=== PATIENT | male | born 1930 | race Caucasian/White ===

== ENCOUNTER 2018-08-05 17:00 | Inpatient (IN) ==
[2018-08-05] MEDS ORDERED: Isovue-370 500 ML INFUS..BTL IV ONE (17:28)
[2018-08-05] MEDS ORDERED: 0.9 % Sodium Chloride 500 ML IVC ONE (17:29)
[2018-08-05 17:44] LABS: Basophils # 0.1 K/mcL (0.0-0.2); Basophils % 0.4 %; Eosinophils % 0.1 %; Hematocrit 41.7 % (37.5-50.1); Hemoglobin 13.8 g/dL (12.9-16.9); Immature Granulocytes % 0.6 % (0-4); Lymphocytes % 12.3 %; Mean Corpuscular HGB Conc 33.1 g/dL (31.6-35.5); Mean Corpuscular Hemoglobin 30.9 pg (28.0-33.3); Mean Corpuscular Volume 93.5 fL (83.0-100.0); Mean Platelet Volume 9.8 fL (9.4-12.4); Monocytes # 1.8 K/mcL (0.0-1.3); Monocytes % 11.2 %; Platelet Count 226 K/mcL (140-400); Red Blood Count 4.46 M/mcL (4.19-5.50); Red Cell Distribution Width 13.2 % (11.5-14.5); Segmented Neutrophils % 75.4 %
[2018-08-05] MEDS: 0.9 % Sodium Chloride 1,000 ML IVC SCH (18:01)
[2018-08-05 18:04] LABS: Albumin/Globulin Ratio 0.6 (1.1-2.2); Bilirubin,Direct 0.3 mg/dL (0.0-0.2); Bilirubin,Indirect 0.3 mg/dL (0.0-1.2); Bilirubin,Total 0.6 mg/dL (0.3-1.0); Calcium 9.4 mg/dL (8.6-10.3); Globulin 5.2 g/dL (2.4-3.5); Magnesium 1.8 mg/dL (1.6-2.6); Phosphorous 1.5 mg/dL (2.7-4.5); Potassium 4.1 mEq/L (3.5-5.1); Total Protein 8.2 g/dL (6.4-8.9)
[2018-08-05 18:07] LABS: Troponin I 0.04 ng/mL (< 0.04)
[2018-08-05 18:32] LABS: Bilirubin,Urine Negative (Negative); Blood,Urine Large (Negative); Clarity,Urine Turbid (Clear); Color,Urine Yellow (Yellow); Glucose,Urine (UA) Normal (Normal); Ketones,Urine Negative (Negative); Leukocyte Esterase,Urine Large (Negative); Nitrite,Urine Negative (Negative); Protein,Urine >=300 mg/dL (Neg-Trace); Specific Gravity,Urine 1.009 (1.010-1.025); Urobilinogen,Urine Normal (Normal)
--- NOTE | 2018-08-05 18:32 | Emergency Department Note ---
Disposition Clinical Impression: Sepsis Qualifiers: Sepsis type: sepsis due to unspecified organism Qualified Code(s): A41.9 - Sepsis, unspecified organism UTI (urinary tract infection) Qualifiers: Urinary tract infection type: acute cystitis Hematuria presence: with hematuria Qualified Code(s): N30.01 - Acute cystitis with hematuria Ureteral obstruction Qualifiers: Laterality: unspecified laterality Qualified Code(s): N13.5 - Crossing vessel and stricture of ureter without hydronephrosis Disposition: Admitted As Inpatient Condition: Good Referrals: Kiran Jacobo MD [Primary Care Provider] - Forms: ED Satisfaction Letter General Adult HPI - General Chief complaint: ED Weakness Stated complaint: Weakness/dizzy/AMS Time Seen by Provider: 08/05/18 17:18 Source: patient Limitations: no limitations Nursing Notes Reviewed: Yes Vital Signs Reviewed: Yes - History of Present Illness HPI Narrative: Patient presenting to the emergency department with complaints of weakness and dizziness since this morning. Patient had 2 falls today and has not been acting himself. Patient does take Plavix area is unsure whether he hit his head. The patient has been recently treated for UTIs. Seen in urgent care as well as had a [facility] emergency department. Ellison was placed this time the patient pulled up with urology on Wednesday. The symptoms had been significant improving but given his history of what they described as purulent discharge from the initial Ellison patient likely has a UTI. Patient does have a temperature as well as tachycardia. Sepsis order set has been ordered. Imaging of his head for trauma, chest x-ray, abdomen and pelvis for further evaluation of possible infectious source given some abdominal tenderness to the suprapubic as well as l eft-sided abdomen. Pain Scale: 6 - Related Data Home Medications Medication Instructions Recorded Confirmed Tiotropium [Spiriva] 1 puff PO DAILY 05/02/15 07/25/18 Cartia Xt 120 mg PO QAM 07/03/18 07/25/18 Clopidogrel [Plavix] 75 mg PO DAILY 07/03/18 07/25/18 Ipratropium [Atrovent Inhaler] 2 puff IH Q6H 07/03/18 07/25/18 Losartan [Cozaar] 25 mg PO DAILY 07/03/18 07/25/18 Memantine [Namenda] 10 mg PO BID 07/03/18 07/25/18 Metoprolol [Lopressor] 25 mg PO QAM 07/03/18 07/25/18 Quetiapine Fumarate [Seroquel] 50 mg PO HS 07/03/18 07/25/18 Tamsulosin [Flomax] 0.4 mg PO DAILY 07/03/18 07/25/18 clonazePAM [Clonazepam] 0.5 mg PO PRN PRN 07/03/18 07/25/18 Previous Rx's Medication Instructions Recorded Phenazopyridine HCl [Pyridium] 200 mg PO TIDAC #9 tab 07/03/18 cephALEXin [Keflex] 500 mg PO QID #40 capsule 07/03/18 Cephalexin [Keflex] 500 mg PO TID #21 capsule 07/25/18 Phenazopyridine HCl [Pyridium] 200 mg PO TID #6 tab 07/25/18 Allergies Allergy/AdvReac Type Severity Reaction Status Date / Time azithromycin [From Zithromax] Allergy Mild Hives Verified 07/25/18 09:23 Review of Systems: CONSTITUTIONAL: Weakness fatigue and fever HEENT: Eyes: No visual changes. Ears, Nose, Throat: No hearing loss, difficulty talking or unable to swallow. SKIN: No rash or itching. CARDIOVASCULAR: No chest pain, chest pressure or chest discomfort. No palpitations or edema. RESPIRATORY: No shortness of breath, cough or sputum. GASTROINTESTINAL: No anorexia, nausea, vomiting or diarrhea. No abdominal pain or blood. GENITOURINARY: No burning on urination or hematuria. NEUROLOGICAL: Dizziness and near syncope No headache, paralysis, ataxia, numbness or tingling in the extremities. No change in bowel or bladder control. MUSCULOSKELETAL: No muscle pain, back pain, joint pain or stiffness. Past Medical History - Past Medical History Medical history: Reports: non-contributory, COPD, coronary artery disease, hypertension, other Surgical history: Reports: no surgical history, cholecystectomy Psychiatric history: Reports: no psych history - Social History Smoking Status: Former smoker Smokeless Tobacco Status: No Alcohol use: Reports: none Drug use: Reports: none Physical Exam General: Fatigue with generalized decrease in strength Head: Normocephalic Atraumatic Eyes: PERRL, EOMI ENT: Airway patent, no stridor Neck: supple Chest: Lungs clear to auscultation bilateral Cardiac: Regular rhythm Abdomen: soft, mild tenderness to the suprapubic and left lower quadrant nondistended; no guarding, rebound, or tenderness to percussion Musculoskeletal: Calves symmetric, nontender Skin: No rash, normal skin tone Neuro: Alert and Oriented to person, place, and time; No focal deficit, - General Limitations: no limitations General appearance: alert, in no apparent distress Course - Reevaluation(s) Reevaluation #1: Kidney function and troponin mildly elevated. GEORGINA with troponin of 0.04. Patient has elevated troponins in the past. Aspirin will be given after negative head CT. Leukocytosis with left shift. Source pending. Reevaluation #2: Blood cultures obtained. Patient with initial 500 mL bolus as well as 125 per hour given cardiac history. Antibiotics given, empiric, broad-spectrum. CT with bladder wall thickening as well as possible UPJ obstruction that will need further urology evaluation. Hospitalist accepts for admission. Vital Signs Temperature 101.7 F H 08/05/18 17:17 Pulse Rate 112 08/05/18 17:17 Respiratory Rate 28 08/05/18 17:17 Blood Pressure 147/65 08/05/18 17:17 O2 Sat by Pulse Oximetry 93 08/05/18 17:17 Temperature 100.6 F H 08/05/18 18:47 Pulse Rate 87 08/05/18 18:47 Respiratory Rate 28 08/05/18 18:47 Blood Pressure 131/65 08/05/18 18:47 O2 Sat by Pulse Oximetry 99 08/05/18 18:47 Oxygen Delivery Oxygen Delivery Nasal Cannula Medical Decision Making - Medical Records Medical records reviewed: Yes I reviewed the patient's medical records. - Lab Data Lab results reviewed: Yes I reviewed the patient's lab results. Result diagrams: 08/05/18 17:25 08/05/18 17:25 Lab Results 08/05/18 08/05/18 08/05/18 Range/Units 13:20 17:25 17:25 WBC 15.9 H (4.3-11.1) K/mcL RBC 4.46 (4.19-5.50) M/mcL Hgb 13.8 (12.9-16.9) g/dL Hct 41.7 (37.5-50.1) % MCV 93.5 (83.0-100.0) fL MCH 30.9 (28.0-33.3) pg MCHC 33.1 (31.6-35.5) g/dL RDW 13.2 (11.5-14.5) % Plt Count 226 (140-400) K/mcL MPV 9.8 (9.4-12.4) fL Immature Gran % 0.6 (0-4) % Seg Neutrophils % 75.4 % Lymphocytes % 12.3 % Monocytes % 11.2 % Eosinophils % 0.1 % Basophils % 0.4 % Neutrophils # 12.0 H (1.6-8.9) K/mcL Lymphocytes # 2.0 (0.6-4.6) K/mcL Monocytes # 1.8 H (0.0-1.3) K/mcL Eosinophils # 0.0 (0.0-0.6) K/mcL Basophils # 0.1 (0.0-0.2) K/mcL Sodium 133 L (136-145) mEq/L Potassium 4.1 (3.5-5.1) mEq/L Chloride 101 (98-107) mEq/L Carbon Dioxide 25 (23-29) mEq/L BUN 22 (8-23) mg/dL Creatinine 1.50 H (0.70-1.30) mg/dL Est GFR ( Amer) 53 L (> 60) Est GFR (Non-Af Amer) 44 L (> 60) BUN/Creatinine Ratio 15 (6-26) Glucose 165 H (70-105) mg/dL Calculated Osmolality 283 (280-300) Lactic Acid (0.5-2.2) mmol/L Calcium 9.4 (8.6-10.3) mg/dL Phosphorus 1.5 L (2.7-4.5) mg/dL Magnesium 1.8 (1.6-2.6) mg/dL Total Bilirubin 0.6 (0.3-1.0) mg/dL Direct Bilirubin 0.3 H (0.0-0.2) mg/dL Indirect Bilirubin 0.3 (0.0-1.2) mg/dL AST 20 (13-39) Units/L ALT 18 (7-52) Units/L Alkaline Phosphatase 83 (34-104) Units/L Troponin I 0.04 H* (< 0.04) ng/mL Serum Total Protein 8.2 (6.4-8.9) g/dL Albumin 3.0 L (3.5-5.7) g/dL Globulin 5.2 H (2.4-3.5) g/dL Albumin/Globulin Ratio 0.6 L (1.1-2.2) Urine Color Yellow (Yellow) Urine Clarity Turbid A (Clear) Urine pH 6.0 (5.0-8.0) pH Units Ur Specific [place] 1.009 L (1.010-1.025) Urine Protein >=300 H (Neg-Trace) mg/dL Urine Glucose (UA) Normal (Normal) mg/dL Urine Ketones Negative (Negative) mg/dL Urine Blood Large H (Negative) Urine Nitrite Negative (Negative) Urine Bilirubin Negative (Negative) Urine Urobilinogen Normal (Normal) mg/dL Ur Leukocyte Esterase Large H (Negative) Urine Microscopic RBC 50-100 H (0-3) per hpf Urine Microscopic WBC TNTC H (0-3) per hpf Ur Squamous Epith Cells Many H (None-Few) per lpf Urine Bacteria Many H (None-Few) per hpf Hyaline Casts None Seen (None-Few) per lpf Ur Culture Indicated? NO. A (NO) 08/05/18 Range/Units 17:25 WBC (4.3-11.1) K/mcL RBC (4.19-5.50) M/mcL Hgb (12.9-16.9) g/dL Hct (37.5-50.1) % MCV (83.0-100.0) fL MCH (28.0-33.3) pg MCHC (31.6-35.5) g/dL RDW (11.5-14.5) % Plt Count (140-400) K/mcL MPV (9.4-12.4) fL Immature Gran % (0-4) % Seg Neutrophils % % Lymphocytes % % Monocytes % % Eosinophils % % Basophils % % Neutrophils # (1.6-8.9) K/mcL Lymphocytes # (0.6-4.6) K/mcL Monocytes # (0.0-1.3) K/mcL Eosinophils # (0.0-0.6) K/mcL Basophils # (0.0-0.2) K/mcL Sodium (136-145) mEq/L Potassium (3.5-5.1) mEq/L Chloride (98-107) mEq/L Carbon Dioxide (23-29) mEq/L BUN (8-23) mg/dL Creatinine (0.70-1.30) mg/dL Est GFR ( Amer) (> 60) Est GFR (Non-Af Amer) (> 60) BUN/Creatinine Ratio (6-26) Glucose (70-105) mg/dL Calculated Osmolality (280-300) Lactic Acid 2.7 H (0.5-2.2) mmol/L Calcium (8.6-10.3) mg/dL Phosphorus (2.7-4.5) mg/dL Magnesium (1.6-2.6) mg/dL Total Bilirubin (0.3-1.0) mg/dL Direct Bilirubin (0.0-0.2) mg/dL Indirect Bilirubin (0.0-1.2) mg/dL AST (13-39) Units/L ALT (7-52) Units/L Alkaline Phosphatase (34-104) Units/L Troponin I (< 0.04) ng/mL Serum Total Protein (6.4-8.9) g/dL Albumin (3.5-5.7) g/dL Globulin (2.4-3.5) g/dL Albumin/Globulin Ratio (1.1-2.2) Urine Color (Yellow) Urine Clarity (Clear) Urine pH (5.0-8.0) pH Units Ur Specific [place] (1.010-1.025) Urine Protein (Neg-Trace) mg/dL Urine Glucose (UA) (Normal) mg/dL Urine Ketones (Negative) mg/dL Urine Blood (Negative) Urine Nitrite (Negative) Urine Bilirubin (Negative) Urine Urobilinogen (Normal) mg/dL Ur Leukocyte Esterase (Negative) Urine Microscopic RBC (0-3) per hpf Urine Microscopic WBC (0-3) per hpf Ur Squamous Epith Cells (None-Few) per lpf Urine Bacteria (None-Few) per hpf Hyaline Casts (None-Few) per lpf Ur Culture Indicated? (NO) - Radiology Data Radiology results reviewed: Yes I reviewed the patient's radiology results. - EKG Data EKG #1 EKG attestation: Yes I reviewed and interpreted this EKG. EKG results narrative: EKG shows sinus tachycardia with a heart rate of 100. MT interval 164 every RS 79 QTC [address] elevations or depressions. No significant change other than tachycardia from EKG of 05/02/15.
[2018-08-05] MEDS ORDERED: Piperacillin/Tazobactam 3.375 GM in 0.9 % Sodium Chloride Mini Bag 100 ML IVPB ONE (18:34)
[2018-08-05 18:35] LABS: Bacteria,Urine Many per hpf (None-Few); RBC,Urine 50-100 per hpf (0-3); Squamous Epithelial Cell,Urine Many per lpf (None-Few); WBC,Urine TNTC per hpf (0-3)
[2018-08-05 18:53] LABS: Hyaline Casts,Urine None Seen per lpf (None-Few)
[2018-08-05] MEDS ORDERED: Acetaminophen 325 MG TABLET PO STA (19:26)
[2018-08-06] MEDS: Aspirin Enteric Coated 81 MG Tablet PO SCH ×2 (00:07→20:44)
[2018-08-06] MEDS: clonazePAM 0.5 MG TABLET PO PRN (00:53)
[2018-08-06] MEDS ORDERED: Naloxone 0.4 MG/ML INJ IVP PRN (01:42)
[2018-08-06] MEDS: 0.9 % Sodium Chloride 1,000 ML IVC SCH ×4 (02:20→20:42)
--- NOTE | 2018-08-06 03:52 | Internal Med History&Physical ---
Date of Encounter: 08/06/18 Time of Encounter: 00:30 Internal Medicine - H&P: HPI Chief complaint: Urinary tract infection Admitted From: Emergency Dept Plans for Post Hospital Care: Home History of present illness: Mr. Fatima is a 88 year old male Patient presented to the emergency room because he felt weak and has not been able to walk very well for a couple days. He states also that he has fallen twice in the last 24 hours but denies hitting his head he denies cough, chest pain, diarrhea, shortness of breath but does have oxygen at night at 2 L nasal cannula due to history of silicosis. He states he has some abdominal pain in the lower part of his abdomen and was treated 2 weeks ago for urinary tract inf ection. He denies hematuria and dysuria. In the emergency room patient's CBC was within normal limits, BMP showed elevated creatinine of 1.50 and a glucose of 165. Patient's initial lactic acid was 2.7, troponin was 0.04 the patient has a history of elevated troponins. EKG showed sinus tachycardia with a rate of 100 a QTC of [address] changes. Urinalysis showed large blood, large leukocyte esterase but negative nitrites. An abdomen/pelvis CT was also performed with results as below: The wall of the urinary bladder is irregularly thickened and there is mild perivesical fat stranding. While the bladder wall thickening may represent hypertrophy from outlet obstruction in this patient with prostatomegaly, cystitis and tumor are not excluded. Correlation with cystoscopy recommended. There is new right hydronephrosis and hydroureter extending to the urinary bladder with no evidence of structure in calculus. Obstructing stricture or mass at the UVJ must be considered and follow-up cystoscopy with retrograde study may be helpful. Stable findings at the lung bases as above in this patient with history of silicosis and progressive massive fibrosis. Patient's head CT showed no acute intracranial abnormalities and chest x-ray demonstrated chronic parenchymal disease most compatible with silicosis with progressive massive fibrosis in the upper lobes no acute process noted. Blood cultures and urine cultures were obtained, patient was started on Zosyn and admitted to the hospital for further management. upon my assessment she states that he feels anxious. He also is shivering and is requesting blankets. While I was examining the patient patient's heart rate increased to the 170s/180s. Patient stated that he has a history of a fast heart rate, and review of his history shows atrial fibrillation with RVR. Stat echocardiogram was obtained which showed atrial fibrillation. I gave the patient 15 mg of Cardizem which improved his heart rate to the 130s to 140s. Patient's blood pressures were stable during this time and it Cardizem drip was started. Patient denied chest pain during this time and had no other complaints besides shivering. Patient's heart rate eventually became regular and is shivering stopped. Patient's nighttime medications were also given, including his dose of when necessary clonazepam which he does regularly take for anxiety. I discussed with the patient his CODE STATUS and he stated that he would not want to be resuscitated, declined chest compressions if required and also did not want to be intubated. 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 TURP - Social History Smoking Status: Former smoker Smokeless Tobacco Status: No Alcohol use: none Drug use: none - Family History Father Hx Family Cancer: Yes Internal Medicine - H&P: Meds Clopidogrel [Plavix] 75 mg PO DAILY 07/03/18 [History] Ipratropium [Atrovent Inhaler] 2 puff IH Q4H PRN 07/03/18 [History] Losartan [Cozaar] 25 mg PO DAILY 07/03/18 [History] Memantine [Namenda] 10 mg PO BID 07/03/18 [History] Metoprolol [Lopressor] 25 mg PO QAM PRN MDD 2 TABS PER 24H 07/03/18 [History] Quetiapine Fumarate [Seroquel] 50 mg PO HS 07/03/18 [History] Tamsulosin [Flomax] 0.4 mg PO DAILY 07/03/18 [History] clonazePAM [Clonazepam] 0.5 mg PO DAILY PRN 07/03/18 [History] Aspirin [Lo-Dose Aspirin EC] 81 mg PO HS 08/05/18 [History] Loratadine [Allergy Relief] 10 mg PO DAILY PRN 08/05/18 [History] Tiotropium [Spiriva] 1 puff IH DAILY 08/05/18 [History] dilTIAZem HCl [Diltiazem 24Hr ER] 120 mg PO DAILY 08/05/18 [History] Allergy/AdvReac Type Severity Reaction Status Date / Time azithromycin [From Zithromax] Allergy Mild Hives Verified 07/25/18 09:23 fluticasone [From Flonase] AdvReac See Verified 08/05/18 22:59 Comments gabapentin AdvReac Headache Verified 08/05/18 22:59 All Systems PM: A 10-system review of systems was performed and is negative for pertinent findings except as documented above in the HPI. - Constitutional Vitals: Temp Pulse Resp BP Pulse Ox 98.1 F 134 18 100/42 97 08/06/18 00:25 08/06/18 01:16 08/06/18 01:16 08/06/18 03:19 08/06/18 01:16 General appearance: Present: cooperative, A&O X 3, pleasant, no acute distress, answers questions appropriately Exam: As above - Head Head exam: Present: normal inspection - Eye Eye exam: Present: EOMI, normal appearance - Neck Neck exam general surgery: Absent: tenderness - Respiratory Respiratory exam: Present: respiratory distress, wheezes. Absent: chest wall tenderness, decreased breath sounds, CTAB - Cardiovascular Cardiovascular exam: Present: irregular rhythm. Absent: diastolic murmur, s ystolic murmur Additional comments: Patient's heart rate initially on exam was tachycardic and irregular, converting to atrial fibrillation with RVR then normalizing to regular rate after treatment - GI/Abdominal GI/Abdominal exam: Present: normal bowel sounds, soft, tenderness Additional comments: Suprapubic tenderness with palpation - Extremities Exam Extremities exam: Present: warm, radial pulses palpable and symmetrical. Absent: calf tenderness, pedal edema, tenderness - Neurological Exam Neurological exam: Present: no focal deficits, strengths equal and symetr throughout. Absent: motor sensory deficit, facial droop, speech deficit - Skin Skin exam: Present: dry, normal color, warm. Absent: rash Internal Med - H&P Results - Labs CBC & Chem 7: 08/05/18 17:25 08/05/18 17:25 Labs: Short CBC 08/05/18 Range/Units 17:25 WBC 15.9 H (4.3-11.1) K/mcL Hgb 13.8 (12.9-16.9) g/dL Hct 41.7 (37.5-50.1) % Plt Count 226 (140-400) K/mcL Neutrophils # 12.0 H (1.6-8.9) K/mcL BMP 08/05/18 17:25 Sodium 133 L Potassium 4.1 Chloride 101 Carbon Dioxide 25 BUN 22 Creatinine 1.50 H Glucose 165 H Calcium 9.4 Cardiac Enzymes 08/05/18 08/06/18 Range/Units 17:25 01:26 Troponin I 0.04 H* 0.04 H* (< 0.04) ng/mL Liver Function 08/05/18 Range/Units 17:25 Total Bilirubin 0.6 (0.3-1.0) mg/dL Direct Bilirubin 0.3 H (0.0-0.2) mg/dL AST 20 (13-39) Units/L ALT 18 (7-52) Units/L Alkaline Phosphatase 83 (34-104) Units/L Albumin 3.0 L (3.5-5.7) g/dL Urine 08/05/18 Range/Units 13:20 Urine Color Yellow (Yellow) Urine Clarity Turbid A (Clear) Urine pH 6.0 (5.0-8.0) pH Units Ur Specific [place] 1.009 L (1.010-1.025) Urine Protein >=300 H (Neg-Trace) mg/dL Urine Glucose (UA) Normal (Normal) mg/dL - Impressions ITS Impressions Chest X-Ray 08/05/18 17:21 IMPRESSION: Chronic parenchymal lung disease. 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 No definite acute process is demonstrated D/ / Yazan Walsh MD / Yazan Walsh MD Interpreting Provider: Yazan Walsh MD Abdomen/Pelvis CT 08/05/18 17:28 IMPRESSION: The wall of the urinary bladder is irregularly thickened and there is mild perivesical fat stranding. While the bladder wall thickening may represent hypertrophy from outlet obstruction in this patient with prostatomegaly, cystitis and tumor are not excluded. Correlation with cystoscopy recommended. There is new right hydronephrosis and hydroureter extending to the urinary bladder with no evidence of structure in calculus. Obstructing stricture or mass at the UVJ must be considered and follow-up cystoscopy with retrograde study may be helpful. Stable findings at the lung bases as above in this patient with history of silicosis and progressive massive fibrosis. D/ / Abdoulaye Billy MD / Abdoulaye Billy MD Interpreting Provider: Abdoulaye Billy MD Head CT 08/05/18 17:28 IMPRESSION: No acute intracranial abnormality. D/ / Abdoulaye Billy MD / Abdoulaye Billy MD Interpreting Provider: Abdoulaye Billy MD - Assessment and plan (1) UTI (urinary tract infection) Current Visit: Yes Status: Acute Assessment and plan: Patient's urinalysis was positive for leukocyte esterase, large blood and negative for nitrites. He had previously been treated 2 weeks ago for urinary tract infection as well. Blood and urine cultures drawn, patient started on Zosyn. Patient's CT scan also demonstrated new hydronephrosis and hydroureter extending to the urinary bladder without evidence of calculus. Obstructing stricture or mass at the UVJ should be considered, and radiology recommended cystoscopy with retrograde study. Continue IV antibiotics Follow-up cultures when available Continue to monitor urine output Urology consult Qualifiers: Urinary tract infection type: acute cystitis Hematuria presence: with hematuria Qualified Code(s): N30.01 - Acute cystitis with hematuria (2) Atrial fibrillation with RVR Current Visit: No Status: Acute Assessment and plan: Patient has history of atrial fibrillation with RVR, with episode of A. fib with RVR during my examination and through the night. Patient responded well to IV bolus of diltiazem 15 mg, and rate seem to be controlled with IV fluid boluses. Patient continued to be monitored closely, denied chest pain throughout the night. Patient also denies shortness of breath but does have elevated respiratory rate. Unclear what patient's baseline respiratory rate is consi dering his history of silicosis. Continue to monitor In your IV fluid boluses, and consider restarting diltiazem drip as long as blood pressures allow Restart home meds when controlled in the morning (3) Acute respiratory failure with hypoxia Current Visit: No Status: Acute Assessment and plan: Patient is on 2 L of oxygen which he states he uses mostly at night. He was hypoxic into the 80s on room air during my evaluation. Patient was placed on oxygen mask at 5 L and his oxygenation improved. Currently he is maintaining saturations greater than 96% on 3 L nasal cannula. Lung sounds remain at p atient's baseline, which are mildly coarse. Patient also has slight wheezing as well. Breathing treatment with ipratropium Continue oxygenation to maintain sats greater than 90% Monitor respiratory rate Continuous pulse ox bedside (4) Elevated troponin Current Visit: No Status: Acute Assessment and plan: Patient had elevated troponin of 0.04, and on repeat continued to be elevated at 0.04. EKG demonstrated atrial fibrillation with RVR but no ST changes noted. Patient also denies chest pain. He has a history of elevated troponin in this range in the past as well. Elevation likely secondary to demand ischemia due to A. fib as well as hypoxia. Continue to monitor Continue to trend troponins (5) Elevated lactic acid level Current Visit: Yes Status: Acute Assessment and plan: Agents lactic acid in the emergency room was 2.7, increasing to 3.6 on recheck. Patient being treated for urinary tract infection, patient's temperature has remained within normal limits. He has elevated heart rate due to atrial fibrillation and respiratory rate also increased which is elevated at baseline due to his lung pathology. Continue IV fluid hydration Treating urinary tract infection as above Continue to monitor lactic acid Monitor vitals for worsening signs of infection (6) Hyponatremia Current Visit: No Status: Acute Assessment and plan: Slightly low sodium of 133. Patient is receiving IV fluids. Recheck labs in the morning (7) Silicosis Current Visit: Yes Status: Acute Assessment and plan: History of silicosis, patient is a former [employer]. Continue oxygen supplementation as required Breathing Treatments (8) DVT prophylaxis Current Visit: Yes Status: Acute Assessment and plan: Subcutaneous Heparin - Time Spent With Patient Total time spent is greater than 50% in coordination of care (as documented) at patient's floor/unit and/or counseling patient: Greater than 35 minutes
[2018-08-06] MEDS: Ipratropium Neb 0.5 MG NEBULIZER IH SCH ×5 (05:59→20:52)
[2018-08-06] MEDS ORDERED: *HR* Heparin 5,000 UNIT/ML VIAL SQ SCH (06:00)
[2018-08-06 06:17] LABS: Hematocrit 33.3 % (37.5-50.1); Mean Corpuscular HGB Conc 32.4 g/dL (31.6-35.5); Mean Corpuscular Hemoglobin 30.4 pg (28.0-33.3); Mean Corpuscular Volume 93.8 fL (83.0-100.0); Platelet Count 189 K/mcL (140-400); Red Blood Count 3.55 M/mcL (4.19-5.50); Red Cell Distribution Width 13.3 % (11.5-14.5)
[2018-08-06 06:21] LABS: Hemoglobin 10.8 g/dL (12.9-16.9)
[2018-08-06 07:05] LABS: Calcium 7.6 mg/dL (8.6-10.3); Potassium 3.7 mEq/L (3.5-5.1)
[2018-08-06] MEDS: Piperacillin/Tazobactam 3.375 GM in 0.9 % Sodium Chloride Mini Bag 100 ML IVPB SCH ×2 (08:27→16:20)
[2018-08-06] MEDS ORDERED: Diltiazem CD (24hr) 120 MG CAPSULE PO SCH (09:00)
--- NOTE | 2018-08-06 09:36 | Urology - Consult Note ---
Date of Encounter: 08/06/18 Time of Encounter: 09:33 - Assessment and Plan (1) Acute renal insufficiency Current Visit: Yes Status: Acute Assessment and plan: Patient serum creatinine has slightly worsened from yesterday to today. We will need to continue with hydration and we will follow this closely. (2) Hydronephrosis, right Current Visit: Yes Status: Acute Assessment and plan: This is likely secondary to chronic urinary retention and reflux from the urinary retention. We will need to keep catheter in place at this time. No urgent need for cystoscopy and right ureteral stent placement (3) Urinary retention Current Visit: Yes Status: Acute Assessment and plan: Catheter will need to remain in place. We will attempt to obtain outside urology records once patient more lucid (4) Sepsis Current Visit: Yes Status: Acute Assessment and plan: Continue with broad-spectrum antibiotics until cultures return. Qualifiers: Sepsis type: sepsis due to unspecified organism Qualified Code(s): A41.9 - Sepsis, unspecified organism (5) UTI (urinary tract infection) Current Visit: Yes Status: Acute Assessment and plan: Continue with broad-spectrum antibiotics until cultures return Qualifiers: Urinary tract infection type: acute cystitis Hematuria presence: with hematuria Qualified Code(s): N30.01 - Acute cystitis with hematuria Urology CN:HPI Consult date: 08/06/18 Reason for consult Urology: Hydronephrosis Requesting physician: Az Cheung History of present illness: Aleksandr is a 88-year-old male with a history of off-and-on catheterization per the patient. Patient was at [facility] last week where a catheter was placed. Approximately 600 mL's of urine was returned. According to the notes from that visit the patient has a urologist and the urologist had remove the catheter prior to that visit. I do not have any documentation and the patient does not follow with our group. Patient is now admitted secondary to acute UTI with fever. Patient also with leukocytosis and elevated serum creatinine. 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 TURP - Social History Smoking Status: Former smoker Smokeless Tobacco Status: No Alcohol use: none Drug use: none - Family History Father Hx Family Cancer: Yes Medications and Allergies Clopidogrel [Plavix] 75 mg PO DAILY 07/03/18 [History] Ipratropium [Atrovent Inhaler] 2 puff IH Q4H PRN 07/03/18 [History] Losartan [Cozaar] 25 mg PO DAILY 07/03/18 [History] Memantine [Namenda] 10 mg PO BID 07/03/18 [History] Metoprolol [Lopressor] 25 mg PO QAM PRN MDD 2 TABS PER 24H 07/03/18 [History] Quetiapine Fumarate [Seroquel] 50 mg PO HS 07/03/18 [History] Tamsulosin [Flomax] 0.4 mg PO DAILY 07/03/18 [History] clonazePAM [Clonazepam] 0.5 mg PO DAILY PRN 07/03/18 [History] Aspirin [Lo-Dose Aspirin EC] 81 mg PO HS 08/05/18 [History] Loratadine [Allergy Relief] 10 mg PO DAILY PRN 08/05/18 [History] Tiotropium [Spiriva] 1 puff IH DAILY 08/05/18 [History] dilTIAZem HCl [Diltiazem 24Hr ER] 120 mg PO DAILY 08/05/18 [History] 3 Allergy/AdvReac Type Severity Reaction Status Date / Time azithromycin [From Zithromax] Allergy Mild Hives Verified 07/25/18 09:23 fluticasone [From Flonase] AdvReac See Verified 08/05/18 22:59 Comments gabapentin AdvReac Headache Verified 08/05/18 22:59 Review of Systems - Constitutional fever(s), weakness, no chills - EENT Nose, mouth and throat: no dizziness, no sore throat - Cardiovascular no chest pain, no diaphoresis - Respiratory no cough, no dyspnea - Gastrointestinal no nausea, no vomiting - Genitourinary as per HPI - Musculoskeletal muscle weakness, no back pain - Integumentary no erythema, no swelling - Neurological confusion, no sensory deficit, no syncope - Psychiatric confusion, no depression - Hematologic/Lymphatic no easy bleeding - Allergic/Immunologic no throat swelling, no wheezing Exam Initial Vital Signs Temp Pulse Resp BP Pulse Ox 101.7 F H 112 28 147/65 93 08/05/18 17:17 08/05/18 17:17 08/05/18 17:17 08/05/18 17:17 08/05/18 17:17 General/Neuological: alert and oriented x 3 Eyes: normal pupils, non-icteric Neck: no lymphadenopathy noted, supple to touch Cardiovascular: RRR, no murmurs Respiratory: normal respiratory effort, clear bilaterally ABD: soft, nontender, no masses palpated, good bowel sounds Back: no pain on percussion bilaterally : normal phallus, normal scrotum, testicles and epididymides normal, urethral meatus normal with catheter draining slightly cloudy urine Skin: no rashes noted Musculoskeletal: normal gait, FROMx4 Urology Results - Labs 08/06/18 05:45 08/06/18 05:45 Abnormal lab results WBC 19.5 K/mcL (4.3-11.1) H 08/06/18 05:45 RBC 3.55 M/mcL (4.19-5.50) L 08/06/18 05:45 Hgb 10.8 g/dL (12.9-16.9) L D 08/06/18 05:45 Hct 33.3 % (37.5-50.1) L 08/06/18 05:45 Neutrophils # 12.0 K/mcL (1.6-8.9) H 08/05/18 17:25 Monocytes # 1.8 K/mcL (0.0-1.3) H 08/05/18 17:25 Chloride 110 mEq/L (98-107) H 08/06/18 05:45 Carbon Dioxide 22 mEq/L (23-29) L 08/06/18 05:45 BUN 24 mg/dL (8-23) H 08/06/18 05:45 Creatinine 1.61 mg/dL (0.70-1.30) H 08/06/18 05:45 Est GFR ( Amer) 49 (> 60) L 08/06/18 05:45 Est GFR (Non-Af Amer) 41 (> 60) L 08/06/18 05:45 Glucose 129 mg/dL (70-105) H 08/06/18 05:45 Calcium 7.6 mg/dL (8.6-10.3) L 08/06/18 05:45 Phosphorus 1.5 mg/dL (2.7-4.5) L 08/05/18 17:25 Direct Bilirubin 0.3 mg/dL (0.0-0.2) H 08/05/18 17:25 Troponin I 0.07 ng/mL (< 0.04) H* 08/06/18 05:45 Albumin 3.0 g/dL (3.5-5.7) L 08/05/18 17:25 Globulin 5.2 g/dL (2.4-3.5) H 08/05/18 17:25 Albumin/Globulin Ratio 0.6 (1.1-2.2) L 08/05/18 17:25 Urine Clarity Turbid (Clear) A 08/05/18 13:20 Ur Specific [place] 1.009 (1.010-1.025) L 08/05/18 13:20 Urine Protein >=300 mg/dL (Neg-Trace) H 08/05/18 13:20 Urine Blood Large (Negative) H 08/05/18 13:20 Ur Leukocyte Esterase Large (Negative) H 08/05/18 13:20 Urine Microscopic RBC 50-100 per hpf (0-3) H 08/05/18 13:20 Urine Microscopic WBC TNTC per hpf (0-3) H 08/05/18 13:20 Ur Squamous Epith Cells Many per lpf (None-Few) H 08/05/18 13:20 Urine Bacteria Many per hpf (None-Few) H 08/05/18 13:20 Ur Culture Indicated? NO. (NO) A 08/05/18 13:20 Diabetes panel 08/05/18 08/06/18 Range/Units 17:25 05:45 Sodium 133 L 137 (136-145) mEq/L Potassium 4.1 3.7 (3.5-5.1) mEq/L Chloride 101 110 H (98-107) mEq/L Carbon Dioxide 25 22 L (23-29) mEq/L BUN 22 24 H (8-23) mg/dL Creatinine 1.50 H 1.61 H (0.70-1.30) mg/dL Glucose 165 H 129 H (70-105) mg/dL Calcium 9.4 7.6 L (8.6-10.3) mg/dL AST 20 (13-39) Units/L ALT 18 (7-52) Units/L Alkaline Phosphatase 83 (34-104) Units/L Albumin 3.0 L (3.5-5.7) g/dL Calcium panel 08/05/18 08/06/18 Range/Units 17:25 05:45 Calcium 9.4 7.6 L (8.6-10.3) mg/dL Phosphorus 1.5 L (2.7-4.5) mg/dL Albumin 3.0 L (3.5-5.7) g/dL Pituitary panel 08/05/18 08/06/18 Range/Units 17:25 05:45 Sodium 133 L 137 (136-145) mEq/L Potassium 4.1 3.7 (3.5-5.1) mEq/L Chloride 101 110 H (98-107) mEq/L Carbon Dioxide 25 22 L (23-29) mEq/L BUN 22 24 H (8-23) mg/dL Creatinine 1.50 H 1.61 H (0.70-1.30) mg/dL Glucose 165 H 129 H (70-105) mg/dL Calcium 9.4 7.6 L (8.6-10.3) mg/dL Adrenal panel 08/05/18 08/06/18 Range/Units 17:25 05:45 Sodium 133 L 137 (136-145) mEq/L Potassium 4.1 3.7 (3.5-5.1) mEq/L Chloride 101 110 H (98-107) mEq/L Carbon Dioxide 25 22 L (23-29) mEq/L BUN 22 24 H (8-23) mg/dL Creatinine 1.50 H 1.61 H (0.70-1.30) mg/dL Glucose 165 H 129 H (70-105) mg/dL Calcium 9.4 7.6 L (8.6-10.3) mg/dL Total Bilirubin 0.6 (0.3-1.0) mg/dL AST 20 (13-39) Units/L ALT 18 (7-52) Units/L Alkaline Phosphatase 83 (34-104) Units/L Albumin 3.0 L (3.5-5.7) g/dL All other labs normal. - Imaging CT scan - abdomen: image reviewed CT scan - pelvis: image reviewed Consult Discharge Plan - Plan Referrals: Kiran Jacobo MD [Primary Care Provider] -
[2018-08-06] MEDS: *HR* Enoxaparin 80 MG/0.8 ML SYRINGE SQ SCH (18:15)
--- NOTE | 2018-08-06 23:57 | Internal Med Progress Note ---
Hospitalist Progress Note - Encounter Date of Encounter: 08/06/18 - Exam Vitals: Temp Pulse Resp BP Pulse Ox 98.8 F 88 16 117/67 92 08/06/18 21:34 08/06/18 21:34 08/06/18 21:34 08/06/18 21:34 08/06/18 21:34 - Time Spent with Patient Total time spent is greater than 50% in coordination of care (as documented) at patient's floor/unit and/or counseling patient: Internal Medicine: Result - Labs CBC & Chem 7: 08/06/18 05:45 08/06/18 05:45 Labs: Short CBC 08/06/18 Range/Units 05:45 WBC 19.5 H (4.3-11.1) K/mcL Hgb 10.8 L D (12.9-16.9) g/dL Hct 33.3 L (37.5-50.1) % Plt Count 189 (140-400) K/mcL BMP 08/06/18 05:45 Sodium 137 Potassium 3.7 Chloride 110 H Carbon Dioxide 22 L BUN 24 H Creatinine 1.61 H Glucose 129 H Calcium 7.6 L Cardiac Enzymes 08/06/18 08/06/18 Range/Units 01:26 05:45 Troponin I 0.04 H* 0.07 H* (< 0.04) ng/mL Consult Discharge Plan - Plan Referrals: Kiran Jacobo MD [Primary Care Provider] -
--- NOTE | 2018-08-06 23:57 | Event Note ---
Date of Encounter: 08/07/18 Time of Encounter: 11:45 Pt admitted earlier for urosepsis and had first known episode of RVR. Converted to sinus with diltiazem drip which was stopped due to hypotension. Pt has hx of SVT. Unclear if metoprolol was for this or HTN. No DM. No stroke or PA/PVD. [id number] score is 2 to 3. No hx of GIB. D/W pt and his family, agreeable to AC. Start with lovenox. If no bleeding issues may swith to Apixaban. Pt given metoprolol today. Later pt had another episode of RVR. Given diltiazem IVP 5 mg and rate c ntrolled. INstead of trying a higher dose of diltiazem CD 180mg/day than home dose of 120 mg/day, will split into 45 mg PO q 6H. If rate controlled and no hypotension then can consolidate into 45mg x 4 = 180 mg CD dose or if ended up on higher q 6H dose then consolidate accordingly. Q 6H dosing can save time with rapid titration of diltiazem dosing. D/W nurse this dosing rationale.
[2018-08-07] MEDS: Ipratropium Neb 0.5 MG NEBULIZER IH SCH ×7 (00:10→23:52)
[2018-08-07] MEDS: Piperacillin/Tazobactam 3.375 GM in 0.9 % Sodium Chloride Mini Bag 100 ML IVPB SCH ×3 (01:01→16:08)
[2018-08-07] MEDS ORDERED: *HR* Metoprolol 5 MG/5 ML VIAL IVP ONE (02:40)
[2018-08-07] MEDS: clonazePAM 0.5 MG TABLET PO PRN ×2 (02:52→21:39)
[2018-08-07] MEDS: 0.9 % Sodium Chloride 1,000 ML IVC SCH ×2 (05:06→11:50)
[2018-08-07] MEDS: *HR* Enoxaparin 80 MG/0.8 ML SYRINGE SQ SCH (05:07)
[2018-08-07 06:56] LABS: Basophils # 0.1 K/mcL (0.0-0.2); Basophils % 0.5 %; Eosinophils # 0.1 K/mcL (0.0-0.6); Eosinophils % 0.7 %; Hemoglobin 10.3 g/dL (12.9-16.9); Immature Granulocytes % 0.7 % (0-4); Lymphocytes # 2.3 K/mcL (0.6-4.6); Lymphocytes % 15.8 %; Mean Corpuscular HGB Conc 31.2 g/dL (31.6-35.5); Mean Corpuscular Volume 96.2 fL (83.0-100.0); Mean Platelet Volume 10.5 fL (9.4-12.4); Monocytes # 1.8 K/mcL (0.0-1.3); Monocytes % 12.4 %; Neutrophils # 10.3 K/mcL (1.6-8.9); Platelet Count 189 K/mcL (140-400); Red Blood Count 3.43 M/mcL (4.19-5.50); Red Cell Distribution Width 13.7 % (11.5-14.5); Segmented Neutrophils % 69.9 %
[2018-08-07 07:13] LABS: Calcium 7.9 mg/dL (8.6-10.3); Potassium 3.9 mEq/L (3.5-5.1)
--- NOTE | 2018-08-07 08:45 | Urology Progress Note ---
Date of Encounter: 08/07/18 Time of Encounter: 08:44 - Assessment and Plan (1) Acute renal insufficiency Current Visit: Yes Status: Acute Assessment and plan: Improving overnight (2) Hydronephrosis, right Current Visit: Yes Status: Acute Assessment and plan: With serum creatinine improved no urgent need for treatment. Primary urologist can follow-up with this (3) Urinary retention Current Visit: Yes Status: Acute Assessment and plan: Patient will need to continue with catheterization at this time. I recommended for the patient to follow up with his urologist upon discharge. (4) Sepsis Current Visit: Yes Status: Acute Assessment and plan: Recommend to continue broad-spectrum antibiotics until cultures return. Recommend 10 days of antibiotics at that time. Urology will sign off please call with any questions. Qualifiers: Sepsis type: sepsis due to unspecified organism Qualified Code(s): A41.9 - Sepsis, unspecified organism (5) UTI (urinary tract infection) Current Visit: Yes Status: Acute Qualifiers: Urinary tract infection type: acute cystitis Hematuria presence: with hematuria Qualified Code(s): N30.01 - Acute cystitis with hematuria Progress Note Narrative: Patient seen this morning. Patient more lucid this morning. Patient states that he follows with Dr. Durant in [place]. Objective Initial Vital Signs Temp Pulse Resp BP Pulse Ox 101.7 F H 112 28 147/65 93 08/05/18 17:17 08/05/18 17:17 08/05/18 17:17 08/05/18 17:17 08/05/18 17:17 - General physical appearance Present: well developed, well nourished - Respiratory Present: normal expansion, normal respiratory effort - Abdomen Present: soft. Absent: tender - Genitourinary Present: other (Clear urine in catheter tubing with some debris) - Labs 08/07/18 06:15 08/07/18 06:15 Diabetes panel 08/07/18 Range/Units 06:15 Sodium 137 (136-145) mEq/L Potassium 3.9 (3.5-5.1) mEq/L Chloride 109 H (98-107) mEq/L Carbon Dioxide 23 (23-29) mEq/L BUN 22 (8-23) mg/dL Creatinine 1.54 H (0.70-1.30) mg/dL Glucose 108 H (70-105) mg/dL Calcium 7.9 L (8.6-10.3) mg/dL Calcium panel 08/07/18 Range/Units 06:15 Calcium 7.9 L (8.6-10.3) mg/dL Pituitary panel 08/07/18 Range/Units 06:15 Sodium 137 (136-145) mEq/L Potassium 3.9 (3.5-5.1) mEq/L Chloride 109 H (98-107) mEq/L Carbon Dioxide 23 (23-29) mEq/L BUN 22 (8-23) mg/dL Creatinine 1.54 H (0.70-1.30) mg/dL Glucose 108 H (70-105) mg/dL Calcium 7.9 L (8.6-10.3) mg/dL Adrenal panel 08/07/18 Range/Units 06:15 Sodium 137 (136-145) mEq/L Potassium 3.9 (3.5-5.1) mEq/L Chloride 109 H (98-107) mEq/L Carbon Dioxide 23 (23-29) mEq/L BUN 22 (8-23) mg/dL Creatinine 1.54 H (0.70-1.30) mg/dL Glucose 108 H (70-105) mg/dL Calcium 7.9 L (8.6-10.3) mg/dL Consult Discharge Plan - Plan Referrals: Kiran Jacobo MD [Primary Care Provider] -
[2018-08-07] MEDS ORDERED: Diltiazem CD (24hr) 180 MG CAPSULE PO SCH (09:00)
--- NOTE | 2018-08-07 09:05 | Cardiology Consult Note ---
<Carlos Rodriguez - Last Filed: 08/07/18 10:30> Date of Encounter: 08/07/18 Time of Encounter: 09:10 Assessment and Plan (1) Silicosis Current Visit: Yes Status: Acute Per Cardiology: Management per primary service. Suspect contributing factor to A. fib with RVR. (2) Sepsis Current Visit: Yes Status: Acute Per Cardiology: Management per primary service and urology, currently on antibiotics. Qualifiers: Sepsis type: sepsis due to unspecified organism Qualified Code(s): A41.9 - Sepsis, unspecified organism (3) Acute renal insufficiency Current Visit: Yes Status: Acute Per Cardiology: Currently with apparent GEORGINA on CK D stage IIIa. (4) Atrial fibrillation with RVR Current Visit: No Status: Acute Per Cardiology: Apparent new onset A. fib with RVR in setting of urosepsis and chronic lung disease. Currently sinus rhythm the 80s; systolic blood pressure stable in the 130s. We will convert to Cardizem CD 120 mg by mouth daily. We will discontinue when necessary beta sheron. We will discontinue ARB for now. Titrate CCB PRN. Echo pending. Reviewed and discussed with Dr. Storey, assuming no significant findings on echo, cardiology will sign off. Reconsult as needed, follow-up arranged. Regarding long-term anticoagulation, patient taking aspirin and Plavix as outpatient. [id number] = 3. Currently on Lovenox. Hemoglobin has dropped from 13.8-10.3. Denies any active bleeding or blood loss. Patient reports a fall 3- 4 days ago-- due to weakness, mechanical in nature. Reports a fall about one month ago. Reports at least 4 falls in the past one year. Unfortunately, do not recommend Coumadin or DOACs. Recommend resuming Plavix and aspirin for long-term anticoagulation. Patient aware of increased stroke risk. (5) Elevated troponin Current Visit: No Status: Acute Per Cardiology: Chest pain free-- reported mild chest discomfort with A. fib with RVR. Troponins flat and adynamic of 0.042 and then 0.07 in setting of urosepsis and chronic pulmonary disease. Echo pending-- will await results. Suspect type II demand ischemia, no cardiac rehabilitation consult warranted at this time. Discussion w patient/family: The assessment and plan as outlined above was discussed with the patient who expressed understanding and agreement. All questions were answered. Thank you for involving us in the care of your patient. Please call with any questions. History of Present Illness Consult date: 08/07/18 Requesting physician: Ilir Frederick Consult reason: Afib Chief complaint: Nausea History of present illness: Previous medical records reviewed: "Pt admitted earlier for urosepsis and had first known episode of RVR. Converted to sinus with diltiazem drip which was stopped due to hypotension. Pt has hx of SVT. Unclear if metoprolol was for this or HTN. No DM. No stroke or IA/PVD. [id number] score is 2 to 3. No hx of GIB. D/W pt and his family, agreeable to AC. Start with lovenox. If no bleeding issues may swith to Apixaban". Cardiology consult for apparent new onset A. fib in setting of urosepsis. Of note, patient is DNR Comfort Care arrest, DNI. Patient seen with no family at bedside. He reports he lives at home with his . Prior to admission he denied any chest pain symptoms. He did report some chest tightness with rapid heart rate during hospital stay. Currently chest pain-free. Reports nausea this morning. Denies any vomiting or diarrhea. Denies any current fever or chills. Denies any pain or burning with urination. He does report fell a few days ago due to weakness. He does report a fall about one month ago. He does report he is fallen at least 4 times in the past one year. He denies any active bleeding or blood loss. Denies any past history of atrial fib ablation. Denies any past history of CAD. Reports taking aspirin and Plavix at home. Past Med Surg Social Fam HX - Past Medical History Attestation: Yes The following information was validated with the patient. 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 TURP - Social History Smoking Status: Former smoker Smokeless Tobacco Status: No Alcohol use: none Drug use: none - Family History Father Hx Family Cancer: Yes Medications and Allergies Clopidogrel [Plavix] 75 mg PO DAILY 07/03/18 [History] Ipratropium [Atrovent Inhaler] 2 puff IH Q4H PRN 07/03/18 [History] Losartan [Cozaar] 25 mg PO DAILY 07/03/18 [History] Memantine [Namenda] 10 mg PO BID 07/03/18 [History] Metoprolol [Lopressor] 25 mg PO QAM PRN MDD 2 TABS PER 24H 07/03/18 [History] Quetiapine Fumarate [Seroquel] 50 mg PO HS 07/03/18 [History] Tamsulosin [Flomax] 0.4 mg PO DAILY 07/03/18 [History] clonazePAM [Clonazepam] 0.5 mg PO DAILY PRN 07/03/18 [History] Aspirin [Lo-Dose Aspirin EC] 81 mg PO HS 08/05/18 [History] Loratadine [Allergy Relief] 10 mg PO DAILY PRN 08/05/18 [History] Tiotropium [Spiriva] 1 puff IH DAILY 08/05/18 [History] dilTIAZem HCl [Diltiazem 24Hr ER] 120 mg PO DAILY 08/05/18 [History] Allergy/AdvReac Type Severity Reaction Status Date / Time azithromycin [From Zithromax] Allergy Mild Hives Verified 07/25/18 09:23 fluticasone [From Flonase] AdvReac See Verified 08/05/18 22:59 Comments gabapentin AdvReac Headache Verified 08/05/18 22:59 All Systems Review: The remainder of the systems were reviewed and are negative - Cardiovascular Cardiovascular: as per HPI, chest pain at rest, rapid heart rate - Gastrointestinal Gastrointestinal: nausea Physical Examination Vital Signs, Last 4 Hours Temp Pulse Resp BP Pulse Ox 08/07/18 07:49 16 91 08/07/18 07:22 99.2 F 101 19 139/67 92 General: Conversant, No Apparent Distress HEENT: Atraumatic, Normocephaly, Mucus Membranes Moist Neck: No JVD, Normal carotid pulses Cardiac: Reg Rate and Rhythm, Normal S1 and S2, No Murmur Lungs: Other (Expiratory wheezes noted, diminished breath sounds throughout, on chronic home oxygen, chest expansion is bilateral symmetrical) Neuro: Alert and responsive, No focal deficits noted Abdomen: Soft, Non-Tender Skin: No rashes noted on visualized skin Musculoskeletal: No Chest Wall Tenderness Extremities: No Clubbing, No Cyanosis, No Edema, Normal Pulses Results 08/07/18 06:15 08/07/18 06:15 Lab Results Laboratory Tests 12/14/17 08/05/18 08/05/18 12:50 17:25 17:25 WBC 15.9 H Hgb 13.8 Hct 41.7 Plt Count Creatinine Est GFR (Non-Af Amer) Magnesium 1.8 AST 20 ALT 18 Troponin I 0.04 H* TSH 2.303 08/06/18 08/06/18 08/06/18 01:26 05:45 05:45 WBC 19.5 H Hgb Hct Plt Count Creatinine Est GFR (Non-Af Amer) Magnesium AST ALT Troponin I 0.04 H* 0.07 H* TSH 08/07/18 08/07/18 06:15 06:15 WBC 14.7 H Hgb 10.3 L Hct 33.0 L Plt Count 189 Creatinine 1.54 H Est GFR (Non-Af Amer) 43 L Magnesium AST ALT Troponin I TSH ITS Impressions Chest X-Ray 08/05/18 17:21 IMPRESSION: Chronic parenchymal lung disease. 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 No definite acute process is demonstrated D/ / Yazan Walsh MD / Yazan Walsh MD Interpreting Provider: Yazan Walsh MD Abdomen/Pelvis CT 08/05/18 17:28 IMPRESSION: The wall of the urinary bladder is irregularly thickened and there is mild perivesical fat stranding. While the bladder wall thickening may represent hypertrophy from outlet obstruction in this patient with prostatomegaly, cystitis and tumor are not excluded. Correlation with cystoscopy recommended. There is new right hydronephrosis and hydroureter extending to the urinary bladder with no evidence of structure in calculus. Obstructing stricture or mass at the UVJ must be considered and follow-up cystoscopy with retrograde study may be helpful. Stable findings at the lung bases as above in this patient with history of silicosis and progressive massive fibrosis. D/ / Abdoulaye Billy MD / Abdoulaye Billy MD Interpreting Provider: Abdoulaye Billy MD Head CT 08/05/18 17:28 IMPRESSION: No acute intracranial abnormality. D/ / Abdoulaye Billy MD / Abdoulaye Billy MD Interpreting Provider: Abdoulaye Billy MD Intake & Output 08/04/18 08/05/18 08/06/18 08/07/18 23:59 23:59 23:59 23:59 Intake Total 600 / 600 4805 / 4805 1100 / 1100 Output Total 100 / 100 2400 / 2400 2450 / 2450 Balance 500 / 500 2405 / 2405 -1350 / -1350 Weight 68.2 kg 67.9 kg 68.3 kg Active Medications Aspirin (Aspirin Ec) 81 mg PO HS MICHAEL Stop: 02/04/19 23:46 Last Admin: 08/06/18 20:44 Dose: 81 mg Clonazepam (Klonopin) 0.5 mg PO DAILY PRN PRN Reason: Anxiety Stop: 02/04/19 23:53 Last Admin: 08/07/18 02:52 Dose: 0.5 mg Diltiazem HCl (Cardizem) 45 mg PO Q6HR MICHAEL Stop: 02/05/19 18:01 Last Admin: 08/07/18 05:07 Dose: 45 mg Enoxaparin Sodium (Lovenox) 70 mg 1 mg/kg (70 mg) SQ Q12HR MICHAEL; Protocol Stop: 02/05/19 18:01 Last Admin: 08/07/18 05:07 Dose: 70 mg Sodium Chloride (0.9 % Sodium Chloride) 1,000 mls @ 125 mls/hr IVC .Q8H MICHAEL Stop: 02/04/19 17:31 Last Admin: 08/07/18 05:06 Dose: 125 mls/hr Piperacillin Sod/Tazobactam (Sod 3.375 gm/ Sodium Chloride) 100 mls @ 25 mls/hr IVPB Q8HR MICHAEL Stop: 02/05/19 08:01 Last Admin: 08/07/18 08:57 Dose: 25 mls/hr Ipratropium [place] (Atrovent Neb) 0.5 mg IH [id number] [facility] Stop: 02/05/19 04:46 Last Admin: 08/07/18 07:44 Dose: 0.5 mg Losartan Potassium (Cozaar) 25 mg PO DAILY [facility]; Protocol Stop: 02/05/19 09:01 Last Admin: 08/06/18 08:28 Dose: Not Given Memantine (Namenda) 10 mg PO BID [facility] Stop: 02/04/19 23:46 Last Admin: 08/07/18 08:56 Dose: 10 mg Metoprolol Tartrate (Lopressor) 25 mg PO QAM PRN PRN Reason: SEE NOTE Stop: 02/04/19 23:53 Last Admin: 08/06/18 12:59 Dose: 25 mg Naloxone HCl (Narcan) 0.4 mg IVP Q2MIN PRN PRN Reason: SEE COMMENTS Stop: 02/05/19 01:43 Quetiapine Fumarate (Seroquel) 50 mg PO HS [facility] Stop: 02/04/19 23:46 Last Admin: 08/06/18 20:43 Dose: 50 mg Tamsulosin HCl (Flomax) 0.4 mg PO HS [facility]; Protocol Stop: 02/05/19 21:01 Last Admin: 08/06/18 20:43 Dose: Not Given - Imaging and Cardiology Echo: pending - EKG Interpretation EKG results cardiology: personally reviewed (A. fib with RVR in the 140s), other (Currently sinus rhythm in the 80s on telemetry) Consult Discharge Plan - Plan Referrals: Kiran Jacobo MD [Primary Care Provider] - <Becky Storey - Last Filed: 08/07/18 11:16> Date of Encounter: 08/07/18 - Attending Attestation I examined this patient and my medical decision-making was reviewed with the PLASTICS PRODUCTION MACHINE OPERATOR. I agree with the documented findings, disposition and treatment plan as described. Mr. Fatima presents with urosepsis complicated by AFIB RVR now converted to normal sinus rhythm. Dysrhythmia appears new precipitated by acute infectiious process. Agree with calcium channel sheron. In regards to anticoagulation, presently he is not a good candidate due to frequent falls. Additionally, Hgb notably has decreased - will defer to primary team for management. He is on asa/plavix as outpatient for unclear reasons. Recommend continuing this combination. Troponins flat and adynamic not representing ACS. Preliminarily LVEF appears normal. If Echo returns ok, will plan on signing off. Please call with questions. Assessment and Plan Discussion w patient/family: The assessment and plan as outlined above was discussed with the patient and/or family members who expressed understanding and agreement. All questions were answered. Thank you for involving us in the care of your patient. Please call with any questions. History of Present Illness History of present illness: Mr. Fatima is a 88 year old male All Systems Review: The remainder of the systems were reviewed and are negative Physical Examination Vital Signs, Last 4 Hours Temp Pulse Resp BP Pulse Ox 08/07/18 07:49 16 91 08/07/18 07:22 99.2 F 101 19 139/67 92 Results 08/07/18 06:15 08/07/18 06:15 Lab Results 08/07/18 08/07/18 06:15 06:15 WBC 14.7 H Hgb 10.3 L Hct 33.0 L Plt Count 189 Sodium 137 Potassium 3.9 Chloride 109 H Carbon Dioxide 23 BUN 22 Creatinine 1.54 H Glucose 108 H Calcium 7.9 L
--- NOTE | 2018-08-07 09:46 | Internal Med Progress Note ---
<Samina Medina - Last Filed: 08/07/18 13:27> Hospitalist Progress Note - Encounter Date of Encounter: 08/07/18 - Exam Vitals: Temp Pulse Resp BP Pulse Ox 99.2 F 65 16 106/58 97 08/07/18 07:22 08/07/18 11:17 08/07/18 11:29 08/07/18 11:17 08/07/18 11:29 - Time Spent with Patient Total time spent is greater than 50% in coordination of care (as documented) at patient's floor/unit and/or counseling patient: Internal Medicine: Result - Labs CBC & Chem 7: 08/07/18 06:15 08/07/18 06:15 Labs: Short CBC 08/07/18 Range/Units 06:15 WBC 14.7 H (4.3-11.1) K/mcL Hgb 10.3 L (12.9-16.9) g/dL Hct 33.0 L (37.5-50.1) % Plt Count 189 (140-400) K/mcL Neutrophils # 10.3 H (1.6-8.9) K/mcL BMP 08/07/18 06:15 Sodium 137 Potassium 3.9 Chloride 109 H Carbon Dioxide 23 BUN 22 Creatinine 1.54 H Glucose 108 H Calcium 7.9 L Cardiac Enzymes 08/07/18 Range/Units 12:13 Troponin I 0.06 H* (< 0.04) ng/mL - Impressions Impressions Echocardiogram 08/07/18 09:00 Impressions: LVEF 60-65%. Mild left ventricular diastolic dysfunction. Normal right ventricular structure and function. Mild-moderate aortic regurgitation. Mild-moderately thickened/calcified mitral leaflets, rheumatic in appearance. Bordeline evidence for mitral stenosis. MG 3 mmHg at 94 bpm Mild tricuspid regurgitation. Mild pulmonary hypertension by TR gradient. Left Ventricular Wall Motion: Rest Echo Findings All wall segments showed normal motion. Findings: Study Quality * Technically adequate exam. ECG Findings * Sinus rhythm with PACs. Left Ventricle * LVEF 60-65%. * Normal LV chamber size. * LV wall thickness measurements could not be well obtained. * Mild left ventricular diastolic dysfunction. Right Ventricle * Normal right ventricular structure and function. Left Atrium * Moderately dilated left atrium. Right Atrium * Normal right atrial size. Aortic Valve * Trileaflet aortic valve. * No aortic stenosis. * Mild-moderate aortic regurgitation. Mitral Valve * No mitral regurgitation. * Mild-moderately thickened/calcified mitral leaflets, rheumatic in appearance. * Bordeline evidence for mitral stenosis. MG 3 mmHg at 94 bpm Tricuspid Valve * Not well visualized. * Mild tricuspid regurgitation. Pulmonic Valve * Pulmonic valve is not well visualized. * No pulmonic stenosis. * No pulmonic regurgitation. Pulmonary Artery * Pulmonary artery not well visualized. Aorta * Normally sized aortic root. * Proximal ascending thoracic aorta not well visualized. Pericardium * There is no pericardial effusion present. Interatrial Septum * Interatrial septum not well evaluated. IVC * The IVC is not well evaluated. Consult Discharge Plan - Plan Referrals: Kiran Jacobo MD [Primary Care Provider] - - Attending Attestation I examined this patient and my medical decision-making was reviewed with the Resident Physician Dr Whitten. I agree with the documented findings, disposition and treatment plan as described except to the extent set forth below. 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 He is admitted with sepsis 2/2 UTI, afib rvr, acute hypoxic resp failure awake in bed, no family present. He denies any fevers, chills, n/v, suprapubic tenderness or cva back pain. He only complains of heart racing at times. no associated cp, pressure or dizziness. He denies feeling sob gen- alert, awake,appears stated age eyes- pupils equal round, no conjunctival pallor cv- reg rate and irreg/irregrhythm, normal s1,s2, no murmurs appreciated, no le edema, no jvd lungs- normal resp effor ton o2 nc, no rhonci or wheezing, faint crackles, wet cough abd- soft, non tender, non distended, + bs neuro- AAOxperson, place UTI Suspected Bladder outlet obstruction Right hydronephrosis and hydroureter GEORGINA with bl creat about 1.2 -urology following, Iv zosyn awaiting cx results, no urgent intervention by uro required, cont flomax, will need to dc ivf to 75/hr as he has diastolic CHF and beginning to have crackles afib rvr, resolved- now rate controlled, cont cardizem, cards following, given hx of falls, hgb drop this admit agree with cards to stop aC previously started and cont with asa, plavix given risk vs benefit, echo reviewed, normal ef mild diastolic, persistent valvular disease, pulm htn Acute Hypoxic resp failure with increased o2 requirement from baseline copd hx Silicosis hx -nebs, inital CXR neg, will monitor for further changes, monitor for fluid overload as was on high rate fluids Anemia, hgb drop from 13.8 to 10.3 since admit--in last 24 hrs 10.8 to 10.3, had large blood on admitting UA, stop lovenox, cont to monitor, decrease IVF rate further diagnoses and treatment as documented by resident <Xuan Whitten - Last Filed: 08/07/18 18:22> Hospitalist Progress Note - Encounter Date of Encounter: 08/07/18 Time of Encounter: 09:46 - Subjective Interval History: Patient seen examined at bedside. He is alert and resting comfortably sitting on the side of bed. He denies any complaints at this time. He denies chest pain, shortness of breath, palpitations, abdominal pain, fever, chills, dysuria. - Exam Vitals: Temp Pulse Resp BP Pulse Ox 99.2 F 101 16 139/67 91 08/07/18 07:22 08/07/18 07:22 08/07/18 07:49 08/07/18 07:22 08/07/18 07:49 Exam: Gen.: Vitals noted. No acute distress. Alert HEENT: oropharynx clear, Normocephalic, atraumatic Neck: Supple. No adenopathy. Cardiac: irregular, no murmur, +S1/S2, no lower extremity edema Pulmonary: bilateral bases rales and rhonchi, equal chest expansion Abdomen: soft, nontender, Bowel sounds noted, no guarding Extremities: nontender calf, no cyanosis or clubbing Neuro: moves all extremities, no focal deficits Psych: Appropriate mood and behavior - Assessment and Plan (1) UTI (urinary tract infection) Current Visit: Yes Status: Acute Assessment and Plan: Urinalysis demonstrated urinary tract infection. Patient reported being treated 2 weeks ago for urinary tract infection. He follows with a urologist Dr. Fuentes in [place]. -urinalysis: > 300 protein, large blood, large leukocyte esterase, RBC 50-100, WBC TNTC -abdomen/pelvis CT demonstrating thickened urinary bladder wall with perivesical fat stranding, prostatomegaly. Correlation with cystoscopy recommended. New right hydronephrosis and hydroureter extending into urinary bladder. No calculus. -Urine culture growing GNR Plan: -continue Zosyn day 2 until urinary culture sensitivity results -urine culture sensitivity pending -continue Ellison catheter -urology was consulted and recommends continuing Ellison catheter at this time. No urgent need for cystoscopy or right ureteral stent placement. They recommend for the patient to follow up with his urologist upon discharge. (2) Atrial fibrillation with RVR Current Visit: No Status: Acute Assessment and Plan: Atrial fibrillation with RVR in setting of sepsis secondary to urinary tract infection and chronic lung disease of silicosis. Heart rate better controlled today patient denies chest pain [id number] = 3 TTE: LVEF 60-65%. Mild left ventricular diastolic dysfunction. Normal right ventricular structure and function. Mild-moderate aortic regurgitation. Mild-moderately thickened/calcified mitral leaflets, rheumatic in appearance. Bordeline evidence for mitral stenosis. MG 3 mmHg at 94 bpm Mild tricuspid regurgitation. Mild pulmonary hypertension by TR gradient. plan: -cardiology consulted and recommends that the patient the started on Cardizem CD 120mg daily. Cardiology recommends that he resumed his Plavix and aspirin for long-term anticoagulation instead of Lovenox or any other anticoagulant, despite the increased stroke risk since the patient has reported following a few days ago. He is a fall risk due to weakness and mechanical falls. This is been explained to the patient and he is agreeable. -Cardiology does not recommend any other cardiac testing at this time and will follow-up outpatient. -Continue Cardizem CD 120mg daily -Lovenox has been stopped -continue Plavix and aspirin (3) Acute respiratory failure with hypoxia Current Visit: No Status: Acute Assessment and Plan: Resolved. Patient initially presented with hypoxia with oxygen saturation in the 80s. Etiology is likely secondary to chronic lung disease of silicosis and atrial fibrillation. -chest x-ray demonstrating chronic parenchymal lung disease, likely silicosis with progressive massive fibrosis and upper lobes. Currently on 4 L oxygen at 92% Plan: -continue home inhalers and supplemental oxygen -no indication of fluid overload, will continue to monitor. (4) Sepsis Current Visit: Yes Status: Acute Assessment and Plan: Resolved. Sepsis secondary to urinary tract infection. On admission temperature 101.7, tachycardia 112, tachypnea 28, WBC 15.9, lactic acid 2.7. Normotensive. -WBC 14.7 (19.5), afebrile -lactic acid 2.7 > 3.6 > 1.1 -urinalysis: > 300 protein, large blood, large leukocyte esterase, RBC 50-100, WBC TNTC -chest x-ray demonstrating chronic parenchymal lung disease, likely silicosis with progressive massive fibrosis and upper lobes. -Head CT negative for acute intracranial abnormality -abdomen/pelvis CT demonstrating thickened urinary bladder wall with perivesical fat stranding, prostatomegaly. Correlation with cystoscopy recommended. New right hydronephrosis and hydroureter extending into urinary bladder. No calculus. -Urine culture growing GNR Plan: -patient is no longer meeting sepsis criteria other than elevated the WBC that is improving. -Continue IVF 75 -continue Zosyn day 2 -blood culture pending -urine culture sensitivity pending (5) Elevated troponin Current Visit: No Status: Acute Assessment and Plan: Elevated troponin most likely secondary to demand ischemia in setting of new atrial fibrillation. Troponin 0.06> 0.07 > 0.04 > 0.04 patient denies chest pain (6) Hyponatremia Current Visit: No Status: Acute Assessment and Plan: Resolved. 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 -Continue supplemental oxygen and duonebs (8) DVT prophylaxis Current Visit: Yes Status: Acute Assessment and Plan: Heparin sq - Time Spent with Patient Total time spent is greater than 50% in coordination of care (as documented) at patient's floor/unit and/or counseling patient: Internal Medicine: Result - Labs CBC & Chem 7: 08/07/18 06:15 08/07/18 06:15 Labs: Short CBC 08/07/18 Range/Units 06:15 WBC 14.7 H (4.3-11.1) K/mcL Hgb 10.3 L (12.9-16.9) g/dL Hct 33.0 L (37.5-50.1) % Plt Count 189 (140-400) K/mcL Neutrophils # 10.3 H (1.6-8.9) K/mcL BMP 08/07/18 06:15 Sodium 137 Potassium 3.9 Chloride 109 H Carbon Dioxide 23 BUN 22 Creatinine 1.54 H Glucose 108 H Calcium 7.9 L <Xuan Whitten - Last Filed: 08/07/18 18:22> (1) UTI (urinary tract infection) Qualifiers: Urinary tract infection type: acute cystitis Hematuria presence: with hematuria Qualified Code(s): N30.01 - Acute cystitis with hematuria (4) Sepsis Qualifiers: Sepsis type: sepsis due to unspecified organism Qualified Code(s): A41.9 - Sepsis, unspecified organism
[2018-08-07] MEDS: Diltiazem CD (24hr) 120 MG CAPSULE PO SCH (11:32)
--- NOTE | 2018-08-07 13:49 | Event Note ---
Date of Encounter: 08/07/18 Time of Encounter: 13:49 - Cardiology Event Note Echo images reviewed. No further cardiac testing warranted at this time. Recommend outpatient follow up. Will sign off. Please call with questions.
[2018-08-07] MEDS: Aspirin Enteric Coated 81 MG Tablet PO SCH (20:22)
[2018-08-07] MEDS ORDERED: *HR* Metoprolol 5 MG/5 ML VIAL IVP STA (23:55)
[2018-08-08] MEDS ORDERED: methylPREDNISolone 125 MG/2 ML VIAL IVP STA (00:16)
[2018-08-08] MEDS: Piperacillin/Tazobactam 3.375 GM in 0.9 % Sodium Chloride Mini Bag 100 ML IVPB SCH ×2 (00:19→08:42)
[2018-08-08] MEDS ORDERED: methylPREDNISolone 125 MG/2 ML VIAL ONE (00:22)
--- NOTE | 2018-08-08 00:28 | Event Note ---
Date of Encounter: 08/07/18 Time of Encounter: 23:31 Notified by nurse of patient complaining of chest tightness and increased shortness of breath. Assessed patient at bedside, states he had chest tightness with his shortness of breath he has been having while in the hospital but it seems to be getting worse. EKG shows atrial flutter. Discussed with Dr Carver at bedside. Breathing treatment administered, one dose Solumedrol and Lopressor ordered, as well as troponin.
[2018-08-08] MEDS ORDERED: Menthol 9.1 MG LOZENGE PO ONE (02:08)
[2018-08-08] MEDS: Ipratropium Neb 0.5 MG NEBULIZER IH SCH ×6 (04:05→23:13)
[2018-08-08] MEDS: 0.9 % Sodium Chloride 1,000 ML IVC SCH (04:35)
[2018-08-08] MEDS: *HR* Heparin 5,000 UNIT/ML VIAL SQ SCH ×2 (04:35→18:06)
[2018-08-08 06:01] LABS: Basophils % 0.2 %; Eosinophils % 0.1 %; Hematocrit 36.7 % (37.5-50.1); Hemoglobin 11.7 g/dL (12.9-16.9); Immature Granulocytes % 0.7 % (0-4); Lymphocytes # 0.9 K/mcL (0.6-4.6); Mean Corpuscular HGB Conc 31.9 g/dL (31.6-35.5); Mean Corpuscular Hemoglobin 30.4 pg (28.0-33.3); Mean Corpuscular Volume 95.3 fL (83.0-100.0); Mean Platelet Volume 10.5 fL (9.4-12.4); Monocytes # 0.2 K/mcL (0.0-1.3); Monocytes % 2.5 %; Neutrophils # 7.2 K/mcL (1.6-8.9); Platelet Count 190 K/mcL (140-400); Red Blood Count 3.85 M/mcL (4.19-5.50); Red Cell Distribution Width 13.8 % (11.5-14.5); Segmented Neutrophils % 85.5 %
[2018-08-08 06:22] LABS: BUN/Creatinine Ratio 20 (6-26); Blood Urea Nitrogen 25 mg/dL (8-23); Calcium 8.3 mg/dL (8.6-10.3); Carbon Dioxide 22 mEq/L (23-29); Chloride 109 mEq/L (98-107); Glucose 209 mg/dL (70-105); Osmolality,Calculated 297 (280-300); Potassium 4.1 mEq/L (3.5-5.1); Sodium 138 mEq/L (136-145); eGFR For Non-African Americans 55 (> 60)
[2018-08-08] MEDS: Diltiazem CD (24hr) 120 MG CAPSULE PO SCH (08:42)
[2018-08-08] MEDS ORDERED: *HR* Metoprolol 5 MG/5 ML VIAL IVP PRN (08:43)
[2018-08-08] MEDS: Diltiazem SR (12hr) 60 MG CAPSULE PO SCH ×2 (09:48→20:22)
--- NOTE | 2018-08-08 09:58 | Internal Med Progress Note ---
<Samina Medina - Last Filed: 08/08/18 13:23> Hospitalist Progress Note - Encounter Date of Encounter: 08/08/18 - Exam Vitals: Temp Pulse Resp BP Pulse Ox 97.1 F L 87 18 116/67 92 08/08/18 10:55 08/08/18 10:55 08/08/18 11:09 08/08/18 10:55 08/08/18 11:09 - Assessment and Plan (1) Atrial fibrillation with RVR Current Visit: No Status: Acute (2) Sepsis Current Visit: Yes Status: Acute (3) Acute respiratory failure with hypoxia Current Visit: No Status: Acute (4) Elevated troponin Current Visit: No Status: Acute (5) Hyponatremia Current Visit: No Status: Acute (6) UTI (urinary tract infection) Current Visit: Yes Status: Acute (7) DVT prophylaxis Current Visit: Yes Status: Acute (8) Silicosis Current Visit: Yes Status: Acute - Time Spent with Patient Total time spent is greater than 50% in coordination of care (as documented) at patient's floor/unit and/or counseling patient: Internal Medicine: Result - Labs CBC & Chem 7: 08/08/18 05:39 08/08/18 05:39 Labs: Short CBC 08/08/18 Range/Units 05:39 WBC 8.4 (4.3-11.1) K/mcL Hgb 11.7 L (12.9-16.9) g/dL Hct 36.7 L (37.5-50.1) % Plt Count 190 (140-400) K/mcL Neutrophils # 7.2 (1.6-8.9) K/mcL BMP 08/08/18 05:39 Sodium 138 Potassium 4.1 Chloride 109 H Carbon Dioxide 22 L BUN 25 H Creatinine 1.24 Glucose 209 H Calcium 8.3 L Cardiac Enzymes 08/08/18 08/08/18 08/08/18 Range/Units 00:16 05:39 11:57 Troponin I 0.04 H* 0.04 H* < 0.03 (< 0.04) ng/mL - Impressions Impressions Echocardiogram 08/07/18 09:00 Impressions: LVEF 60-65%. Mild left ventricular diastolic dysfunction. Normal right ventricular structure and function. Mild-moderate aortic regurgitation. Mild-moderately thickened/calcified mitral leaflets, rheumatic in appearance. Bordeline evidence for mitral stenosis. MG 3 mmHg at 94 bpm Mild tricuspid regurgitation. Mild pulmonary hypertension by TR gradient. Left Ventricular Wall Motion: Rest Echo Findings All wall segments showed normal motion. Findings: Study Quality * Technically adequate exam. ECG Findings * Sinus rhythm with PACs. Left Ventricle * LVEF 60-65%. * Normal LV chamber size. * LV wall thickness measurements could not be well obtained. * Mild left ventricular diastolic dysfunction. Right Ventricle * Normal right ventricular structure and function. Left Atrium * Moderately dilated left atrium. Right Atrium * Normal right atrial size. Aortic Valve * Trileaflet aortic valve. * No aortic stenosis. * Mild-moderate aortic regurgitation. Mitral Valve * No mitral regurgitation. * Mild-moderately thickened/calcified mitral leaflets, rheumatic in appearance. * Bordeline evidence for mitral stenosis. MG 3 mmHg at 94 bpm Tricuspid Valve * Not well visualized. * Mild tricuspid regurgitation. Pulmonic Valve * Pulmonic valve is not well visualized. * No pulmonic stenosis. * No pulmonic regurgitation. Pulmonary Artery * Pulmonary artery not well visualized. Aorta * Normally sized aortic root. * Proximal ascending thoracic aorta not well visualized. Pericardium * There is no pericardial effusion present. Interatrial Septum * Interatrial septum not well evaluated. IVC * The IVC is not well evaluated. Chest X-Ray 08/08/18 07:00 IMPRESSION: 1. Chronic coarsened appearance of interstitial lung markings bilaterally which appear similar compared to the previous examination and notable opacities at left lung base. Short-term follow-up could be helpful for further evaluation. 2. Left upper lobe nodule/mass as well as right upper lobe nodule/mass appear similar when correlated with prior CT from 05/02 2015 possibly representing silicosis and areas of fibrosis. D/ / Demarco Dobson / Demarco Dobson Interpreting Provider: Demarco Dobson Consult Discharge Plan - Plan Referrals: Kiran Jacobo MD [Primary Care Provider] - - Attending Attestation I examined this patient and my medical decision-making was reviewed with the Resident Physician Dr Cannon. I agree with the documented findings, disposition and treatment plan as described except to the extent set forth below. 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 He is admitted with sepsis 2/2 UTI, afib rvr, acute hypoxic resp failure awake in bed, tele showing hr 120s and he has + palpitations and sensation that he "can't catch my breath". No chest mosher. Similar episode last night. AM meds have been administered and addl cardizem dosing as well as breathing treatment about to be given. He is comofrtable appearing and has no resp distress. He denies bladder pain, pain elsewhere, fevers or chills. gen- alert, awake,appears stated age eyes- pupils equal round, no conjunctival pallor cv- tachy rate and irreg/irregrhythm, normal s1,s2, no murmurs appreciated, no le edema, no jvd lungs- normal resp effort on o2 nc, no accessory muscle use, no rhonci or wheezing, no crackles appreciated in bases abd- soft, non tender, non distended, + bs gu- ackerman cath with clear yellow urine neuro- AAOxperson, place, situation UTI Suspected Bladder outlet obstruction Right hydronephrosis and hydroureter GEORGINA with bl creat about 1.2, resolved -urology following, Iv zosyn, cx resulted and pansensitive, de escalte abx (avoid nephro toxic abcx), no urgent intervention by uro required, cont flomax, may dc ivfs afib rvr, with intermittent bursts-increase cardizem, cards signed off, given hx of falls, hgb drop this admit agree with cards to stop AC previously started and cont with asa, plavix given risk vs benefit Acute Hypoxic resp failure with increased o2 requirement from baseline copd hx Silicosis hx -nebs, inital CXR neg, will monitor for further changes, monitor for fluid overload as was on high rate fluids Anemia, hgb drop from 13.8 to 10.3 since admit--uptrended to 11s, had large blood on admitting UA, may add back pharm vte ppx and monitor further diagnoses and treatment as documented by resident pt/ot jerzy when hr better controlled <Yasmany Cannon - Last Filed: 08/08/18 16:17> Hospitalist Progress Note - Encounter Date of Encounter: 08/08/18 Time of Encounter: 09:56 - Subjective Interval History: Event note overnight indicates patient had worsening shortness of breath. EKG demonstrated Atrial Flutter and Troponin was 0.04 unchanged from previous. This morning rate is better controlled and the patient is still complaining of shortness of breath. Denies chest pain. 13:30 - shortness of breath baseline, heart in regular rate - Exam Vitals: Temp Pulse Resp BP Pulse Ox 98.3 F 115 18 121/69 94 08/08/18 06:34 08/08/18 06:34 08/08/18 07:26 08/08/18 06:34 08/08/18 07:26 Exam: Gen.: Vitals noted. No acute distress. Alert HEENT: oropharynx clear, Normocephalic, atraumatic Neck: Supple. No adenopathy. Cardiac: irregular rhythm, no murmur, regular rate, +S1/S2, no lower extremity edema Pulmonary: bilateral bases rales and rhonchi, equal chest expansion, no wheeze Abdomen: soft, nontender, Bowel sounds noted, no guarding Extremities: nontender calf, no cyanosis or clubbing Neuro: moves all extremities, no focal deficits Psych: Appropriate mood and behavior - Assessment and Plan (1) Atrial fibrillation with RVR Current Visit: No Status: Acute Assessment and Plan: Atrial fibrillation with RVR in setting of sepsis secondary to urinary tract infection and chronic lung disease of silicosis. [id number] = 3 TTE: LVEF 60-65%. Mild left ventricular diastolic dysfunction. Normal right ventricular structure and function. Mild-moderate aortic regurgitation. Mild-moderately thickened/calcified mitral leaflets, rheumatic in appearance. Bordeline evidence for mitral stenosis. MG 3 mmHg at 94 bpm Mild tricuspid regurgitation. Mild pulmonary hypertension by TR gradient. plan: -cardiology consulted and recommended that the patient the started on Cardizem CD 120mg daily. Cardiology recommendsed that he resumed his Plavix and aspirin for long-term anticoagulation instead of Lovenox or any other anticoagulant, despite the increased stroke risk since the patient has reported falling. He is a fall risk due to weakness and mechanical falls. This has been explained to the patient and he is agreeable. -Cardiology does not recommend any other cardiac testing at this time and will follow-up outpatient. -Cardizem 120 daily increased to 180 daily due to repeated episodes of tachycardia -Lovenox has been stopped -continue Plavix and aspirin (2) Sepsis Current Visit: Yes Status: Resolved Assessment and Plan: Resolved. Sepsis secondary to urinary tract infection. On admission temperature 101.7, tachycardia 112, tachypnea 28, WBC 15.9, lactic acid 2.7. 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 -Head CT negative for acute intracranial abnormality -abdomen/pelvis CT demonstrating thickened urinary bladder wall with perivesical fat stranding, prostatomegaly. Correlation with cystoscopy recommended. New right hydronephrosis and hydroureter extending into urinary bladder. No calculus. -Urine culture growing GNR, kuhn-sensitive Plan: -patient is no longer meeting sepsis criteria, labs and vitals stable -Discontinue Zosyn day 3, Start Ciprofloxacin PO 250 BID, (Nitrofurantoin/Trimethoprim-Sulfamethoxazole were not considered due to GEORGINA) -blood culture pending (3) Acute respiratory failure with hypoxia Current Visit: No Status: Resolved Assessment and Plan: Resolved. Patient initially presented with hypoxia with oxygen saturation in the 80s. Etiology is likely secondary to chronic lung disease of silicosis and atrial fibrillation. -chest x-ray demonstrating chronic parenchymal lung disease, likely silicosis with progressive massive fibrosis and upper lobes. Currently on 4 L oxygen at 92% Plan: -continue home inhalers and supplemental oxygen -Xopenex Q4H added due to episode of shortness of breath, resolved -no indication of fluid overload, will continue to monitor. (4) Elevated troponin Current Visit: No Status: Resolved Assessment and Plan: Elevated troponin most likely secondary to demand ischemia in setting of new atrial fibrillation. Troponin 0.06> 0.07 > 0.04 > 0.04 patient denies chest pain 0.04 appears to be baseline (5) Hyponatremia Current Visit: No Status: Resolved Assessment and Plan: Resolved. Sodium 133 at admission continue to monitor (6) UTI (urinary tract infection) Current Visit: Yes Status: Acute Assessment and Plan: Urinalysis demonstrated urinary tract infection. Patient reported being treated 2 weeks ago for urinary tract infection. He follows with a urologist Dr. Fuentes in [place]. -urinalysis: > 300 protein, large blood, large leukocyte esterase, RBC 50-100, WBC TNTC -abdomen/pelvis CT demonstrating thickened urinary bladder wall with perivesical fat stranding, prostatomegaly. Correlation with cystoscopy recommended. New right hydronephrosis and hydroureter extending into urinary bladder. No calculus. -Urine culture growing GNR, pansensitive Plan: -discontinue Zosyn day 3, start Ciprofloxacin day 1 -continue Ackerman catheter -urology was consulted and recommends continuing Ackerman catheter at this time. No urgent need for cystoscopy or right ureteral stent placement. They recommend for the patient to follow up with his urologist upon discharge. 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 -Continue supplemental oxygen and duonebs, Xopenex - Time Spent with Patient Total time spent is greater than 50% in coordination of care (as documented) at patient's floor/unit and/or counseling patient: Internal Medicine: Result - Labs CBC & Chem 7: 08/08/18 05:39 08/08/18 05:39 Labs: Short CBC 08/08/18 Range/Units 05:39 WBC 8.4 (4.3-11.1) K/mcL Hgb 11.7 L (12.9-16.9) g/dL Hct 36.7 L (37.5-50.1) % Plt Count 190 (140-400) K/mcL Neutrophils # 7.2 (1.6-8.9) K/mcL BMP 08/08/18 05:39 Sodium 138 Potassium 4.1 Chloride 109 H Carbon Dioxide 22 L BUN 25 H Creatinine 1.24 Glucose 209 H Calcium 8.3 L Cardiac Enzymes 08/07/18 08/08/18 08/08/18 Range/Units 12:13 00:16 05:39 Troponin I 0.06 H* 0.04 H* 0.04 H* (< 0.04) ng/mL - Impressions Impressions Echocardiogram 08/07/18 09:00 Impressions: LVEF 60-65%. Mild left ventricular diastolic dysfunction. Normal right ventricular structure and function. Mild-moderate aortic regurgitation. Mild-moderately thickened/calcified mitral leaflets, rheumatic in appearance. Bordeline evidence for mitral stenosis. MG 3 mmHg at 94 bpm Mild tricuspid regurgitation. Mild pulmonary hypertension by TR gradient. Left Ventricular Wall Motion: Rest Echo Findings All wall segments showed normal motion. Findings: Study Quality * Technically adequate exam. ECG Findings * Sinus rhythm with PACs. Left Ventricle * LVEF 60-65%. * Normal LV chamber size. * LV wall thickness measurements could not be well obtained. * Mild left ventricular diastolic dysfunction. Right Ventricle * Normal right ventricular structure and function. Left Atrium * Moderately dilated left atrium. Right Atrium * Normal right atrial size. Aortic Valve * Trileaflet aortic valve. * No aortic stenosis. * Mild-moderate aortic regurgitation. Mitral Valve * No mitral regurgitation. * Mild-moderately thickened/calcified mitral leaflets, rheumatic in appearance. * Bordeline evidence for mitral stenosis. MG 3 mmHg at 94 bpm Tricuspid Valve * Not well visualized. * Mild tricuspid regurgitation. Pulmonic Valve * Pulmonic valve is not well visualized. * No pulmonic stenosis. * No pulmonic regurgitation. Pulmonary Artery * Pulmonary artery not well visualized. Aorta * Normally sized aortic root. * Proximal ascending thoracic aorta not well visualized. Pericardium * There is no pericardial effusion present. Interatrial Septum * Interatrial septum not well evaluated. IVC * The IVC is not well evaluated. Chest X-Ray 08/08/18 07:00 IMPRESSION: 1. Chronic coarsened appearance of interstitial lung markings bilaterally which appear similar compared to the previous examination and notable opacities at left lung base. Short-term follow-up could be helpful for further evaluation. 2. Left upper lobe nodule/mass as well as right upper lobe nodule/mass appear similar when correlated with prior CT from 05/02 2015 possibly representing silicosis and areas of fibrosis. D/ / Demarco Dobson / Demarco Dobson Interpreting Provider: Demarco Dobson <Samina Medina - Last Filed: 08/08/18 13:23> (2) Sepsis Qualifiers: Sepsis type: sepsis due to unspecified organism Qualified Code(s): A41.9 - Sepsis, unspecified organism (6) UTI (urinary tract infection) Qualifiers: Urinary tract infection type: acute cystitis Hematuria presence: with hematuria Qualified Code(s): N30.01 - Acute cystitis with hematuria <Yasmany Cannon - Last Filed: 08/08/18 16:17> (2) Sepsis Qualifiers: Sepsis type: sepsis due to unspecified organism Qualified Code(s): A41.9 - Sepsis, unspecified organism (6) UTI (urinary tract infection) Qualifiers: Urinary tract infection type: acute cystitis Hematuria presence: with hematuria Qualified Code(s): N30.01 - Acute cystitis with hematuria
[2018-08-08] MEDS ORDERED: Levalbuterol Neb 0.63 MG/3 ML IH SCH (10:00)
--- NOTE | 2018-08-08 14:33 | Electrocardiograph Report ---
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
--- NOTE | 2018-08-08 14:35 | Electrocardiograph Report ---
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
[2018-08-08] MEDS: Levalbuterol Neb 0.63 MG/3 ML IH SCH ×3 (16:12→23:13)
--- NOTE | 2018-08-08 16:41 | Electrocardiograph Report ---
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
--- NOTE | 2018-08-08 17:43 | Electrocardiograph Report ---
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
[2018-08-08] MEDS: Aspirin Enteric Coated 81 MG Tablet PO SCH (20:22)
[2018-08-09] MEDS: clonazePAM 0.5 MG TABLET PO PRN ×2 (01:04→22:24)
[2018-08-09] MEDS: Levalbuterol Neb 0.63 MG/3 ML IH SCH ×6 (03:50→23:43)
[2018-08-09] MEDS: Ipratropium Neb 0.5 MG NEBULIZER IH SCH ×6 (03:50→23:43)
[2018-08-09 05:49] LABS: Basophils % 0.1 %; Hematocrit 34.7 % (37.5-50.1); Hemoglobin 11.3 g/dL (12.9-16.9); Lymphocytes # 1.2 K/mcL (0.6-4.6); Lymphocytes % 10.3 %; Mean Corpuscular HGB Conc 32.6 g/dL (31.6-35.5); Mean Corpuscular Hemoglobin 30.8 pg (28.0-33.3); Mean Corpuscular Volume 94.6 fL (83.0-100.0); Mean Platelet Volume 10.6 fL (9.4-12.4); Monocytes # 0.9 K/mcL (0.0-1.3); Monocytes % 7.7 %; Neutrophils # 9.7 K/mcL (1.6-8.9); Platelet Count 215 K/mcL (140-400); Red Blood Count 3.67 M/mcL (4.19-5.50); Red Cell Distribution Width 13.6 % (11.5-14.5); Segmented Neutrophils % 80.9 %
[2018-08-09 06:08] LABS: BUN/Creatinine Ratio 28 (6-26); Blood Urea Nitrogen 30 mg/dL (8-23); Calcium 8.5 mg/dL (8.6-10.3); Carbon Dioxide 25 mEq/L (23-29); Chloride 108 mEq/L (98-107); Glucose 167 mg/dL (70-105); Osmolality,Calculated 298 (280-300); Potassium 3.7 mEq/L (3.5-5.1); Sodium 139 mEq/L (136-145); eGFR For Non-African Americans > 60 (> 60)
[2018-08-09] MEDS: *HR* Heparin 5,000 UNIT/ML VIAL SQ SCH ×2 (06:24→16:58)
[2018-08-09] MEDS: Diltiazem CD (24hr) 180 MG CAPSULE PO SCH (07:55)
--- NOTE | 2018-08-09 09:11 | Internal Med Progress Note ---
<CannonYasmany Shruti - Last Filed: 08/09/18 16:25> Hospitalist Progress Note - Encounter Date of Encounter: 08/09/18 Time of Encounter: 09:09 - Subjective Interval History: Patient continues to have shortness of breath this AM and overnight. Heart rate is controlled. Patient received 1 dose solumedrol last night for shortness of breath - accounts for increased white count, no fever. I believe this patients shortness of breath is related to tachycardia not respiratory etiology. Steroids are likely to make it worse. when heart rate is normal he is asymptomatic. We are still attempting to keep patient in normal rate so he can be assessed by PT before discharge. - Exam Vitals: Temp Pulse Resp BP Pulse Ox 97.6 F 78 16 158/77 94 08/09/18 07:31 08/09/18 07:31 08/09/18 07:53 08/09/18 07:31 08/09/18 07:53 Exam: Gen.: Vitals noted. No acute distress. Alert HEENT: oropharynx clear, Normocephalic, atraumatic Neck: Supple. No adenopathy. Cardiac: irregular rhythm, no murmur, tachycardic rate, +S1/S2, no lower extremity edema Pulmonary: scattered wheeze, no rales or rhonchi, diminished breath sounds Abdomen: soft, nontender, Bowel sounds noted, no guarding Extremities: nontender calf, no cyanosis or clubbing Neuro: moves all extremities, no focal deficits Psych: Appropriate mood and behavior - Assessment and Plan (1) Atrial fibrillation with RVR Current Visit: Yes Status: Acute Assessment and Plan: Atrial fibrillation with RVR in setting of sepsis secondary to urinary tract infection and chronic lung disease of silicosis. [id number] = 3 TTE: LVEF 60-65%. Mild left ventricular diastolic dysfunction. Normal right ventricular structure and function. Mild-moderate aortic regurgitation. Mild-moderately thickened/calcified mitral leaflets, rheumatic in appearance. Bordeline evidence for mitral stenosis. MG 3 mmHg at 94 bpm Mild tricuspid regurgitation. Mild pulmonary hypertension by TR gradient. cardiology consulted and recommended that the patient the started on Cardizem CD 120mg daily. Cardiology recommendsed that he resumed his Plavix and aspirin for long-term anticoagulation instead of Lovenox or any other anticoagulant, despite the increased stroke risk since the patient has reported falling. He is a fall risk due to weakness and mechanical falls. This has been explained to the patient and he is agreeable. Cardiology does not recommend any other cardiac testing at this time and will follow-up outpatient. plan -continue cardizem 180 daily -Lovenox has been stopped -continue Plavix and aspirin -patient continuing to have episodes of RVR, will continue to monitor (2) Sepsis Current Visit: Yes Status: Resolved Assessment and Plan: Resolved. Sepsis secondary to urinary tract infection. On admission temperature 101.7, tachycardia 112, tachypnea 28, WBC 15.9, lactic acid 2.7. 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 -Head CT negative for acute intracranial abnormality -abdomen/pelvis CT demonstrating thickened urinary bladder wall with perivesical fat stranding, prostatomegaly. Correlation with cystoscopy recommended. New right hydronephrosis and hydroureter extending into urinary bladder. No calculus. -Urine culture growing GNR, kuhn-sensitive Plan: -patient is no longer meeting sepsis criteria, labs and vitals stable - cntinue Ciprofloxacin PO 250 BID day 2, (Nitrofurantoin/Trimethoprim- Sulfamethoxazole were not considered due to GEORGINA) -blood culture pending (3) Acute respiratory failure with hypoxia Current Visit: No Status: Resolved Assessment and Plan: Resolved. Patient initially presented with hypoxia with oxygen saturation in the 80s. Etiology is likely secondary to chronic lung disease of silicosis and atrial fibrillation. -chest x-ray demonstrating chronic parenchymal lung disease, likely silicosis with progressive massive fibrosis and upper lobes. Currently on 4 L oxygen at 92% Plan: -continue home inhalers and supplemental oxygen -Xopenex Q4H added due to episode of shortness of breath, resolved -no indication of fluid overload, will continue to monitor. -episodes of shortness of breath related to tachycardia not respiratory involvement (4) Elevated troponin Current Visit: No Status: Resolved Assessment and Plan: Elevated troponin most likely secondary to demand ischemia in setting of new atrial fibrillation. Troponin 0.06> 0.07 > 0.04 > 0.04 patient denies chest pain 0.04 appears to be baseline trended and cardiac etiology ruled out (5) Hyponatremia Current Visit: No Status: Resolved Assessment and Plan: Resolved. Sodium 133 at admission continue to monitor (6) UTI (urinary tract infection) Current Visit: Yes Status: Acute Assessment and Plan: Urinalysis demonstrated urinary tract infection. Patient reported being treated 2 weeks ago for urinary tract infection. He follows with a urologist Dr. Fuentes in [place]. -urinalysis: > 300 protein, large blood, large leukocyte esterase, RBC 50-100, WBC TNTC -abdomen/pelvis CT demonstrating thickened urinary bladder wall with perivesical fat stranding, prostatomegaly. Correlation with cystoscopy recommended. New right hydronephrosis and hydroureter extending into urinary bladder. No calculus. -Urine culture growing GNR, pansensitive Plan: -continue Ciprofloxacin day 2 -continue Ellison catheter -urology was consulted and recommends continuing Ellison catheter at this time. No urgent need for cystoscopy or right ureteral stent placement. They recommend for the patient to follow up with his urologist upon discharge. 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 -Continue supplemental oxygen and duonebs, Xopenex - Time Spent with Patient Total time spent is greater than 50% in coordination of care (as documented) at patient's floor/unit and/or counseling patient: Internal Medicine: Result - Labs CBC & Chem 7: 08/09/18 05:23 08/09/18 05:23 Labs: Short CBC 08/09/18 Range/Units 05:23 WBC 12.0 H (4.3-11.1) K/mcL Hgb 11.3 L (12.9-16.9) g/dL Hct 34.7 L (37.5-50.1) % Plt Count 215 (140-400) K/mcL Neutrophils # 9.7 H (1.6-8.9) K/mcL BMP 08/09/18 05:23 Sodium 139 Potassium 3.7 Chloride 108 H Carbon Dioxide 25 BUN 30 H Creatinine 1.07 Glucose 167 H Calcium 8.5 L Cardiac Enzymes 08/08/18 Range/Units 11:57 Troponin I < 0.03 (< 0.04) ng/mL Consult Discharge Plan - Plan Referrals: Kiran Jacobo MD [Primary Care Provider] - <Delon Hernandez - Last Filed: 08/09/18 19:20> Hospitalist Progress Note - Encounter Date of Encounter: 08/09/18 - Exam Vitals: Temp Pulse Resp BP Pulse Ox 97.5 F L 74 16 157/72 98 08/09/18 11:59 08/09/18 16:06 08/09/18 16:06 08/09/18 16:06 08/09/18 16:06 - Assessment and Plan (1) Atrial fibrillation with RVR Current Visit: Yes Status: Acute (2) Sepsis Current Visit: Yes Status: Resolved (3) Acute respiratory failure with hypoxia Current Visit: No Status: Resolved (4) Elevated troponin Current Visit: No Status: Resolved (5) Hyponatremia Current Visit: No Status: Resolved (6) UTI (urinary tract infection) Current Visit: Yes Status: Acute (7) DVT prophylaxis Current Visit: Yes Status: Acute (8) Silicosis Current Visit: Yes Status: Chronic (9) Atrial fibrillation Current Visit: Yes Status: Chronic (10) Chronic respiratory failure with hypoxia Current Visit: Yes Status: Chronic - Time Spent with Patient Total time spent is greater than 50% in coordination of care (as documented) at patient's floor/unit and/or counseling patient: Internal Medicine: Result - Labs CBC & Chem 7: 08/09/18 05:23 08/09/18 05:23 Labs: Short CBC 08/09/18 Range/Units 05:23 WBC 12.0 H (4.3-11.1) K/mcL Hgb 11.3 L (12.9-16.9) g/dL Hct 34.7 L (37.5-50.1) % Plt Count 215 (140-400) K/mcL Neutrophils # 9.7 H (1.6-8.9) K/mcL BMP 08/09/18 05:23 Sodium 139 Potassium 3.7 Chloride 108 H Carbon Dioxide 25 BUN 30 H Creatinine 1.07 Glucose 167 H Calcium 8.5 L - Attending Attestation I examined this patient and my medical decision-making was reviewed with the Resident Physician on 08/09/18. I agree with the documented findings, disposition and treatment plan as described except to the extent set forth below. Mr Fatima is currently admitted for sepsis due to UTI and rapid atrial fibrillation. He remains moderate to high risk due to potential for worsening clinical status. Mr Fatima had some dyspnea this AM when heart rate was elevated. Improved when decreased rate. No fever or chills. No chest pain. To have PT/OT evals today. No GI issues. Exam alert Comfortable at this time Mucus membranes dry Heart irreg - not tachy now No wheeze now Abd soft No edema I/P 1. A fib - rate better controlled today. 2. Resp failure improved Further diagnoses and plan as above Discharge planning. <Yasmany Cannon - Last Filed: 08/09/18 16:25> (2) Sepsis Qualifiers: Sepsis type: sepsis due to unspecified organism Qualified Code(s): A41.9 - Sepsis, unspecified organism (6) UTI (urinary tract infection) Qualifiers: Urinary tract infection type: acute cystitis Hematuria presence: with hematuria Qualified Code(s): N30.01 - Acute cystitis with hematuria <Delon Hernandez - Last Filed: 08/09/18 19:20> (2) Sepsis Qualifiers: Sepsis type: sepsis due to unspecified organism Qualified Code(s): A41.9 - Sepsis, unspecified organism (6) UTI (urinary tract infection) Qualifiers: Urinary tract infection type: acute cystitis Hematuria presence: with hematuria Qualified Code(s): N30.01 - Acute cystitis with hematuria (9) Atrial fibrillation Qualifiers: Atrial fibrillation type: chronic Qualified Code(s): I48.2 - Chronic atrial fibrillation
--- NOTE | 2018-08-09 13:08 | Electrocardiograph Report ---
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
--- NOTE | 2018-08-09 16:36 | Electrocardiograph Report ---
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
[2018-08-09] MEDS: Aspirin Enteric Coated 81 MG Tablet PO SCH (21:00)
[2018-08-10] MEDS ORDERED: Melatonin 3 MG TABLET PO PRN (00:47)
[2018-08-10] MEDS: Levalbuterol Neb 0.63 MG/3 ML IH SCH ×4 (04:28→15:33)
[2018-08-10] MEDS: Ipratropium Neb 0.5 MG NEBULIZER IH SCH ×4 (04:28→15:33)
[2018-08-10 05:40] LABS: Basophils % 0.3 %; Eosinophils # 0.1 K/mcL (0.0-0.6); Eosinophils % 1.5 %; Hematocrit 35.2 % (37.5-50.1); Hemoglobin 11.4 g/dL (12.9-16.9); Immature Granulocytes % 0.8 % (0-4); Lymphocytes # 2.2 K/mcL (0.6-4.6); Lymphocytes % 24.1 %; Mean Corpuscular HGB Conc 32.4 g/dL (31.6-35.5); Mean Corpuscular Hemoglobin 30.5 pg (28.0-33.3); Mean Corpuscular Volume 94.1 fL (83.0-100.0); Mean Platelet Volume 10.6 fL (9.4-12.4); Monocytes % 11.2 %; Neutrophils # 5.7 K/mcL (1.6-8.9); Platelet Count 244 K/mcL (140-400); Red Blood Count 3.74 M/mcL (4.19-5.50); Red Cell Distribution Width 13.9 % (11.5-14.5); Segmented Neutrophils % 62.1 %
[2018-08-10 06:02] LABS: BUN/Creatinine Ratio 31 (6-26); Blood Urea Nitrogen 32 mg/dL (8-23); Calcium 8.6 mg/dL (8.6-10.3); Carbon Dioxide 29 mEq/L (23-29); Chloride 107 mEq/L (98-107); Glucose 116 mg/dL (70-105); Osmolality,Calculated 302 (280-300); Potassium 3.6 mEq/L (3.5-5.1); Sodium 142 mEq/L (136-145); Troponin I < 0.03 ng/mL (< 0.04); eGFR For Non-African Americans > 60 (> 60)
[2018-08-10] MEDS: *HR* Heparin 5,000 UNIT/ML VIAL SQ SCH (06:20)
[2018-08-10] MEDS: Diltiazem CD (24hr) 180 MG CAPSULE PO SCH (09:12)
--- NOTE | 2018-08-10 10:42 | Internal Med Progress Note ---
Hospitalist Progress Note - Encounter Date of Encounter: 08/10/18 Time of Encounter: 10:39 - Subjective Interval History: PT assessed yesterday and recommended SNF for 2 weeks rehab. I discussed with the patient and he was amenable. He had an episode of chest pain last night, stat EKG/Trop were without acute process. His heart rate has been controlled and he has not been having episodes of shortness of breath, I believe the two were related as opposed to a respiratory etiology. Plan today to coordinate transfer to SNF. - Exam Vitals: Temp Pulse Resp BP Pulse Ox 98.3 F 90 18 136/93 94 08/10/18 07:17 08/10/18 07:17 08/10/18 07:22 08/10/18 07:17 08/10/18 07:22 Exam: Gen.: Vitals noted. No acute distress. Alert HEENT: oropharynx clear, Normocephalic, atraumatic Neck: Supple. No adenopathy. Cardiac: irregular rhythm, no murmur,regular rate, +S1/S2, no lower extremity edema Pulmonary: no wheeze, no rales or rhonchi, diminished breath sounds Abdomen: soft, nontender, Bowel sounds noted, no guarding Extremities: nontender calf, no cyanosis or clubbing Neuro: moves all extremities, no focal deficits Psych: Appropriate mood and behavior - Assessment and Plan (1) Atrial fibrillation with RVR Current Visit: Yes Status: Acute (2) Sepsis Current Visit: Yes Status: Resolved (3) Acute respiratory failure with hypoxia Current Visit: No Status: Resolved (4) Elevated troponin Current Visit: No Status: Resolved (5) Hyponatremia Current Visit: No Status: Resolved (6) UTI (urinary tract infection) Current Visit: Yes Status: Acute (7) DVT prophylaxis Current Visit: Yes Status: Acute (8) Silicosis Current Visit: Yes Status: Chronic (9) Atrial fibrillation Current Visit: Yes Status: Chronic (10) Chronic respiratory failure with hypoxia Current Visit: Yes Status: Chronic - Time Spent with Patient Total time spent is greater than 50% in coordination of care (as documented) at patient's floor/unit and/or counseling patient: Internal Medicine: Result - Labs CBC & Chem 7: 08/10/18 05:10 08/10/18 05:10 Labs: Short CBC 08/10/18 Range/Units 05:10 WBC 9.1 (4.3-11.1) K/mcL Hgb 11.4 L (12.9-16.9) g/dL Hct 35.2 L (37.5-50.1) % Plt Count 244 (140-400) K/mcL Neutrophils # 5.7 (1.6-8.9) K/mcL BMP 08/10/18 05:10 Sodium 142 Potassium 3.6 Chloride 107 Carbon Dioxide 29 BUN 32 H Creatinine 1.02 Glucose 116 H Calcium 8.6 Cardiac Enzymes 08/10/18 Range/Units 05:10 Troponin I < 0.03 (< 0.04) ng/mL Consult Discharge Plan - Plan Referrals: Kiran Jacobo MD [Primary Care Provider] - (2) Sepsis Qualifiers: Sepsis type: sepsis due to unspecified organism Qualified Code(s): A41.9 - Sepsis, unspecified organism (6) UTI (urinary tract infection) Qualifiers: Urinary tract infection type: acute cystitis Hematuria presence: with hematuria Qualified Code(s): N30.01 - Acute cystitis with hematuria (9) Atrial fibrillation Qualifiers: Atrial fibrillation type: chronic Qualified Code(s): I48.2 - Chronic atrial fibrillation
[2018-08-10] MEDS ORDERED: MOM Conc 10 ML UD.LIQ PO ONE (10:56)
--- NOTE | 2018-08-10 11:36 | Discharge Summary ---
<Delon Hernandez - Last Filed: 08/10/18 18:26> Orders not resulted at time of discharge: Pending orders 08/05/18 17:25 Culture,Blood [BC] Stat Date of Encounter: 08/10/18 - Discharge Diagnosis (1) Atrial fibrillation with RVR Status: Acute (2) Sepsis Status: Resolved Qualifiers: Sepsis type: sepsis due to unspecified organism Qualified Code(s): A41.9 - Sepsis, unspecified organism (3) UTI (urinary tract infection) Status: Acute Qualifiers: Urinary tract infection type: acute cystitis Hematuria presence: with hematuria Qualified Code(s): N30.01 - Acute cystitis with hematuria (4) DVT prophylaxis Status: Resolved (5) Silicosis Status: Chronic (6) Urinary retention Priority: Secondary Status: Acute (7) Atrial fibrillation Priority: Secondary Status: Chronic Qualifiers: Atrial fibrillation type: chronic Qualified Code(s): I48.2 - Chronic atrial fibrillation (8) Chronic respiratory failure with hypoxia Priority: Secondary Status: Chronic Hospital course: Mr. Fatima is a 88 year old male - Time Spent with Patient Total time spent providing and/or coordinating discharge services: 37min - Discharge Medications Prescriptions: Ciprofloxacin [Cipro] 250 mg PO BID 4 Days #8 tablet Diltiazem CD (24hr) [Cardizem CD] 180 mg PO DAILY 30 Days #30 cap.er.24h Home Medications: Clopidogrel [Plavix] 75 mg PO DAILY 07/03/18 [History] Ipratropium [ATROVENT Inhaler] 2 puff IH Q4H PRN 07/03/18 [History] Losartan [Cozaar] 25 mg PO DAILY 07/03/18 [History] Memantine [Namenda] 10 mg PO BID 07/03/18 [History] Metoprolol [Lopressor] 25 mg PO QAM PRN MDD 2 TABS PER 24H 07/03/18 [History] Quetiapine Fumarate [Seroquel] 50 mg PO HS 07/03/18 [History] Tamsulosin [Flomax] 0.4 mg PO DAILY 07/03/18 [History] clonazePAM [Clonazepam] 0.5 mg PO DAILY PRN 07/03/18 [History] Aspirin [Lo-Dose Aspirin EC] 81 mg PO HS 08/05/18 [History] Loratadine [Allergy Relief] 10 mg PO DAILY PRN 08/05/18 [History] Tiotropium [Spiriva] 1 puff IH DAILY 08/05/18 [History] Ciprofloxacin [Cipro] 250 mg PO BID 4 Days #8 tablet 08/10/18 [Rx] Diltiazem CD (24hr) [Cardizem CD] 180 mg PO DAILY 30 Days #30 cap.er.24h 08/10/18 [Rx] Allergies/Adverse Reactions: Allergy/AdvReac Type Severity Reaction Status Date / Time azithromycin [From Zithromax] Allergy Mild Hives Verified 07/25/18 09:23 fluticasone [From Flonase] AdvReac See Verified 08/05/18 22:59 Comments gabapentin AdvReac Headache Verified 08/05/18 22:59 Date of admission: 08/06/18 13:11 Primary care physician: Kiran Jacobo MD Consults: 08/06/18 01:50 Consult to Urology [CONS] Routine Consulting Provider: [facility] Reason for Consult: New hydronephrosis, cystitis with possible outlet obstruction. Cystoscopy recommended based on imaging Call Completed: No 08/06/18 04:41 Consult to Nurse Navigator [CONS] Routine Comment: 08/06/18 12:42 Consult to Cardiology [CONS] Routine Comment: Consulting Provider: [facility] Reason for Consult: Elevated troponin, afib rvr now sinus Time Notified: 12:42 Call Completed: Yes 08/09/18 07:51 Consult to Occupational Therapy [CONS] Routine Comment: Evaluate, develop and implement POC Reason for Consult: weakness Does patient have active BEDREST order?: No Is patient medically & hemodynamically stable?: Yes Consult to Physical Therapy [CONS] Routine Comment: Evaluate, develop and implement POC Reason for Consult: weakness Does patient have active BEDREST order?: No Is patient medically & hemodynamically stable?: Yes 08/10/18 00:45 Consult to Respiratory Therapy [CONS] Routine Reason for Consult: Please add Accupap to pts. breathing txs. Thanks Call Completed: Yes 08/10/18 11:32 Consult to Sample Selector [CONS] Routine Reason for SW Consult: Discharge planning, PT recommended 2 weeks SNF rehab, patient agreeable, requested something close to home, mentioned [facility] - Constitutional Vitals: Temp Pulse Resp BP Pulse Ox 98.0 F 85 18 154/76 98 08/10/18 16:18 08/10/18 16:18 08/10/18 16:18 08/10/18 16:18 08/10/18 16:18 - Patient Status Disposition: Transfer SNF Condition: Fair - Discharge Instructions Instructions: Ciprofloxacin (By mouth), Diltiazem (By mouth), Atrial Fibrillation (DC), Urinary Tract Infection in Men (DC) Follow Up With: Az Garcia [Partnered Physician] - 08/16/18 10:00 am Kiran Jacobo MD [Primary Care Provider] - 08/17/18 10:15 am - Attending Attestation I examined this patient and my medical decision-making was reviewed with the Resident Physician on 08/10/18. I agree with the documented findings, disposition and treatment plan as described except to the extent set forth below. Mr Fatima has been admitted for respiratory failure and COPD. He had issues with rapid a fib and has improved with increased Cardizem dose. He is now afebrile and breathing at baseline. He is ready for discharge to rehab. Exam alert Comfortable Mucus membranes dry Heart irreg and not tachy Lungs with no wheeze abd soft No edema Plan D/C to SNF today. <Yasmany Cannon - Last Filed: 08/10/18 19:18> - NOTES TO OUTPATIENT PROVIDER Notes to Outpatient Provider: Patient presented for weakness and fall. He was found to have a UTI. He was treated for UTI, AFib RVR, Sepsis, Acute Respiratory Failure with Hypoxia. He responded well to medical treatment. His heart rate was difficult to control and we will discharge with increased cardizem from 120 daily to 180 daily. Antibiotics were de-escalated to Ciprofloxacin and he will be discharged with 4 more days Cipro for a total 10 days antibiotics. He will be discharged with [facility] for outpatient Urology follow up and management who he sees regularly. PT recommended 2 weeks SNF rehab for functional ability improvement before returning home. Orders not resulted at time of discharge: Pending orders 08/05/18 19:15 Culture,Blood [BC] Stat Date of Encounter: 08/10/18 Time of Encounter: 11:35 - Discharge Diagnosis (1) UTI (urinary tract infection) Priority: Primary Status: Acute Assessment and Plan: Urinalysis demonstrated urinary tract infection. Patient reported being treated 2 weeks ago for urinary tract infection. He follows with a urologist Dr. Fuentes in [place]. -urinalysis: > 300 protein, large blood, large leukocyte esterase, RBC 50-100, WBC TNTC -abdomen/pelvis CT demonstrating thickened urinary bladder wall with perivesical fat stranding, prostatomegaly. Correlation with cystoscopy recommended. New right hydronephrosis and hydroureter extending into urinary bladder. No calculus. -Urine culture growing GNR, pansensitive Plan: -continue Ciprofloxacin day 3, 4 more days at discharge, for a total of 10 days abx including zosyn at beginning of admission -continue [facility] catheter at discharge -urology was consulted and recommends continuing Ellison catheter at this time. No urgent need for cystoscopy or right ureteral stent placement. They recommend for the patient to follow up with his urologist upon discharge. Follow up established before discharge Qualifiers: Urinary tract infection type: acute cystitis Hematuria presence: with hematuria Qualified Code(s): N30.01 - Acute cystitis with hematuria (2) Atrial fibrillation with RVR Priority: Secondary Status: Acute Assessment and Plan: Atrial fibrillation with RVR in setting of sepsis secondary to urinary tract infection and chronic lung disease of silicosis. OTH2FfLevq = 3 TTE: LVEF 60-65%. Mild left ventricular diastolic dysfunction. Normal right ventricular structure and function. Mild-moderate aortic regurgitation. Mild-moderately thickened/calcified mitral leaflets, rheumatic in appearance. [place] evidence for mitral stenosis. MG 3 mmHg at 94 bpm Mild tricuspid regurgitation. Mild pulmonary hypertension by TR gradient. cardiology consulted and recommended that the patient the started on Cardizem CD 120mg daily. Cardiology recommendsed that he resumed his Plavix and aspirin for long-term anticoagulation instead of Lovenox or any other anticoagulant, despite the increased stroke risk since the patient has reported falling. He is a fall risk due to weakness and mechanical falls. This has been explained to the patient and he is agreeable. Cardiology does not recommend any other cardiac testing at this time and will follow-up outpatient. Cardizem 120 was switched to 180 because of RVR, currently rate controlled plan -continue cardizem 180 daily at discharge -Lovenox has been stopped -continue Plavix and aspirin -rate controlled (3) Sepsis Priority: Secondary Status: Resolved Assessment and Plan: Resolved. Sepsis secondary to urinary tract infection. On admission temperature 101.7, tachycardia 112, tachypnea 28, WBC 15.9, lactic acid 2.7. 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 -Head CT negative for acute intracranial abnormality -abdomen/pelvis CT demonstrating thickened urinary bladder wall with perivesical fat stranding, prostatomegaly. Correlation with cystoscopy recommended. New right hydronephrosis and hydroureter extending into urinary bladder. No calculus. 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 -Continue supplemental oxygen and home inhalers at discharge Hospital course: Mr. Fatima is a 88 year old male who presented to the emergency room because he felt weak and has not been able to walk very well for a couple days. He stated also that he has fallen twice in the last 24 hours but denies hitting his head he denies cough, chest pain, diarrhea, shortness of breath but does have oxygen at night at 2 L nasal cannula due to history of silicosis. He states he has some abdominal pain in the lower part of his abdomen and was treated 2 weeks ago for urinary tract infection. He denies hematuria and dysuria. In the emergency room patient's CBC was within normal limits, BMP showed elevated creatinine of 1.50 and a glucose of 165. Patient's initial lactic acid was 2.7, troponin was 0.04 the patient has a history of elevated troponins. EKG showed sinus tachycardia with a rate of 100 a QTC of [address] changes. Urinalysis showed large blood, large leukocyte esterase but negative nitrites. An abdomen/pelvis CT was also performed which demonstrated hydronephrosis and hydroureter. Patient's head CT showed no acute intracranial abnormalities and chest x-ray demonstrated chronic parenchymal disease most compatible with silicosis with progressive massive fibrosis in the upper lobes no acute process noted. Blood cultures and urine cultures were obtained, patient was started on Zosyn and admitted to the hospital for further management. Patient was admitted for UTI, AFib RVR, Acute Respiratory Failure with Hypoxia, Elevated troponin, Sepsis, Elevated Lactic Acid, Hyponatremia, Silicosis, DVT prophylaxis. He was treated with Zosyn until Urine cx yielded kuhn sensitive gram negative, switched to ciprofloxacin. Discharged with 4 days Cipro. AFib RVR was treated with rate control titrated to 180 Cardizem daily, will continue at discharge with home meds. Respiratory failure was treated with bronchodilators and supplemental oxygen, resolved, discharge on home meds. Elevated troponin was trended and resolved, likely demand ischemia secondary to sepsis, no evidence for cardiac intervention. Sepsis secondary to UTI treated with supportive care and antibiotics, resolved, lactic acid resolved. Hyponatremia resolved, silicosis managed with home meds. Patient discharged to SNF based on PT recs, discharged in stable condition. Discharge discussed with: patient, social work - Time Spent with Patient Total time spent providing and/or coordinating discharge services: Date of admission: 08/06/18 13:11 Primary care physician: Kiran Jacobo MD Consults: 08/06/18 01:50 Consult to Urology [CONS] Routine Consulting Provider: [facility] Reason for Consult: New hydronephrosis, cystitis with possible outlet obstruction. Cystoscopy recommended based on imaging Call Completed: No 08/06/18 04:41 Consult to Nurse Navigator [CONS] Routine Comment: 08/06/18 12:42 Consult to Cardiology [CONS] Routine Comment: Consulting Provider: [facility] Reason for Consult: Elevated troponin, afib rvr now sinus Time Notified: 12:42 Call Completed: Yes 08/09/18 07:51 Consult to Occupational Therapy [CONS] Routine Comment: Evaluate, develop and implement POC Reason for Consult: weakness Does patient have active BEDREST order?: No Is patient medically & hemodynamically stable?: Yes Consult to Physical Therapy [CONS] Routine Comment: Evaluate, develop and implement POC Reason for Consult: weakness Does patient have active BEDREST order?: No Is patient medically & hemodynamically stable?: Yes 08/10/18 00:45 Consult to Respiratory Therapy [CONS] Routine Reason for Consult: Please add Accupap to pts. breathing txs. Thanks Call Completed: Yes 08/10/18 11:32 Consult to Sample Selector [CONS] Routine Reason for SW Consult: Discharge planning, PT recommended 2 weeks SNF rehab, patient agreeable, requested something close to home, mentioned [facility] Discharging clinician: Yasmany Cannon Anticipated date of discharge: 08/10/18 - Constitutional Vitals: Temp Pulse Resp BP Pulse Ox 98.3 F 90 17 136/93 96 08/10/18 07:17 08/10/18 07:17 08/10/18 11:14 08/10/18 07:17 08/10/18 11:14 General appearance: Present: cooperative, A&O X 3, pleasant, no acute distress, answers questions appropriately Exam: Gen.: Vitals noted. No acute distress. Alert HEENT: oropharynx clear, Normocephalic, atraumatic Neck: Supple. No adenopathy. Cardiac: irregular rhythm, no murmur,regular rate, +S1/S2, no lower extremity edema Pulmonary: no wheeze, no rales or rhonchi, diminished breath sounds Abdomen: soft, nontender, Bowel sounds noted, no guarding Extremities: nontender calf, no cyanosis or clubbing Neuro: moves all extremities, no focal deficits Psych: Appropriate mood and behavior - Patient Status Functional capacity at discharge: uses cane/walker (patient needs A+1 for transfers and gait) Overall status at discharge: patient is progressing back to baseline - Diet and Activity Activity: as per physical therapy Diet: low salt diet
--- NOTE | 2018-08-10 14:22 | Physician Discharge Referral ---
ExtendedCare Referral Info Transfer To: Assisted Facility Provider in Charge: David Provider in Charge after Transfer: PCP Institutional Level of Care: Skilled - Diagnosis (1) UTI (urinary tract infection) Priority: Primary Status: Acute (2) Atrial fibrillation with RVR Priority: Secondary Status: Acute (3) Sepsis Priority: Secondary Status: Resolved (4) DVT prophylaxis Priority: Secondary Status: Resolved (5) Silicosis Priority: Secondary Status: Chronic Expected Duration of Placement: 2 weeks Prognosis: Good Aware of Diagnosis: Patient, Family Aware of Prognosis: Patient, Family - Transfer Medications Prescriptions: Ciprofloxacin [Cipro] 250 mg PO BID 4 Days #8 tablet Diltiazem CD (24hr) [Cardizem CD] 180 mg PO DAILY 30 Days #30 cap.er.24h Home Medications: Clopidogrel [Plavix] 75 mg PO DAILY 07/03/18 [History] Ipratropium [ATROVENT Inhaler] 2 puff IH Q4H PRN 07/03/18 [History] Losartan [Cozaar] 25 mg PO DAILY 07/03/18 [History] Memantine [Namenda] 10 mg PO BID 07/03/18 [History] Metoprolol [Lopressor] 25 mg PO QAM PRN MDD 2 TABS PER 24H 07/03/18 [History] Quetiapine Fumarate [Seroquel] 50 mg PO HS 07/03/18 [History] Tamsulosin [Flomax] 0.4 mg PO DAILY 07/03/18 [History] clonazePAM [Clonazepam] 0.5 mg PO DAILY PRN 07/03/18 [History] Aspirin [Lo-Dose Aspirin EC] 81 mg PO HS 08/05/18 [History] Loratadine [Allergy Relief] 10 mg PO DAILY PRN 08/05/18 [History] Tiotropium [Spiriva] 1 puff IH DAILY 08/05/18 [History] Ciprofloxacin [Cipro] 250 mg PO BID 4 Days #8 tablet 08/10/18 [Rx] Diltiazem CD (24hr) [Cardizem CD] 180 mg PO DAILY 30 Days #30 cap.er.24h 08/10/18 [Rx] Allergies/Adverse Reactions: Allergy/AdvReac Type Severity Reaction Status Date / Time azithromycin [From Zithromax] Allergy Mild Hives Verified 07/25/18 09:23 fluticasone [From Flonase] AdvReac See Verified 08/05/18 22:59 Comments gabapentin AdvReac Headache Verified 08/05/18 22:59 - Respiratory Orders Oxygen / L per min (2L at night, day to maintain O2%>90) Smoking Cessation: Smoking cessation has been advised. For more information, call the [place] Tobacco Quit Line at 7-397-MZXH-NOW. - Advance Directives Code Status: DNR-Arrest/Don't Intubate - Mobility Orders Ambulate (with assistance per PT, requires A+1 for transfer and gait) - Rehabiliation Orders Rehab Potential: Good Rehab Orders: Evaluation for Physical Therapy, Evaluation for Occupational Therapy - Treatments List/Other: [facility] in place, patient regularly follows with Urology, will have follow up sc heduled at discharge - Diet Orders Cardiac House Supplement per Dietary: ensure enlive CERTIFICATION: I certify that the transfer of the above named patient to an Extended Care Facility is necessary for the continuing treatment of the diagnosis listed. The above information is true and accurate reflection of patient's current condition. Confidential - Redisclosure prohibited without a patient's written consent.
--- NOTE | 2018-08-10 14:52 | Electrocardiograph Report ---
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
[2018-08-10 16:22] VITALS: BP 154/76
== END 2018-08-10 18:30 | DRG 871 ==
LOC: EMEROOARM 17:00 → 2NENU 17:00 → SUATTDRO 08-06 13:11
PROVIDERS: ADMIT Family Medicine; ATTEND Internal Medicine

== ENCOUNTER 2019-03-25 11:51 | Inpatient (IN) ==
[2019-03-25] MEDS ORDERED: 0.9 % Sodium Chloride 1,000 ML IVC ONE (11:58)
[2019-03-25] MEDS ORDERED: Pantoprazole 80 MG in 0.9 % Sodium Chloride 50 ML IVPB ONE (11:58)
[2019-03-25 12:11] LABS: Basophils # 0.1 K/mcL (0.0-0.2); Basophils % 0.7 %; Eosinophils # 0.2 K/mcL (0.0-0.6); Eosinophils % 2.4 %; Hematocrit 37.2 % (37.5-50.1); Hemoglobin 11.8 g/dL (12.9-16.9); Immature Granulocytes % 0.6 % (0-4); Lymphocytes # 2.8 K/mcL (0.6-4.6); Lymphocytes % 32.9 %; Mean Corpuscular HGB Conc 31.7 g/dL (31.6-35.5); Mean Corpuscular Hemoglobin 30.2 pg (28.0-33.3); Mean Corpuscular Volume 95.1 fL (83.0-100.0); Mean Platelet Volume 10.1 fL (9.4-12.4); Monocytes % 11.7 %; Neutrophils # 4.3 K/mcL (1.6-8.9); Platelet Count 173 K/mcL (140-400); Red Blood Count 3.91 M/mcL (4.19-5.50); Red Cell Distribution Width 14.1 % (11.5-14.5); Segmented Neutrophils % 51.7 %; White Blood Count 8.4 K/mcL (4.3-11.1)
--- NOTE | 2019-03-25 12:11 | Emergency Department Note ---
Disposition Clinical Impression: GI bleed Qualifiers: GI bleed type/associated pathology: anorectal hemorrhage Qualified Code(s): K62.5 - Hemorrhage of anus and rectum Disposition: Admitted As Inpatient Condition: Critical Time of Disposition: 13:47 GI Bleed HPI - General Chief complaint: ED GI Bleed Stated complaint: possible rectal bleeding Time Seen by Provider: 03/25/19 11:57 Source: patient, EMS Mode of arrival: EMS Limitations: no limitations Nursing Notes Reviewed: Yes Vital Signs Reviewed: Yes - History of Present Illness HPI Narrative: 88-year-old male past medical history of silicosis presenting for one day of acute GI bleed. Patient states he woke up this morning and had a bowel movement composed of bright red blood. Patient states he had stem the toilet for quite some time because he just "kept bleeding". Patient states that he had a subsequent second bowel movement composed of bright red bleeding called 911 and was transported. EMS states the patient was alert and oriented, sitting normally in route: The patient arrived to the ED and was being moved to the hospital that he syncopized. The patient became alert to painful stimuli via sternal rub but has appeared pale and somewhat altered since this time. Patient says that he has some noticed tingling his upper extremities. Patient denies any other concerns or complaints at this time. He has no chest pain or shortness of breath, no abdominal pain nausea or vomiting. Patient denies any other abnormal bleeding. Patient states he had a greenlight procedure performed within the past few months due to history of prostate cancer. Pulmonary initial inspection patient is lying in the Trendelenburg position in hospital bed, he is arousable to painful stimuli, recurrence reassessments showed that the patient is becoming more lucid conversation. Hemoccult blood test was going to be performed but upon removing the patient's diaper large amounts of clot with noticeably active bleeding per rectum were visualized by the resident physician. Immediate 2 units of trauma blood were ordered with 2 units PRBCs pending type and screen with 2 units being kept at all times and the blood bank for rapid transfusion as needed. The patient verbalized his agreement with being transfused and stated that he wants to be full code with all measures taken in the event that he experiences cardiopulmonary arrest. Pt Subjective Complaint: gross bloody stools, gross hematochezia Onset (ago): day(s) Consistency: Worsening Severity: severe Improves with: nothing Worsens with: nothing Treatments Prior to Arrival: none - Related Data Home Medications Medication Instructions Recorded Confirmed Clopidogrel [Plavix] 75 mg PO DAILY 07/03/18 03/25/19 Quetiapine Fumarate [Seroquel] 50 mg PO HS 07/03/18 03/25/19 Aspirin [Lo-Dose Aspirin EC] 81 mg PO HS 08/05/18 03/25/19 clonazePAM [Clonazepam] 0.5 mg PO HS 10/24/18 03/25/19 Finasteride [Proscar] 5 mg PO DAILY 11/24/18 03/25/19 Sotalol [Betapace] 40 mg PO Q12HR 11/24/18 03/25/19 Tamsulosin [Flomax] 0.4 mg PO DAILY 11/24/18 03/25/19 Acetaminophen [Non-Aspirin] 650 mg PO Q6H PRN 01/18/19 03/25/19 Ipratropium [ATROVENT Inhaler] 1 puff PO QID 01/18/19 03/25/19 Losartan [Cozaar] 25 mg PO QAM 01/18/19 03/25/19 Memantine HCl 10 mg PO BID 01/18/19 03/25/19 Tiotropium [Spiriva] 1 puff PO DAILY 01/18/19 03/25/19 Loratadine [Allergy Relief] 10 mg PO 03/25/19 03/25/19 Allergies Allergy/AdvReac Type Severity Reaction Status Date / Time azithromycin [From Zithromax] Allergy Mild Hives Verified 01/18/19 08:06 fluticasone [From Flonase] AdvReac See Verified 01/18/19 08:06 Comments gabapentin AdvReac Headache Verified 01/18/19 08:06 Review of Systems: *See History of Present Illness for more detail Constitutional: Denies: fever, chills Cardiovascular: Denies: chest pain Respiratory: Denies: dyspnea, cough, hemoptysis Gastrointestinal: Admits to weakness numbness and paresthesias in the upper extremities. Patient admits to gross hematochezia Denies: abdominal pain, nausea, vomiting, diarrhea, constipation, hematemesis, melena Genitourinary: Denies: hematuria Musculoskeletal: Denies: back pain, neck pain Neurological: Denies: headache, lightheadedness/dizziness, difficulty with ambulation. Endocrine: Admits: fatigue All systems ED: reviewed and negative except as stated. Review of Systems: As Per HPI Past Medical History - Past Medical History Medical history: Reports: atrial fibrillation, COPD, coronary artery disease, hypertension Surgical history: Reports: cancer surgery, cholecystectomy, other Psychiatric history: Reports: anxiety - Social History Smoking Status: Former smoker Smokeless Tobacco Status: No Alcohol use: Reports: none Drug use: Reports: none Physical Exam Constitutional: Patient in acute distress due to massive blood loss, and syncopized once in the ED but is otherwise alert and oriented, engaged to conversation, speech is fluid, answers questions appropriately Neuro: GCS 15, no overt focal neurological deficits Head: Atraumatic, normocephalic Eyes: Pupils equal, round and reactive to light, no scleral icterus, no conjunctival injection Neck: Trachea midline without deviation. Anterior neck is supple without swelling. *Chest: Symmetric chest wall rise *Heart: Cardiac rhythm and rate are regular with S1 and S2 , no S3 or S4 appreciated, no murmurs, gallops, rubs, or clicks. *Lungs: Lungs are clear to auscultation bilaterally, without accessory muscle use or prolonged expiratory phase. No wheezes, rhonchi or stridor appreciated. Abdomen: Abdomen is flat, soft to palpation, normal bowel sounds. No abdominal bruit auscultated. Non-distended, non-rigid, no organomegaly, no ascites appreciated. No pulsatile mass, no tenderness or guarding to palpation in all four quadrants, no rebound Extremities: Normal capillary refill without evidence of pedal edema, joint swelling or erythema. Pulses/motor/sensory intact in all 4 extremities. Psychiatric exam: Patient displays a normal affect and mood for the environment. No overt signs of hallucination. Integumentary: warm, dry, intact, normal color. No rash, cyanosis, diaphoresis, erythema, or pallor - General Limitations: no limitations General appearance: alert, in distress Course Course Narrative: Dr. Eller from endoscopy was consulted regarding active GI bleed. Consulted general surgery placed and is following. Consult greatly appreciated. - Reevaluation(s) Reevaluation #1: The patient's hemoglobin and hematocrit are noted to be mildly decreased at 11.8 upon initial evaluation. 2 subsequent H&H studies have shown a normal hemoglobin and hematocrit. We will positive blood and fusion at this time with cautious reassessment frequently. Repeat rectal exam showed no blood around the rectum. Patient states that he feels much better, color has returned, patient states he has no pain or nausea at this time. Vital Signs Temperature 97.6 F 03/25/19 11:56 Pulse Rate 47 03/25/19 11:56 Respiratory Rate 20 03/25/19 11:56 Blood Pressure 139/65 03/25/19 11:56 O2 Sat by Pulse Oximetry 96 03/25/19 11:56 Temperature 97.5 F L 03/25/19 12:51 Pulse Rate 56 03/25/19 12:51 Respiratory Rate 18 03/25/19 12:51 Blood Pressure 146/63 03/25/19 12:51 O2 Sat by Pulse Oximetry 100 03/25/19 12:51 Oxygen Delivery Oxygen Delivery Nasal Cannula GI Bleed - [facility] Narrative Medical decision making narrative: Patient admitted to hospitalist medicine service in the ICU with general surgery consult for endoscopy as required for the management of GI bleed. Patient's had no further bleeding on subsequent reassessment. Patient remains asymptomatic and hemodynamically stable. - Lab Data Lab results reviewed: Yes I reviewed the patient's lab results. Result diagrams: 03/25/19 13:16 03/25/19 12:00 Lab Results 03/25/19 03/25/19 03/25/19 Range/Units 12:00 12:00 12:00 WBC 8.4 (4.3-11.1) K/mcL RBC 3.91 L (4.19-5.50) M/mcL Hgb 11.8 L (12.9-16.9) g/dL Hct 37.2 L (37.5-50.1) % MCV 95.1 (83.0-100.0) fL MCH 30.2 (28.0-33.3) pg MCHC 31.7 (31.6-35.5) g/dL RDW 14.1 (11.5-14.5) % Plt Count 173 (140-400) K/mcL MPV 10.1 (9.4-12.4) fL Immature Gran % 0.6 (0-4) % Seg Neutrophils % 51.7 % Lymphocytes % 32.9 % Monocytes % 11.7 % Eosinophils % 2.4 % Basophils % 0.7 % Neutrophils # 4.3 (1.6-8.9) K/mcL Lymphocytes # 2.8 (0.6-4.6) K/mcL Monocytes # 1.0 (0.0-1.3) K/mcL Eosinophils # 0.2 (0.0-0.6) K/mcL Basophils # 0.1 (0.0-0.2) K/mcL PT (9.4-12.1) Seconds INR APTT (26.0-36.0) Seconds Sodium 137 (136-145) mEq/L Potassium 4.1 (3.5-5.1) mEq/L Chloride 105 (98-107) mEq/L Carbon Dioxide 29 (23-29) mEq/L BUN 24 H (8-23) mg/dL Creatinine 1.29 (0.70-1.30) mg/dL Est GFR ( Amer) > 60 (> 60) Est GFR (Non-Af Amer) 52 L (> 60) BUN/Creatinine Ratio 19 (6-26) Glucose 109 H (70-105) mg/dL POC Glucose (70-99) mg/dL Calculated Osmolality 289 (280-300) Calcium 8.4 L (8.6-10.3) mg/dL Blood Type O POSITIVE Antibody Screen NEGATIVE Crossmatch See Detail 03/25/19 03/25/19 03/25/19 Range/Units 12:00 12:01 12:42 WBC (4.3-11.1) K/mcL RBC (4.19-5.50) M/mcL Hgb 13.4 D (12.9-16.9) g/dL Hct 41.3 (37.5-50.1) % MCV (83.0-100.0) fL MCH (28.0-33.3) pg MCHC (31.6-35.5) g/dL RDW (11.5-14.5) % Plt Count (140-400) K/mcL MPV (9.4-12.4) fL Immature Gran % (0-4) % Seg Neutrophils % % Lymphocytes % % Monocytes % % Eosinophils % % Basophils % % Neutrophils # (1.6-8.9) K/mcL Lymphocytes # (0.6-4.6) K/mcL Monocytes # (0.0-1.3) K/mcL Eosinophils # (0.0-0.6) K/mcL Basophils # (0.0-0.2) K/mcL PT 12.3 H (9.4-12.1) Seconds INR 1.1 APTT 26.5 (26.0-36.0) Seconds Sodium (136-145) mEq/L Potassium (3.5-5.1) mEq/L Chloride (98-107) mEq/L Carbon Dioxide (23-29) mEq/L BUN (8-23) mg/dL Creatinine (0.70-1.30) mg/dL Est GFR ( Amer) (> 60) Est GFR (Non-Af Amer) (> 60) BUN/Creatinine Ratio (6-26) Glucose (70-105) mg/dL POC Glucose 107 H (70-99) mg/dL Calculated Osmolality (280-300) Calcium (8.6-10.3) mg/dL Blood Type Antibody Screen Crossmatch 03/25/19 Range/Units 13:16 WBC (4.3-11.1) K/mcL RBC (4.19-5.50) M/mcL Hgb 13.8 (12.9-16.9) g/dL Hct 42.7 (37.5-50.1) % MCV (83.0-100.0) fL MCH (28.0-33.3) pg MCHC (31.6-35.5) g/dL RDW (11.5-14.5) % Plt Count (140-400) K/mcL MPV (9.4-12.4) fL Immature Gran % (0-4) % Seg Neutrophils % % Lymphocytes % % Monocytes % % Eosinophils % % Basophils % % Neutrophils # (1.6-8.9) K/mcL Lymphocytes # (0.6-4.6) K/mcL Monocytes # (0.0-1.3) K/mcL Eosinophils # (0.0-0.6) K/mcL Basophils # (0.0-0.2) K/mcL PT (9.4-12.1) Seconds INR APTT (26.0-36.0) Seconds Sodium (136-145) mEq/L Potassium (3.5-5.1) mEq/L Chloride (98-107) mEq/L Carbon Dioxide (23-29) mEq/L BUN (8-23) mg/dL Creatinine (0.70-1.30) mg/dL Est GFR ( Amer) (> 60) Est GFR (Non-Af Amer) (> 60) BUN/Creatinine Ratio (6-26) Glucose (70-105) mg/dL POC Glucose (70-99) mg/dL Calculated Osmolality (280-300) Calcium (8.6-10.3) mg/dL Blood Type Antibody Screen Crossmatch - EKG Data EKG attestation: Yes I reviewed and interpreted this EKG. EKG results narrative: Patient's EKG shows a sinus bradycardia with a borderline QT interval with a heart rate of 40 bpm, VT interval of 196 ms, serous duration 94 ms, QT/QTc interval of 548/490 ms respectfully. There are no significant ST segment elevations, depressions, pathologic Q waves, there are abnormal T-wave inversions that are noted in lead aVL which may represent a normal variant and are consistent with prior EKG. This EKG which was performed today is generally consistent in morphology with prior EKG that was performed on October 262018 as well as one performed on 08/20/2018. Attestation Statement - Attestation Attestation: I, Carlos A Gutierrez, examined this patient and my medical decision-making was reviewed with the CLERK CARRIER/PA/Advanced Practice Nurse/Resident Physician. I agree with the documented findings, disposition and treatment plan as described except to the extent set forth below. 88-year-old male presents emergency Department with concerns of rectal bleeding. Patient is pale upon his initial presentation. EMS states that he was awake alert and converses appropriately throughout the transport to the emergency department however when they shifted him from the stretcher to the EMS bed he syncopized. He became more pale and was hypotensive. IV fluids were started immediately and patient began to wake up. He is now awake and alert and answering questions appropriately. He had significant hemorrhage of bright red blood per rectum during the evaluation. Patient has a history of atrial fibrillation however he takes only aspirin and Plavix without other anticoagulants. Denies SI or HI. Denies recent trauma. Patient has difficulty giving a adequate history regarding his case and presentation secondary to his weakness and fatigue. We spoke with the general surgeon, Dr. Morillo who was on- call for GI bleeding. Dr. Morillo evaluated the patient in the emergency department and is aware of the patient's situation. Patient will be treated in the ICU for further care.
[2019-03-25] MEDS ORDERED: 0.9 % Sodium Chloride 1,000 ML ONE (12:17)
[2019-03-25 12:24] LABS: INR 1.1; Prothrombin Time 12.3 Seconds (9.4-12.1)
[2019-03-25 12:27] LABS: Activated Partial Thrombo Time 26.5 Seconds (26.0-36.0)
[2019-03-25 12:31] LABS: BUN/Creatinine Ratio 19 (6-26); Blood Urea Nitrogen 24 mg/dL (8-23); Calcium 8.4 mg/dL (8.6-10.3); Carbon Dioxide 29 mEq/L (23-29); Chloride 105 mEq/L (98-107); Glucose 109 mg/dL (70-105); Osmolality,Calculated 289 (280-300); Potassium 4.1 mEq/L (3.5-5.1); Sodium 137 mEq/L (136-145); eGFR For African Americans > 60 (> 60); eGFR For Non-African Americans 52 (> 60)
[2019-03-25 12:52] LABS: Hematocrit 41.3 % (37.5-50.1); Hemoglobin 13.4 g/dL (12.9-16.9)
[2019-03-25 13:27] LABS: Hematocrit 42.7 % (37.5-50.1); Hemoglobin 13.8 g/dL (12.9-16.9)
--- NOTE | 2019-03-25 14:09 | Internal Med History&Physical ---
Date of Encounter: 03/25/19 Time of Encounter: 14:09 Internal Medicine - H&P: HPI History of present illness: Mr. Fatima is a 88 year old male with history atrial fibrillation, COPD, HTN, CAD on aspirin/Plavix, chronic silicosis, presented for acute onset of bright red blood per rectum. Patient states he was waking in the morning and tried to urinate. Initially he sat on the toilet but states it was continuous bleeding. He then had a second episode and so was transported here. On arrival to ED patient had a syncopal episode. He was then back to baseline. There was bleeding initially visualized which has since resolved. He was transfused two units of PRBC and patient now at baseline mental status. He denies any further lightheadedness, chest pain, shortness of breath, n/v, palpitations. EKG showed prolonged QTc of 490, no acute st/t wave changes. Hemoglobin checked 11.8 on a dmission and repeats were in 13's. BUN was elevated at 24 but of note that is near his baseline. 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 TURP - Social History Smoking Status: Former smoker Smokeless Tobacco Status: No Alcohol use: none Drug use: none - Family History Father Living Status: Hx Family Cancer: Yes Internal Medicine - H&P: Meds Clopidogrel [Plavix] 75 mg PO DAILY 07/03/18 [History] Quetiapine Fumarate [Seroquel] 50 mg PO HS 07/03/18 [History] Aspirin [Lo-Dose Aspirin EC] 81 mg PO HS 08/05/18 [History] clonazePAM [Clonazepam] 0.5 mg PO HS 10/24/18 [History] Finasteride [Proscar] 5 mg PO DAILY 11/24/18 [History] Sotalol [Betapace] 40 mg PO Q12HR 11/24/18 [History] Tamsulosin [Flomax] 0.4 mg PO DAILY 11/24/18 [History] Acetaminophen [Non-Aspirin] 650 mg PO Q6H PRN 01/18/19 [History] Ipratropium [ATROVENT Inhaler] 1 puff PO QID 01/18/19 [History] Losartan [Cozaar] 25 mg PO QAM 01/18/19 [History] Memantine HCl 10 mg PO BID 01/18/19 [History] Tiotropium [Spiriva] 1 puff PO DAILY 01/18/19 [History] Loratadine [Allergy Relief] 10 mg PO 03/25/19 [History] Allergy/AdvReac Type Severity Reaction Status Date / Time azithromycin [From Zithromax] Allergy Mild Hives Verified 01/18/19 08:06 fluticasone [From Flonase] AdvReac See Verified 01/18/19 08:06 Comments gabapentin AdvReac Headache Verified 01/18/19 08:06 All Systems PM: A 10-system review of systems was performed and is negative for pertinent findings except as documented above in the HPI. - Constitutional Vitals: Temp Pulse Resp BP Pulse Ox 97.5 F L 56 18 146/63 100 03/25/19 12:51 03/25/19 12:51 03/25/19 12:51 03/25/19 12:51 03/25/19 12:51 General appearance: Present: A&O X 3 Exam: . - Head Head exam: Present: atraumatic, normocephalic - Eye Eye exam: Present: PERRL, conjuntiva pink, sclera anicteric Pupils: Present: PERRL - Neck Neck exam general surgery: Present: supple, trachea midline. Absent: lymphadenopathy - Respiratory Respiratory exam: Present: CTAB. Absent: accessory muscle use, rales, rhonchi, wheezes - Cardiovascular Cardiovascular exam: Present: RRR, +S1, +S2. Absent: diastolic murmur, gallop, rubs, systolic murmur - GI/Abdominal GI/Abdominal exam: Present: normal bowel sounds, soft, no peritoneal signs. Absent: distended, tenderness - Extremities Exam Extremities exam: Present: pedal edema (trace), warm, radial pulses palpable and symmetrical. Absent: calf tenderness, cyanotic - Neurological Exam Neurological exam: Present: CN II-XII intact, oriented X3, no focal deficits. Absent: pronater drift, facial droop, speech deficit - Skin Skin exam: Present: dry, intact Internal Med - H&P Results - Labs CBC & Chem 7: 03/25/19 13:16 07/20/19 12:00 Labs: Short CBC 03/25/19 03/25/19 03/25/19 Range/Units 12:00 12:42 13:16 WBC 8.4 (4.3-11.1) K/mcL Hgb 11.8 L 13.4 D 13.8 (12.9-16.9) g/dL Hct 37.2 L 41.3 42.7 (37.5-50.1) % Plt Count 173 (140-400) K/mcL Neutrophils # 4.3 (1.6-8.9) K/mcL BMP 03/25/19 12:00 Sodium 137 Potassium 4.1 Chloride 105 Carbon Dioxide 29 BUN 24 H Creatinine 1.29 Glucose 109 H Calcium 8.4 L - Assessment and Plan (1) GI bleed Current Visit: Yes Status: Acute Assessment and plan: Suspect lower GIB. Currently hemodynamically stable BP/HR. HR may be skewed as patient on Sotalol. Had syncopal episode from anemia required 2 units PRBC and 1 L normal saline. Currently in no acute distress. Cycle H&H Monitor vital signs closely to avoid any cardiac complications, Sotalol will need continued at it's current dose. Protonix drip, if etiology determined LGIB for certain, then can DC Protonix. General Surgery consulted, recommendations appreciated. Qualifiers: GI bleed type/associated pathology: anorectal hemorrhage Qualified Code(s): K62.5 - Hemorrhage of anus and rectum (2) Paroxysmal atrial fibrillation Current Visit: No Status: Acute Assessment and plan: Patient not on anticoagulation but he is on dual antiplatelet therapy. Will need held. Plan to resume at least one antiplatelet drug when patient GI bleed is resolved if he could tolerate. (3) Chronic respiratory failure with hypoxia Current Visit: No Status: Chronic (4) Chronic silicosis Current Visit: No Status: Chronic (5) Coronary artery disease Current Visit: Yes Status: Acute Qualifiers: Coronary Disease-Associated Artery/Lesion type: unspecified vessel or lesion type [place] vs. transplanted heart: [place] heart Associated angina: without angina Qualified Code(s): I25.10 - Atherosclerotic heart disease of [place] coronary artery without angina pectoris - Time Spent With Patient Total time spent is greater than 50% in coordination of care (as documented) at patient's floor/unit and/or counseling patient:
[2019-03-25] MEDS ORDERED: Naloxone 0.4 MG/ML INJ IVP PRN (14:10)
[2019-03-25] MEDS ORDERED: Acetaminophen 325 MG TABLET PO PRN (14:15)
[2019-03-25] MEDS: Pantoprazole 40 MG in 0.9 % Sodium Chloride Mini Bag 100 ML IVC SCH ×2 (15:46→20:08)
--- NOTE | 2019-03-25 15:50 | AcuteCare Surgery Consult Note ---
Date of Encounter: 03/25/19 Time of Encounter: 15:45 Assessment and Plan (1) GI bleed Current Visit: Yes Status: Acute 88M with LGIB with associated hemodynamic signs of instability; HR and BP wnl; currently getting fluid; CLD, bowel prep trend h/h transfuse as needed plan for EGD and colonoscopy on 03/26; Qualifiers: GI bleed type/associated pathology: anorectal hemorrhage Qualified Code(s): K62.5 - Hemorrhage of anus and rectum History of Present Illness Consult date: 03/25/19 Reason for consult: other (lower GI bleed) History of present illness: 88M PMH significant for cardiac arrhythmia for which he is on plavix, CAD, HTN, BPH, COPD who presents with a lower GI bleed x 2 days with today being the worse of the two resulting in him coming to the ED. The patient does report associated light headedness/dizziness and syncope. No reports of chest pain nor worsening SOB beyond his underlying COPD. INR is wnl and he does not report any liver disease. General surgery was consulted for management recommendations; Of note the patient does have a family history of colon cancer in his sister. 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 TURP - Social History Smoking Status: Former smoker Smokeless Tobacco Status: No Alcohol use: none Drug use: none - Family History Father Living Status: Hx Family Cancer: Yes Medications and Allergies Clopidogrel [Plavix] 75 mg PO DAILY 07/03/18 [History] Quetiapine Fumarate [Seroquel] 50 mg PO HS 07/03/18 [History] Aspirin [Lo-Dose Aspirin EC] 81 mg PO HS 08/05/18 [History] clonazePAM [Clonazepam] 0.5 mg PO HS 10/24/18 [History] Finasteride [Proscar] 5 mg PO DAILY 11/24/18 [History] Sotalol [Betapace] 40 mg PO Q12HR 11/24/18 [History] Tamsulosin [Flomax] 0.4 mg PO DAILY 11/24/18 [History] Acetaminophen [Non-Aspirin] 650 mg PO Q6H PRN 01/18/19 [History] Ipratropium [ATROVENT Inhaler] 1 puff PO QID 01/18/19 [History] Losartan [Cozaar] 25 mg PO QAM 01/18/19 [History] Memantine HCl 10 mg PO BID 01/18/19 [History] Tiotropium [Spiriva] 1 puff PO DAILY 01/18/19 [History] Loratadine [Allergy Relief] 10 mg PO 03/25/19 [History] Allergy/AdvReac Type Severity Reaction Status Date / Time azithromycin [From Zithromax] Allergy Mild Hives Verified 01/18/19 08:06 fluticasone [From Flonase] AdvReac See Verified 01/18/19 08:06 Comments gabapentin AdvReac Headache Verified 01/18/19 08:06 Review of Systems All systems PM: 12 point ROS negative besides HPI findings General Surgery Exam Initial Vital Signs Temp Pulse Resp BP Pulse Ox 97.6 F 47 20 139/65 96 03/25/19 11:56 03/25/19 11:56 03/25/19 11:56 03/25/19 11:56 03/25/19 11:56 - General physical appearance no distress - Eyes PERRL, normal ocular movement - ENT normocephalic - Neck trachea midline, no lymphadectomy - Respiratory normal expansion, normal respiratory effort - Cardiovascular Cardiovascular exam: Present: RRR - Abdomen Abdomen general surgery: Present: soft, non tender - Integumentary Integumentary general surgery: Present: warm and dry, no abnormal pigmentation - Neurologic Present: CN 2-12 grossly intact - Musculoskeletal Present: normal posture - Psychiatric Psychiatric general surgery: Present: A&Ox3 Exam Initial Vital Signs Temp Pulse Resp BP Pulse Ox 97.6 F 47 20 139/65 96 03/25/19 11:56 03/25/19 11:56 03/25/19 11:56 03/25/19 11:56 03/25/19 11:56 Results - Labs 03/25/19 13:16 03/25/19 12:00 Abnormal lab results RBC 3.91 M/mcL (4.19-5.50) L 03/25/19 12:00 Hgb 11.8 g/dL (12.9-16.9) L 03/25/19 12:00 Hct 37.2 % (37.5-50.1) L 03/25/19 12:00 PT 12.3 Seconds (9.4-12.1) H 03/25/19 12:00 BUN 24 mg/dL (8-23) H 03/25/19 12:00 Est GFR (Non-Af Amer) 52 (> 60) L 03/25/19 12:00 Glucose 109 mg/dL (70-105) H 03/25/19 12:00 POC Glucose 100 mg/dL (70-99) H 03/25/19 15:26 Calcium 8.4 mg/dL (8.6-10.3) L 03/25/19 12:00 Crossmatch See Detail 03/25/19 12:00 Diabetes panel 03/25/19 Range/Units 12:00 Sodium 137 (136-145) mEq/L Potassium 4.1 (3.5-5.1) mEq/L Chloride 105 (98-107) mEq/L Carbon Dioxide 29 (23-29) mEq/L BUN 24 H (8-23) mg/dL Creatinine 1.29 (0.70-1.30) mg/dL Glucose 109 H (70-105) mg/dL Calcium 8.4 L (8.6-10.3) mg/dL Calcium panel 03/25/19 Range/Units 12:00 Calcium 8.4 L (8.6-10.3) mg/dL Pituitary panel 03/25/19 Range/Units 12:00 Sodium 137 (136-145) mEq/L Potassium 4.1 (3.5-5.1) mEq/L Chloride 105 (98-107) mEq/L Carbon Dioxide 29 (23-29) mEq/L BUN 24 H (8-23) mg/dL Creatinine 1.29 (0.70-1.30) mg/dL Glucose 109 H (70-105) mg/dL Calcium 8.4 L (8.6-10.3) mg/dL Adrenal panel 03/25/19 Range/Units 12:00 Sodium 137 (136-145) mEq/L Potassium 4.1 (3.5-5.1) mEq/L Chloride 105 (98-107) mEq/L Carbon Dioxide 29 (23-29) mEq/L BUN 24 H (8-23) mg/dL Creatinine 1.29 (0.70-1.30) mg/dL Glucose 109 H (70-105) mg/dL Calcium 8.4 L (8.6-10.3) mg/dL All other labs normal. Consult Discharge Plan - Plan Referrals: NONE,PCP [Primary Care Provider] -
[2019-03-25 18:57] LABS: Hematocrit 46.7 % (37.5-50.1); Hemoglobin 15.2 g/dL (12.9-16.9)
[2019-03-25] MEDS ORDERED: clonazePAM 0.5 MG TABLET PO SCH (21:00)
[2019-03-26] MEDS: Pantoprazole 40 MG in 0.9 % Sodium Chloride Mini Bag 100 ML IVC SCH ×3 (00:37→10:24)
--- NOTE | 2019-03-26 00:50 | Electrocardiograph Report ---
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
[2019-03-26 01:40] LABS: Basophils # 0.1 K/mcL (0.0-0.2); Basophils % 0.6 %; Eosinophils # 0.2 K/mcL (0.0-0.6); Eosinophils % 2.1 %; Hematocrit 43.2 % (37.5-50.1); Hemoglobin 13.9 g/dL (12.9-16.9); Immature Granulocytes % 0.8 % (0-4); Lymphocytes # 2.4 K/mcL (0.6-4.6); Lymphocytes % 31.2 %; Mean Corpuscular HGB Conc 32.2 g/dL (31.6-35.5); Mean Corpuscular Volume 93.3 fL (83.0-100.0); Mean Platelet Volume 10.4 fL (9.4-12.4); Monocytes % 12.6 %; Neutrophils # 4.1 K/mcL (1.6-8.9); Platelet Count 175 K/mcL (140-400); Red Blood Count 4.63 M/mcL (4.19-5.50); Red Cell Distribution Width 14.6 % (11.5-14.5); Segmented Neutrophils % 52.7 %; White Blood Count 7.8 K/mcL (4.3-11.1)
[2019-03-26 01:55] LABS: BUN/Creatinine Ratio 15 (6-26); Blood Urea Nitrogen 16 mg/dL (8-23); Calcium 8.4 mg/dL (8.6-10.3); Carbon Dioxide 26 mEq/L (23-29); Chloride 110 mEq/L (98-107); Glucose 118 mg/dL (70-105); Osmolality,Calculated 296 (280-300); Potassium 3.4 mEq/L (3.5-5.1); Sodium 142 mEq/L (136-145); eGFR For African Americans > 60 (> 60); eGFR For Non-African Americans > 60 (> 60)
--- NOTE | 2019-03-26 07:08 | Anesthesia Evaluation PreOp ---
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 Other Medical History: Denies Any Significant HX Anesthesia History: No Prior Anesthetic Complications, Past Anesthesia Alcohol Use: none Drug use: none Medications and Allergies Clopidogrel [Plavix] 75 mg PO DAILY 07/03/18 [History] Quetiapine Fumarate [Seroquel] 50 mg PO HS 07/03/18 [History] Aspirin [Lo-Dose Aspirin EC] 81 mg PO HS 08/05/18 [History] clonazePAM [Clonazepam] 0.5 mg PO HS 10/24/18 [History] Finasteride [Proscar] 5 mg PO DAILY 11/24/18 [History] Sotalol [Betapace] 40 mg PO Q12HR 11/24/18 [History] Tamsulosin [Flomax] 0.4 mg PO DAILY 11/24/18 [History] Acetaminophen [Non-Aspirin] 650 mg PO Q6H PRN 01/18/19 [History] Ipratropium [ATROVENT Inhaler] 1 puff PO QID 01/18/19 [History] Losartan [Cozaar] 25 mg PO QAM 01/18/19 [History] Memantine HCl 10 mg PO BID 01/18/19 [History] Tiotropium [Spiriva] 1 puff PO DAILY 01/18/19 [History] Loratadine [Allergy Relief] 10 mg PO 03/25/19 [History] Allergy/AdvReac Type Severity Reaction Status Date / Time azithromycin [From Zithromax] Allergy Mild Hives Verified 01/18/19 08:06 fluticasone [From Flonase] AdvReac See Verified 01/18/19 08:06 Comments gabapentin AdvReac Headache Verified 01/18/19 08:06 - Meds/Allergy Pre-op Review Medications Reviewed: Yes Allergies Reviewed: Yes Anesthesia Results - Labs 03/26/19 00:38 03/26/19 00:38 Anesthesia Exam Vital Signs/O2 Sat/Glucose, Most Recent Temp Pulse Resp BP Pulse Ox 97.4 F L 44 18 126/53 97 03/26/19 04:40 03/26/19 07:00 03/26/19 07:00 03/26/19 07:00 03/26/19 07:00 Blood Glucose* 107 Weight: 67 KG - BMI 20 NPO (# of Hours): 8 - HEENT Mallampati: I Teeth: Edentulous - Cardiac Rhythm: Irregular - Pulmonary Breath Sounds: bilateral Clear Anesthesia Assess/Plan ASA Score: 4 Anesthetic Plan: MAC Monitoring Plan: Standard Monitors Recovery Plan: ICU
[2019-03-26] MEDS ORDERED: Propofol 500 MG/50 ML INFUS..BTL ONE (07:52)
[2019-03-26] MEDS ORDERED: Lidocaine -MPF 2% 2 ML VIAL ONE (07:56)
[2019-03-26] MEDS ORDERED: Finasteride 5 MG TABLET PO SCH (09:00)
[2019-03-26] MEDS ORDERED: EPHEDrine 50 MG/ML VIAL ONE (09:01)
--- NOTE | 2019-03-26 10:10 | Pre-Sedation Evaluation ---
Pre-sedation evaluation - Pre-sedation checklist Date of procedure: 03/26/19 Procedure: colonoscopy Recent Vitals: Last Vital Signs Temp 97.5 F L 03/26/19 08:15 Pulse 59 03/26/19 09:40 Resp 22 03/26/19 09:40 BP 134/65 03/26/19 09:40 Pulse Ox 97 03/26/19 09:40 H&P (including ROS) documented in medical record: Yes Dietary Status: NPO after Midnight ASA Classification *see protocol: CLASS III-Severe systemic disease Plan of Care: Pt appropriate candidate for procedure/moderate/conscious sedation, Risks/benefits of procedure/sedation discussed w/ patient/family
--- NOTE | 2019-03-26 12:04 | AcuteCareSurgery Progress Note ---
Date of Encounter: 03/26/19 Time of Encounter: 12:00 - Assessment and Plan (1) GI bleed Current Visit: Yes Status: Acute 88M admitted with LGIB and syncope; now s/p EGD colonoscopy with evidence of gastritis and diverticulosis respectively; bleeding most likely from the diverticulosis throughout the colon; no evidence of bleeding; h/h stable and improved without tranfusion while admitted; no further episodes of bleeding; diet as tolerated PPI for gastritis high fiber diet/increase dietary fiber; metamucil BID no need for another colonoscopy EVER unless clinical status determines otherwise cares per primary team; general surgery will sign off, but if there are new questions or concerns, please call back Qualifiers: GI bleed type/associated pathology: anorectal hemorrhage Qualified Code(s): K62.5 - Hemorrhage of anus and rectum Subjective Patient reports: no new complaints, feels better, afebrile Objective Vital Signs - Last 8 Hours Temp Pulse Resp BP Pulse Ox 03/26/19 11:00 44 17 160/74 100 03/26/19 10:00 58 27 156/63 95 03/26/19 09:40 59 22 134/65 97 03/26/19 08:37 55 18 173/77 99 03/26/19 08:15 97.5 F L 03/26/19 07:53 44 03/26/19 07:00 44 18 126/53 97 03/26/19 06:00 49 18 147/68 98 03/26/19 05:00 59 17 130/68 97 03/26/19 04:40 97.4 F L Intake and Output 03/25/19 03/26/19 03/26/19 23:59 07:59 15:59 Intake Total 100 / 1150 200 / 300 100 / 300 Output Total 850 / 850 275 / 275 Balance -750 / 300 200 / 25 -175 / 25 Intake: IV Fluids 100 / 100 200 / 300 100 / 300 Protonix 40 MG In 0.9 % Sodium 100 / 100 200 / 300 100 / 300 Chloride (Mini-Bag +) 100 ML @ 20 mls/hr IVC .Q5H [facility] Rx#: [id number] Oral 0 / 0 Output: Urine 850 / 850 275 / 275 Other: Stool Size Moderate Stool Consistency liquid # Bowel Movements 1 3 Weight 66.7 kg Patient Weight 03/26/19 23:59 Weight 66.7 kg - General physical appearance no distress - Respiratory normal expansion, normal respiratory effort - Cardiovascular Cardiovascular exam: Present: RRR - Abdomen Abdomen: Present: soft, non tender - Integumentary no rash - Neurologic CN 2-12 grossly intact - Musculoskeletal normal posture - Psychiatric oriented to time, oriented to person, oriented to place - Labs 03/26/19 00:38 03/26/19 00:38 Diabetes panel 03/25/19 03/26/19 Range/Units 12:00 00:38 Sodium 137 142 (136-145) mEq/L Potassium 4.1 3.4 L (3.5-5.1) mEq/L Chloride 105 110 H (98-107) mEq/L Carbon Dioxide 29 26 (23-29) mEq/L BUN 24 H 16 (8-23) mg/dL Creatinine 1.29 1.04 (0.70-1.30) mg/dL Glucose 109 H 118 H (70-105) mg/dL Calcium 8.4 L 8.4 L (8.6-10.3) mg/dL Calcium panel 03/25/19 03/26/19 Range/Units 12:00 00:38 Calcium 8.4 L 8.4 L (8.6-10.3) mg/dL Pituitary panel 03/25/19 03/26/19 Range/Units 12:00 00:38 Sodium 137 142 (136-145) mEq/L Potassium 4.1 3.4 L (3.5-5.1) mEq/L Chloride 105 110 H (98-107) mEq/L Carbon Dioxide 29 26 (23-29) mEq/L BUN 24 H 16 (8-23) mg/dL Creatinine 1.29 1.04 (0.70-1.30) mg/dL Glucose 109 H 118 H (70-105) mg/dL Calcium 8.4 L 8.4 L (8.6-10.3) mg/dL Adrenal panel 03/25/19 03/26/19 Range/Units 12:00 00:38 Sodium 137 142 (136-145) mEq/L Potassium 4.1 3.4 L (3.5-5.1) mEq/L Chloride 105 110 H (98-107) mEq/L Carbon Dioxide 29 26 (23-29) mEq/L BUN 24 H 16 (8-23) mg/dL Creatinine 1.29 1.04 (0.70-1.30) mg/dL Glucose 109 H 118 H (70-105) mg/dL Calcium 8.4 L 8.4 L (8.6-10.3) mg/dL Consult Discharge Plan - Plan Referrals: NONE,PCP [Primary Care Provider] -
[2019-03-26] MEDS ORDERED: Acetaminophen 325 MG TABLET PO PRN (14:50)
[2019-03-26] MEDS ORDERED: Naloxone 0.4 MG/ML INJ IVP PRN (14:50)
--- NOTE | 2019-03-26 14:52 | Anesthesia Evaluation Post Op ---
Date of Encounter: 03/26/19 Time of Encounter: 09:40 - Discharge PostOp Status: Transfer Patient to floor (Patient's vital signs have been reviewed. Patient is stable postoperatively and has adequately recovered from anesthesia. Patient is determined to have stable airway patency and respiratory function including respiratory rate and oxygen saturation. Patient has a stable heart rate, blood pressure and adequate hydration. Patients mental status is acceptable. Patients temperature is appropriate. Pain and nausea are adequately controlled)
--- NOTE | 2019-03-26 15:14 | Internal Med Progress Note ---
Hospitalist Progress Note - Encounter Date of Encounter: 03/26/19 Time of Encounter: 14:00 - Subjective Interval History: Mr Fatima is status post EGD which was unrevealing with the exception of chronic gastritis, colonoscopy which revealed diverticulosis in the sigmoid colon, transverse colon and ascending colon. He denies any more episodes of hematochezia. Was notified by nurse that patient went into Afib RVR. GEN: Denies fever, chills or malaise HEENT: Denies headache blurriness, or dysphagia RESP: Denies SOB or cough CV: Denies chest pain or palpitations GI: Denies Nausea, vomiting, diarrhea or constipation Reviewed current in hospital medications with modifications see orders Reviewed Routine labs - Exam Vitals: Temp Pulse Resp BP Pulse Ox 97.3 F L 70 25 160/69 96 03/26/19 12:15 03/26/19 14:00 03/26/19 14:00 03/26/19 14:00 03/26/19 14:00 Exam: GEN: NAD, A&O x 3, Pleasant and conversant, , son and [id number] were at his bedside SKIN: [place] warm acyanotic not jaundice HEART: RRR, no murmurs LUNGS: Somewhat diminished but appears CTA no wheeze or crackles, overall non labored ABDOMEN; Soft, non tender or distended, BS x 4 normactive EXT: No LE edema, Pedal pulses 1+, radial pulses 2+ PSYCH: Mood and affect is appropriate - Assessment and Plan (1) Atrial fibrillation with RVR Current Visit: Yes Status: Acute Assessment and Plan: Was notified by nurse that patient has reverted to atrial fibrillation with rapid ventricular response. He is asymptomatic on exam. She stated he was on his sotalol. Metoprolol 5 mg ordered stat, plan to use metoprolol 5 mg IV every 6 to keep pulse on the 110. Due to him being on sotalol hesitant in using diltiazem with concerns for complete heart block. Given his recent GI bleed anticoagulation is contraindicated. We will hold off on Plavix and aspirin and decide on restarting tomorrow if his hemoglobin is stable and no episodes of hematochezia (2) GI bleed Current Visit: Yes Status: Acute Assessment and Plan: status post EGD which was unrevealing with the exception of chronic gastritis, colonoscopy which revealed diverticulosis in the sigmoid colon, transverse colon and ascending colon. He denies any more episodes of hematochezia. Given the extensiveness of his diverticulosis this is most likely diverticular bleed, complicated by his antiplatelet therapy. He denies any straining with bowel movement. We will start him on MiraLAX daily, says this is his first occurrence he is antiplatelet therapy my needs to be readdressed if this becomes a frequent occurrence providers a stable hemoglobin is stable at 13.9 (3) Chronic respiratory failure with hypoxia Current Visit: Yes Status: Chronic Assessment and Plan: Stable O2 sat 96% at 2 L (4) Paroxysmal atrial fibrillation Current Visit: Yes Status: Acute Assessment and Plan: Patient is up to develop atrial fibrillation with rapid ventricular response see plan as above not on anticoagulation but he is on dual antiplatelet therapy will continue to hold today if hemoglobin is stable we will restart tomorrow (5) Chronic silicosis Current Visit: No Status: Chronic Assessment and Plan: Stable on chronic continue oxygen therapy (6) Coronary artery disease Current Visit: Yes Status: Acute Assessment and Plan: Plavix is currently on hold due to his presentation with hematochezia, discussed with patient, his son and [id number] about the risk and benefits of antiplatelet therapy. Continue losartan, beta sheron with metoprolol for now DVT Prophylaxis: Continue SCDs" anticoagulation therapy is contraindicated given his likely diverticular bleed - Time Spent with Patient Total time spent is greater than 50% in coordination of care (as documented) at patient's floor/unit and/or counseling patient: Plan of Care Discussed with: nurse Internal Medicine: Result - Labs CBC & Chem 7: 03/26/19 00:38 03/26/19 00:38 Labs: Short CBC 03/25/19 03/26/19 Range/Units 18:37 00:38 WBC 7.8 (4.3-11.1) K/mcL Hgb 15.2 13.9 (12.9-16.9) g/dL Hct 46.7 43.2 (37.5-50.1) % Plt Count 175 (140-400) K/mcL Neutrophils # 4.1 (1.6-8.9) K/mcL BMP 03/26/19 00:38 Sodium 142 Potassium 3.4 L Chloride 110 H Carbon Dioxide 26 BUN 16 Creatinine 1.04 Glucose 118 H Calcium 8.4 L - ABG Interpretation ABG results: PT/INR, D-dimer PT 12.3 Seconds (9.4-12.1) H 03/25/19 12:00 Consult Discharge Plan - Plan Referrals: NONE,PCP [Non-Partnered Physician] - (2) GI bleed Qualifiers: GI bleed type/associated pathology: anorectal hemorrhage Qualified Code(s): K62.5 - Hemorrhage of anus and rectum (6) Coronary artery disease Qualifiers: Coronary Disease-Associated Artery/Lesion type: unspecified vessel or lesion type [place] vs. transplanted heart: [place] heart Associated angina: without angina Qualified Code(s): I25.10 - Atherosclerotic heart disease of [place] coronary artery without angina pectoris
[2019-03-26] MEDS ORDERED: *HR* Metoprolol 5 MG/5 ML VIAL IVP ONE ×2 (15:21→15:25)
[2019-03-26] MEDS ORDERED: *HR* Metoprolol 5 MG/5 ML VIAL IVP PRN (15:30)
[2019-03-26] MEDS: clonazePAM 0.5 MG TABLET PO SCH (21:09)
[2019-03-27] MEDS ORDERED: 0.9 % Sodium Chloride 500 ML IVC ONE (01:28)
[2019-03-27 05:57] LABS: Basophils # 0.1 K/mcL (0.0-0.2); Basophils % 0.6 %; Eosinophils # 0.2 K/mcL (0.0-0.6); Eosinophils % 1.9 %; Hematocrit 38.8 % (37.5-50.1); Immature Granulocytes % 0.5 % (0-4); Lymphocytes # 3.7 K/mcL (0.6-4.6); Lymphocytes % 34.2 %; Mean Corpuscular HGB Conc 31.4 g/dL (31.6-35.5); Mean Corpuscular Hemoglobin 30.1 pg (28.0-33.3); Mean Corpuscular Volume 95.8 fL (83.0-100.0); Mean Platelet Volume 10.7 fL (9.4-12.4); Monocytes # 1.4 K/mcL (0.0-1.3); Monocytes % 13.3 %; Neutrophils # 5.3 K/mcL (1.6-8.9); Platelet Count 177 K/mcL (140-400); Red Blood Count 4.05 M/mcL (4.19-5.50); Red Cell Distribution Width 14.6 % (11.5-14.5); Segmented Neutrophils % 49.5 %; White Blood Count 10.8 K/mcL (4.3-11.1)
[2019-03-27 05:58] LABS: Hemoglobin 12.2 g/dL (12.9-16.9)
[2019-03-27 06:17] LABS: Potassium 3.7 mEq/L (3.5-5.1)
[2019-03-27 06:18] LABS: Calcium 8.4 mg/dL (8.6-10.3); Magnesium 1.9 mg/dL (1.6-2.6)
[2019-03-27] MEDS: Finasteride 5 MG TABLET PO SCH (07:53)
[2019-03-27] MEDS ORDERED: amLODIPine 5 MG TABLET PO SCH (09:00)
--- NOTE | 2019-03-27 11:15 | Electrocardiograph Report ---
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
--- NOTE | 2019-03-27 11:25 | Internal Med Progress Note ---
Hospitalist Progress Note - Encounter Date of Encounter: 03/27/19 Time of Encounter: 11:19 - Subjective Interval History: Mr Fatima reports no BM as such could not confirm or refute any more episodes of hematochezia. He self converted from his atrial ablation with rapid ventricular response which was sustained fall over 3 hours at a rate of 130s to 140s. He was administered 7.5 mg total of IV metoprolol and this morning he is now bradycardia with heart rate relief from 40s to 50s although he has is symptomatic GEN: Denies fever, chills or malaise HEENT: Denies headache blurriness, or dysphagia RESP: Denies SOB or cough CV: Denies chest pain or palpitations GI: Denies Nausea, vomiting, diarrhea or constipation Reviewed current in hospital medications with modifications see orders Reviewed Routine labs - Exam Vitals: Temp Pulse Resp BP Pulse Ox 98.4 F 45 16 87/46 98 03/27/19 07:59 03/27/19 10:00 03/27/19 10:00 03/27/19 10:00 03/27/19 10:00 Exam: GEN: NAD, A&O x 3, Pleasant and conversant SKIN: [place] warm acyanotic not jaundice, thin dry fragile HEART: RRR, no murmurs LUNGS: Somewhat diminished but appears CTA no wheeze or crackles, overall non labored ABDOMEN; Soft, non tender or distended, BS x 4 normactive EXT: No LE edema, Pedal pulses 1+, radial pulses 2+ PSYCH: Mood and affect is appropriate - Assessment and Plan (1) Sinus bradycardia Current Visit: Yes Status: Acute Assessment and Plan: Patient is today bradycardic, he only received 7.5 mg of metoprolol IV in addit ion to his sotalol 40 mg twice a day orally due to him presenting with atrial fibrillation with rapid ventricular response with rates ranging from 130 to 140 assistance for 3 hours. This morning he is now bradycardia ranging from 40s to 50s. We will treat with a one-time dose of glucagon 3mg due to concern for beta sheron toxicity. (2) Atrial fibrillation with RVR Current Visit: Yes Status: Acute Assessment and Plan: Patient self converted yesterday evening around 7:00 and today he has sinus bra dycardia which is attributed to patient being sensitive to beta blockade. Hemoglobin is stable 13.9 yesterday to 12.2 today likely equilibration. He is not had any more episodes of hematochezia. We will restart Plavix tomorrow as long as his hemoglobin is stable and no more episode of hematochezia due to his increase cardiovascular risk however will discontinue aspirin patient is not to be ideal candidate for dual antiplatelet therapy given his significant diverticular disease in the transverse ascending and descending colon. Was notified by nurse that patient has reverted to atrial fibrillation with rapid ventricular response. He is asymptomatic on exam. She stated he was on his sotalol. Metoprolol 5 mg ordered stat, plan to use metoprolol 5 mg IV every 6 to keep pulse on the 110. Due to him being on sotalol hesitant in using diltiazem with concerns for complete heart block. Given his recent GI bleed anticoagulation is contraindicated. (3) GI bleed Current Visit: Yes Status: Acute Assessment and Plan: Hg stable denies any further episodes status post EGD which was unrevealing with the exception of chronic gastritis, colonoscopy which revealed diverticulosis in the sigmoid colon, transverse colon and ascending colon. He denies any more episodes of hematochezia. Given the extensiveness of his diverticulosis this is most likely diverticular bleed, complicated by his antiplatelet therapy. He denies any straining with bowel movement. We will start him on MiraLAX daily, says this is his first occurrence he is antiplatelet therapy my needs to be readdressed if this becomes a frequent occurrence providers a stable hemoglobin is stable at 13.9 (4) Chronic respiratory failure with hypoxia Current Visit: Yes Status: Chronic Assessment and Plan: Stable O2 sat 98% at 2 L (5) Paroxysmal atrial fibrillation Current Visit: Yes Status: Acute Assessment and Plan: Patient is up to develop atrial fibrillation with rapid ventricular response see plan as above (6) Chronic silicosis Current Visit: No Status: Chronic Assessment and Plan: Stable on chronic continue oxygen therapy (7) Coronary artery disease Current Visit: Yes Status: Acute Assessment and Plan: Plavix will be restarted tomorrow as long as his hemoglobin is stable and he has no more episode of hematochezia. Would discontinue aspirin as his longer considered ideal candidate for dual antiplatelet therapy due to his severe diverticulosis. Yesterday discussed with patient, his son and [id number] about the risk and benefits of antiplatelet therapy. Hold losartan hypotensive with worsening serum creatinine DVT Prophylaxis: SCDs - Time Spent with Patient Total time spent is greater than 50% in coordination of care (as documented) at patient's floor/unit and/or counseling patient: Internal Medicine: Result - Labs CBC & Chem 7: 03/27/19 04:46 03/27/19 04:46 Labs: Short CBC 03/27/19 Range/Units 04:46 WBC 10.8 (4.3-11.1) K/mcL Hgb 12.2 L D (12.9-16.9) g/dL Hct 38.8 (37.5-50.1) % Plt Count 177 (140-400) K/mcL Neutrophils # 5.3 (1.6-8.9) K/mcL BMP 03/27/19 04:46 Sodium 141 Potassium 3.7 Chloride 106 Carbon Dioxide 26 BUN 17 Creatinine 1.37 H Glucose 87 Calcium 8.4 L - ABG Interpretation ABG results: PT/INR, D-dimer PT 12.3 Seconds (9.4-12.1) H 03/25/19 12:00 Consult Discharge Plan - Plan Referrals: NONE,PCP [Non-Partnered Physician] - (3) GI bleed Qualifiers: GI bleed type/associated pathology: anorectal hemorrhage Qualified Code(s): K62.5 - Hemorrhage of anus and rectum (7) Coronary artery disease Qualifiers: Coronary Disease-Associated Artery/Lesion type: unspecified vessel or lesion type [place] vs. transplanted heart: [place] heart Associated angina: without angina Qualified Code(s): I25.10 - Atherosclerotic heart disease of [place] coronary artery without angina pectoris
[2019-03-27] MEDS: 0.9 % Sodium Chloride 1,000 ML IVC SCH (12:01)
[2019-03-27] MEDS: clonazePAM 0.5 MG TABLET PO SCH (20:28)
[2019-03-27] MEDS ORDERED: Ondansetron 4 MG/2 ML VIAL IVP PRN (22:15)
[2019-03-28 05:56] LABS: Basophils % 0.5 %; Eosinophils # 0.3 K/mcL (0.0-0.6); Eosinophils % 3.4 %; Hematocrit 38.2 % (37.5-50.1); Hemoglobin 12.1 g/dL (12.9-16.9); Immature Granulocytes % 0.7 % (0-4); Lymphocytes # 2.2 K/mcL (0.6-4.6); Lymphocytes % 29.4 %; Mean Corpuscular HGB Conc 31.7 g/dL (31.6-35.5); Mean Corpuscular Hemoglobin 30.5 pg (28.0-33.3); Mean Corpuscular Volume 96.2 fL (83.0-100.0); Mean Platelet Volume 10.1 fL (9.4-12.4); Monocytes # 1.1 K/mcL (0.0-1.3); Monocytes % 14.5 %; Neutrophils # 3.9 K/mcL (1.6-8.9); Platelet Count 151 K/mcL (140-400); Red Blood Count 3.97 M/mcL (4.19-5.50); Red Cell Distribution Width 14.2 % (11.5-14.5); Segmented Neutrophils % 51.5 %; White Blood Count 7.6 K/mcL (4.3-11.1)
[2019-03-28 06:12] LABS: BUN/Creatinine Ratio 15 (6-26); Blood Urea Nitrogen 20 mg/dL (8-23); Calcium 8.5 mg/dL (8.6-10.3); Carbon Dioxide 28 mEq/L (23-29); Chloride 106 mEq/L (98-107); Glucose 107 mg/dL (70-105); Magnesium 1.9 mg/dL (1.6-2.6); Osmolality,Calculated 291 (280-300); Potassium 3.7 mEq/L (3.5-5.1); Sodium 139 mEq/L (136-145); eGFR For African Americans > 60 (> 60); eGFR For Non-African Americans 51 (> 60)
[2019-03-28] MEDS: 0.9 % Sodium Chloride 1,000 ML IVC SCH (06:57)
[2019-03-28] MEDS: Finasteride 5 MG TABLET PO SCH (08:08)
[2019-03-28] MEDS ORDERED: *HR* Metoprolol 5 MG/5 ML VIAL IVP ONE ×2 (09:44→09:46)
--- NOTE | 2019-03-28 11:27 | Internal Med Progress Note ---
Hospitalist Progress Note - Encounter Date of Encounter: 03/28/19 Time of Encounter: 11:19 - Subjective Interval History: Mr Fatima reverted back to Afib with RVR this am and was complaining of palpitations. He has had no more episodes hematochezia however has been having loose stools. The case management team the patient already has [facility], not clear if patient revoked his hospice to be admitted. Anticipate discharge tomorrow GEN: Denies fever, chills or malaise HEENT: Denies headache blurriness, or dysphagia RESP: Denies SOB or cough CV: Denies chest pain reports palpitations GI: Denies Nausea, vomiting, or constipation Reviewed current in hospital medications with modifications see orders Reviewed Routine labs - Exam Vitals: Temp Pulse Resp BP Pulse Ox 98.1 F 88 18 120/73 96 03/28/19 08:12 03/28/19 11:00 03/28/19 11:00 03/28/19 11:00 03/28/19 11:00 Exam: GEN: NAD, A&O x 3, Pleasant and conversant SKIN: [place] warm acyanotic not jaundice, thin dry fragile HEART: Irregularly irregular rate and rhythm, no murmurs LUNGS: Somewhat diminished but appears CTA no wheeze or crackles, overall non labored ABDOMEN; Soft, non tender or distended, BS x 4 normactive EXT: No LE edema, Pedal pulses 1+, radial pulses 2+ PSYCH: Mood and affect is appropriate - Assessment and Plan (1) Sinus bradycardia Current Visit: Yes Status: Acute Assessment and Plan: Resolved he is now back in atrial fib RVR, he is very sensitive to beta blockage. It appears patient has [facility] hospice as such may not be an ideal candidate for pacemaker he only received 7.5 mg of metoprolol IV in addition to his sotalol 40 mg twice a day orally due to him presenting with atrial fibrillation with rapid ventricular response with rates ranging from 130 to 140 assistance for 3 hours. This morning he is now bradycardia ranging from 40s to 50s. We will treat with a one-time dose of glucagon 3mg due to concern for beta sheron toxicity. (2) Atrial fibrillation with RVR Current Visit: Yes Status: Acute Assessment and Plan: back to atria fibrillation with rapid ventricular response and this time symptomatically with palpitations sensation. We will resume his sotalol 40 mg twice a day he was given a small dose of metoprolol 2.5 mg which he is now rate controlled. It appears patient was a [facility] hospice as such pacemaker is not an option Patient self converted yesterday evening around 7:00 and today he has sinus bradycardia which is attributed to patient being sensitive to beta blockade. Hemoglobin is stable 13.9 yesterday to 12.2 today likely equilibration. He is not had any more episodes of hematochezia. We will restart Plavix tomorrow as long as his hemoglobin is stable and no more episode of hematochezia due to his increase cardiovascular risk however will discontinue aspirin patient is not to be ideal candidate for dual antiplatelet therapy given his significant diver ticular disease in the transverse ascending and descending colon. Was notified by nurse that patient has reverted to atrial fibrillation with rapid ventricular response. He is asymptomatic on exam. She stated he was on his sotalol. Metoprolol 5 mg ordered stat, plan to use metoprolol 5 mg IV every 6 to keep pulse on the 110. Due to him being on sotalol hesitant in using diltiazem with concerns for complete heart block. Given his recent GI bleed anticoagulation is contraindicated. (3) GI bleed Current Visit: Yes Status: Acute Assessment and Plan: Hg stable denies any further episodes status post EGD which was unrevealing with the exception of chronic gastritis, colonoscopy which revealed diverticulosis in the sigmoid colon, transverse colon and ascending colon. He denies any more episodes of hematochezia. Given the extensiveness of his diverticulosis this is most likely diverticular bleed, complicated by his antiplatelet therapy. He denies any straining with bowel movement. We will start him on MiraLAX daily, says this is his first occurrence he is antiplatelet therapy my needs to be readdressed if this becomes a frequent occurrence providers a stable hemoglobin is stable at 13.9 (4) Chronic respiratory failure with hypoxia Current Visit: Yes Status: Chronic Assessment and Plan: Stable O2 sat 98% at 2 L (5) Paroxysmal atrial fibrillation Current Visit: Yes Status: Acute Assessment and Plan: Patient atrial fibrillation with rapid ventricular response see plan as above (6) Chronic silicosis Current Visit: No Status: Chronic Assessment and Plan: Stable on chronic able to wean off oxygen therapy (7) Coronary artery disease Current Visit: Yes Status: Acute Assessment and Plan: Plavix restarted. his hemoglobin is stable and he has no more episode of hematochezia. Would discontinue aspirin as his longer considered ideal candidate for dual antiplatelet therapy due to his severe diverticulosis. Yesterday discussed with patient, his son and [id number] about the risk and benefits of antiplatelet therapy. Hold losartan hypotensive with worsening serum creatinine DVT Prophylaxis: SCDs - Time Spent with Patient Total time spent is greater than 50% in coordination of care (as documented) at patient's floor/unit and/or counseling patient: Internal Medicine: Result - Labs CBC & Chem 7: 03/28/19 05:20 03/28/19 05:20 Labs: Short CBC 03/28/19 Range/Units 05:20 WBC 7.6 (4.3-11.1) K/mcL Hgb 12.1 L (12.9-16.9) g/dL Hct 38.2 (37.5-50.1) % Plt Count 151 (140-400) K/mcL Neutrophils # 3.9 (1.6-8.9) K/mcL BMP 03/28/19 05:20 Sodium 139 Potassium 3.7 Chloride 106 Carbon Dioxide 28 BUN 20 Creatinine 1.33 H Glucose 107 H Calcium 8.5 L - ABG Interpretation ABG results: PT/INR, D-dimer PT 12.3 Seconds (9.4-12.1) H 03/25/19 12:00 Consult Discharge Plan - Plan Referrals: NONE,PCP [Non-Partnered Physician] - (3) GI bleed Qualifiers: GI bleed type/associated pathology: anorectal hemorrhage Qualified Code(s): K62.5 - Hemorrhage of anus and rectum (7) Coronary artery disease Qualifiers: Coronary Disease-Associated Artery/Lesion type: unspecified vessel or lesion type [place] vs. transplanted heart: [place] heart Associated angina: without angina Qualified Code(s): I25.10 - Atherosclerotic heart disease of [place] coronary artery without angina pectoris
[2019-03-28] MEDS: clonazePAM 0.5 MG TABLET PO SCH (20:11)
[2019-03-29] MEDS: Finasteride 5 MG TABLET PO SCH (07:50)
[2019-03-29 12:00] LABS: Hemoglobin 12.4 g/dL (12.9-16.9); Mean Corpuscular HGB Conc 31.8 g/dL (31.6-35.5); Mean Corpuscular Hemoglobin 30.2 pg (28.0-33.3); Mean Corpuscular Volume 95.1 fL (83.0-100.0); Mean Platelet Volume 10.2 fL (9.4-12.4); Platelet Count 157 K/mcL (140-400); Red Cell Distribution Width 14.3 % (11.5-14.5); White Blood Count 7.7 K/mcL (4.3-11.1)
[2019-03-29 12:20] LABS: Alanine Aminotransferase 20 Units/L (7-52); Albumin 2.7 g/dL (3.5-5.7); Albumin/Globulin Ratio 0.6 (1.1-2.2); Alkaline Phosphatase 72 Units/L (34-104); Aspartate Amino Transferase 29 Units/L (13-39); BUN/Creatinine Ratio 13 (6-26); Bilirubin,Total 0.4 mg/dL (0.3-1.0); Blood Urea Nitrogen 15 mg/dL (8-23); Calcium 8.8 mg/dL (8.6-10.3); Carbon Dioxide 33 mEq/L (23-29); Chloride 102 mEq/L (98-107); Globulin 4.4 g/dL (2.4-3.5); Glucose 131 mg/dL (70-105); Osmolality,Calculated 291 (280-300); Potassium 4.3 mEq/L (3.5-5.1); Sodium 139 mEq/L (136-145); Total Protein 7.1 g/dL (6.4-8.9); eGFR For African Americans > 60 (> 60); eGFR For Non-African Americans > 60 (> 60)
--- NOTE | 2019-03-29 12:30 | Internal Med Progress Note ---
Hospitalist Progress Note - Encounter Date of Encounter: 03/29/19 Time of Encounter: 12:17 - Subjective Interval History: the patient was seen and examined at bedside denies CP or SOB denies rectal bleeding HR looks under control but irregular patient does not sure he wants resume hospice or not, will call his son to verify - Exam Vitals: Temp Pulse Resp BP Pulse Ox 97.7 F 58 15 142/60 98 03/29/19 12:01 03/29/19 12:03/29/19 12:03/29/19 12:03/29/19 12:01 Exam: GEN: NAD, Alert and awake , Pleasant and conversant SKIN: [place] warm acyanotic not jaundice, thin dry fragile HEART: Irregularly irregular rate and rhythm, no murmurs LUNGS: Somewhat diminished but appears CTA no wheeze or crackles, overall non labored ABDOMEN; Soft, non tender or distended, BS x 4 normactive EXT: No LE edema, Pedal pulses 1+, radial pulses 2+ PSYCH: Mood and affect is appropriate DVT Prophylaxis: SCDs - Summary of Assessment and Plan Summary of Assessment and Plan: (1) bradycardia with intermittent tachyarrythemia : could be sick sinus syndrome Current Visit: Yes Status: Acute Assessment and Plan: now HR in range of 56-65, irregular on sotalol 40 mg bid order EKG consult medical assistant cardiology and spoke with medical assistant cardiology with recommend outpatient follow up given patient is asymptomatic and not in complete heart block on telemetry keel serum K above 4 and serum Mg above 2 check TSH patient was a [facility] hospice but interested to explore Rx options of cardiac arrhythmia (3) GI bleed Current Visit: Yes Status: Acute Assessment and Plan: Hg stable denies any further episodes status post EGD which was unrevealing with the exception of chronic gastritis, colonoscopy which revealed diverticulosis in the sigmoid colon, transverse colon and ascending colon. He denies any more episodes of hematochezia. Given the extensiveness of his diverticulosis this is most likely diverticular bleed,. He denies any straining with bowel movement. on MiraLAX daily, says this is his first occurrence he is antiplatelet therapy my needs to be readdressed if this becomes a frequent occurrence providers a stable hemoglobin is stable at 12.4 (4) Chronic respiratory failure with hypoxia Current Visit: Yes Status: Chronic Assessment and Plan: Stable O2 sat 98% at 2 L (5) Paroxysmal atrial fibrillation Current Visit: Yes Status: Acute Assessment and Plan: Patient atrial fibrillation with rapid ventricular response see plan as above (6) Chronic silicosis Current Visit: No Status: Chronic Assessment and Plan: Stable on chronic able to wean off oxygen therapy (7) Coronary artery disease Current Visit: Yes Status: Acute Assessment and Plan: Plavix restarted. his hemoglobin is stable and he has no more episode of hematochezia. Would discontinue aspirin as his longer considered ideal candidate for dual antiplatelet therapy due to his severe diverticulosis. GEORGINA: serum creatinine 1.3 today lab still pending check bladder scan to r/o retention - Time Spent with Patient Total time spent is greater than 50% in coordination of care (as documented) at patient's floor/unit and/or counseling patient: Internal Medicine: Result - Labs CBC & Chem 7: 03/29/19 11:32 03/28/19 05:20 Labs: Short CBC 03/29/19 Range/Units 11:32 WBC 7.7 (4.3-11.1) K/mcL Hgb 12.4 L (12.9-16.9) g/dL Hct 39.0 (37.5-50.1) % Plt Count 157 (140-400) K/mcL - ABG Interpretation ABG results: PT/INR, D-dimer PT 12.3 Seconds (9.4-12.1) H 03/25/19 12:00 Consult Discharge Plan - Plan Referrals: NONE,PCP [Non-Partnered Physician] -
--- NOTE | 2019-03-29 13:42 | Event Note ---
Date of Encounter: 03/29/19 Time of Encounter: 13:40 I spoke with patient son and explained to him in details concept of hospice and palliative care. at this point, patients son would like to talk with hospice team about available options also the son indicates that he wants patient evaluated for possible pace maker placement if this is necessary and recommended by medical billing coder i did consult medical billing coder
--- NOTE | 2019-03-29 15:41 | Cardiology Consult Note ---
<GhanshyamMelania J - Last Filed: 03/29/19 15:47> Date of Encounter: 03/29/19 Time of Encounter: 14:30 Assessment and Plan (1) GI bleed Current Visit: Yes Status: Acute Per cardiology: -Admitted with GI bleed. -Hemoglobin stable. -S/p EGD and colonoscopy, thought to be diverticular bleed. -Management per primary and GI services. Qualifiers: GI bleed type/associated pathology: anorectal hemorrhage Qualified Code(s): K62.5 - Hemorrhage of anus and rectum (2) Paroxysmal atrial fibrillation Current Visit: Yes Status: Chronic Per cardiology: -Known history of PAF, on sotalol. Patient had recurrence of a.fib this admission. -Oasu1hbqf score 3/4 (age1, HTN, prediabetes). Patient had not been on anticoagulation due to high falls risk, last fall January 2019. Of note, had been on plavix and ASA per PCP for a.fib. -Currently SB, HR 58. Denies dizziness, lightheadedness. No indication for pacemaker. -TTE 08/2018 with LVEF 60-65%. Mild left ventricular diastolic dysfunction. Mild-moderate aortic regurgitation. Mild-moderately thickened/calcified mitral leaflets, rheumatic in appearance. Bordeline evidence for mitral stenosis. MG 3 mmHg at 94 bpm Mild tricuspid regurgitation.Mild pulmonary hypertension by TR gradient. No segmental wall motion abnormalities noted. -With recurrence of a.fib and not on anticoagulation, recommend discontinuation of sotalol. Discussed at length with patient and family regarding anticoagulation and risk of CVA/embolic event. Patient and son state u nderstanding, however do not wish to start anticoagulation. -Will stop sotalol, Will start metoprolol, can titrate for HR control. Discussion w patient/family: The assessment and plan as outlined above was discussed with the patient and/or family members who expressed understanding and agreement. All questions were answered. Thank you for involving us in the care of your patient. Please call with any questions. Discussed and reviewed with History of Present Illness Consult date: 03/29/19 Requesting physician: Daniel Grey Consult reason: tachycardia Chief complaint: BRB per rectume History of present illness: Mr. Fatima is a 88 year old male with a relevant past medical history of PAF, anxiety, GERD, vertigo, melanoma, pulmonary fibrosis, HTN, prediabetes, who presented to [facility] with complaints of bright red blood per rectum. During hospital stay, patient was noted to have a.fib, RVR. Patient states he felt palpitations when his HR was elevated. Denies current palpitations. Denies increased shortness of breath. Denies chest pain. Denies dizziness, lightheadedness. Past Med Surg Social Fam HX - Past Medical History Attestation: Yes The following information was validated with the patient. Source: patient, old records reviewed Medical history: atrial fibrillation, COPD, coronary artery disease, hypertension Additional medical history: BPH Psychiatric history: anxiety - Past Surgical History Surgical History: cancer surgery, cholecystectomy, other Additional surgical history: melanoma removed from back. TURP - Social History Smoking Status: Former smoker Smokeless Tobacco Status: No Alcohol use: none Drug use: none - Family History Father Living Status: Hx Family Cancer: Yes Medications and Allergies Clopidogrel [Plavix] 75 mg PO DAILY 07/03/18 [History] Aspirin [Lo-Dose Aspirin EC] 81 mg PO HS 08/05/18 [History] clonazePAM [Clonazepam] 0.5 mg PO HS PRN 10/24/18 [History] Finasteride [Proscar] 5 mg PO DAILY 11/24/18 [History] Sotalol [Betapace] 40 mg PO Q12HR 11/24/18 [History] Tamsulosin [Flomax] 0.4 mg PO DAILY 11/24/18 [History] Acetaminophen [Non-Aspirin] 650 mg PO Q6H PRN 01/18/19 [History] Ipratropium [ATROVENT Inhaler] 1 puff PO QID 01/18/19 [History] Memantine HCl 10 mg PO BID 01/18/19 [History] Tiotropium [Spiriva] 1 puff PO DAILY 01/18/19 [History] Amoxicillin [Amoxil] 500 mg PO BID 03/28/19 [History] Furosemide [Lasix] 20 mg PO DAILY 03/28/19 [History] Mirtazapine [Remeron] 15 mg PO HS 03/28/19 [History] Potassium Chloride [K-Tab ER] 10 meq PO DAILY 03/28/19 [History] amLODIPine [Norvasc] 5 mg PO DAILY 03/28/19 [History] Allergy/AdvReac Type Severity Reaction Status Date / Time azithromycin [From Zithromax] Allergy Mild Hives Verified 01/18/19 08:06 fluticasone [From Flonase] AdvReac See Verified 01/18/19 08:06 Comments gabapentin AdvReac Headache Verified 01/18/19 08:06 All Systems Review: The remainder of the systems were reviewed and are negative - Cardiovascular Cardiovascular: as per HPI, palpitations - Gastrointestinal Gastrointestinal: hematochezia Physical Examination Vital Signs, Last 4 Hours Temp Pulse Resp BP Pulse Ox 03/29/19 12:01 97.7 F 58 15 142/60 98 General: Conversant, No Apparent Distress HEENT: Atraumatic, Normocephaly, Mucus Membranes Moist Neck: No JVD, Normal carotid pulses Cardiac: Reg Rate and Rhythm, Normal S1 and S2, No Murmur Lungs: Normal Breath Sounds, No Wheeze, Rales, Rhonchi Neuro: Alert and responsive, No focal deficits noted Abdomen: Soft, Non-Tender Skin: No rashes noted on visualized skin Musculoskeletal: No Chest Wall Tenderness Extremities: No Clubbing, No Cyanosis, No Edema, Normal Pulses Results 03/29/19 11:32 03/29/19 11:32 Lab Results Active Medications Acetaminophen (Tylenol) 650 mg PO Q6H PRN PRN Reason: Pain Stop: 09/24/19 14:16 Aspirin (Aspirin Ec) 81 mg PO DAILY [facility] Stop: 09/29/19 09:01 Clonazepam (Klonopin) 0.5 mg PO HS [facility] Stop: 09/24/19 21:01 Last Admin: 03/28/19 20:11 Dose: 0.5 mg Documented by: Finasteride (Proscar) 5 mg PO DAILY [facility]; Protocol Stop: 09/25/19 09:01 Last Admin: 03/29/19 07:50 Dose: 5 mg Documented by: Metoprolol Tartrate (Lopressor) 25 mg PO BID [facility] Stop: 09/28/19 21:01 Naloxone HCl (Narcan) 0.4 mg IVP Q2MPRN PRN PRN Reason: SEE COMMENTS Stop: 09/24/19 14:11 Omeprazole (Prilosec) 40 mg PO DAILY@0730 [facility]; Protocol Stop: 09/26/19 07:31 Last Admin: 07/24/19 07:49 Dose: 40 mg Documented by: Ondansetron HCl (Zofran) 4 mg IVP Q6HR PRN; Protocol PRN Reason: Nausea Stop: 09/26/19 22:16 Last Admin: 03/27/19 22:24 Dose: 4 mg Documented by: Polyethylene Glycol (Miralax) 17 gm PO DAILY PRN PRN Reason: Constipation Stop: 09/27/19 11:18 Quetiapine Fumarate (Seroquel) 50 mg PO HS MICHAEL Stop: 09/24/19 21:01 Last Admin: 03/28/19 20:13 Dose: Not Given Documented by: Tamsulosin HCl (Flomax) 0.4 mg PO DAILY MICHAEL; Protocol Stop: 09/25/19 09:01 Last Admin: 03/29/19 07:50 Dose: 0.4 mg Documented by: Laboratory Tests 03/29/19 03/29/19 03/29/19 11:32 11:32 12:32 Hgb 12.4 L Potassium 4.3 Creatinine 1.14 Magnesium 2.0 TSH 3.160 - Imaging and Cardiology Chest Xray: report reviewed Echo: report reviewed - EKG Interpretation EKG results cardiology: personally reviewed (ECG with a.fib RVR, HR 130.), other (Telemetry reviewed with average HR previous 12 hours noted to be 58, SB. PVCs, PACs noted.) Consult Discharge Plan - Plan Referrals: NONE,PCP [Non-Partnered Physician] - < A - Last Filed: 03/29/19 16:22> Date of Encounter: 03/29/19 - Attending Attestation I have personally performed a face to face evaluation on this patient. I have reviewed and agree with the documented findings and care plan as documented by the SENIOR ARCHITECTURAL DESIGNER. History and Exam by me shows: 88-year-old pleasant gentleman with history of A. fib not on anticoagulation because of fall risks, had a fall may be severe. Admitted for lower GI bleed, found to have diverticulosis on colonoscopy and chronic gastritis on upper GI endoscopy. Found to have A. fib with RVR yesterday, responded to IV metoprolol and currently in sinus rhythm. AAOX3 in NAD at the bedside Hemodynamically stable Cardiopulmonary exam revealed S1, S2, no murmur; clear lungs Rhythm reviewed - sinus rhythm, no acute ST T changes Echo preserved EF, borderline mild MS, mild AI Impression/plan: Afib with [id number] score of 4 and HAS-BLED score of 4 (high risk). Patient and son was at the bedside would like to hold off on anticoagulation at this time. Discussed possible consideration of left atrial appendage closure device, and he would like to think about it. Continue aspirin 81 mg daily. Discontinue Plavix. Discontinue sotalol as patient is not anticoagulated. Low-dose metoprolol may be appropriate. His heart rate is c urrently controlled in the 50s, but asymptomatic for bradycardia. No indication for pacemaker implantation at this time. If he desires to take anticoagulation, would recommend Coumadin. Thanks, Serafin Hobson MD [facility] Assessment and Plan Discussion w patient/family: The assessment and plan as outlined above was discussed with the patient and/or family members who expressed understanding and agreement. All questions were answered. Thank you for involving us in the care of your patient. Please call with any questions. History of Present Illness History of present illness: Mr. Fatima is a 88 year old male All Systems Review: The remainder of the systems were reviewed and are negative Results 03/29/19 11:32 03/29/19 11:32 Lab Results 03/29/19 03/29/19 03/29/19 11:32 11:32 12:32 WBC 7.7 Hgb 12.4 L Hct 39.0 Plt Count 157 Sodium 139 Potassium 4.3 Chloride 102 Carbon Dioxide 33 H BUN 15 Creatinine 1.14 Glucose 131 H Calcium 8.8 Magnesium 2.0 Total Bilirubin 0.4 AST 29 ALT 20 Alkaline Phosphatase 72 TSH 3.160
--- NOTE | 2019-03-29 15:56 | Electrocardiograph Report ---
[place] [id number] Test Date: 2019-03-29 Pat Name: Aleksandr Fatima Department: 111 Room: 2NE21 Gender: M Batter Scaler: : 1930 Requested By: Daniel Baker Order Number: [id number] Reading MD: Troy Jordan Measurements Intervals [place] Rate: 63 P: 52 W[place]: 188 QRS: 43 QRSD: 85 T: 77 QT: 449 QTc: 457 Interpretive Statements SINUS RHYTHM NONSPECIFIC T-WAVE ABNORMALITY Electronically Signed On 03-29-2019 15:54:22 EDT by Troy Jordan
[2019-03-29] MEDS: clonazePAM 0.5 MG TABLET PO SCH (20:41)
[2019-03-30 05:23] LABS: Hematocrit 39.3 % (37.5-50.1); Hemoglobin 12.4 g/dL (12.9-16.9); Mean Corpuscular HGB Conc 31.6 g/dL (31.6-35.5); Mean Corpuscular Hemoglobin 30.2 pg (28.0-33.3); Mean Corpuscular Volume 95.6 fL (83.0-100.0); Mean Platelet Volume 10.1 fL (9.4-12.4); Platelet Count 171 K/mcL (140-400); Red Blood Count 4.11 M/mcL (4.19-5.50); Red Cell Distribution Width 13.9 % (11.5-14.5); White Blood Count 6.8 K/mcL (4.3-11.1)
[2019-03-30 05:49] LABS: Alanine Aminotransferase 24 Units/L (7-52); Albumin 2.7 g/dL (3.5-5.7); Albumin/Globulin Ratio 0.6 (1.1-2.2); Alkaline Phosphatase 81 Units/L (34-104); Aspartate Amino Transferase 29 Units/L (13-39); BUN/Creatinine Ratio 15 (6-26); Bilirubin,Total 0.4 mg/dL (0.3-1.0); Blood Urea Nitrogen 15 mg/dL (8-23); Calcium 8.8 mg/dL (8.6-10.3); Carbon Dioxide 32 mEq/L (23-29); Chloride 102 mEq/L (98-107); Globulin 4.5 g/dL (2.4-3.5); Glucose 95 mg/dL (70-105); Osmolality,Calculated 287 (280-300); Phosphorous 2.7 mg/dL (2.7-4.5); Potassium 3.9 mEq/L (3.5-5.1); Sodium 138 mEq/L (136-145); Total Protein 7.2 g/dL (6.4-8.9); eGFR For African Americans > 60 (> 60); eGFR For Non-African Americans > 60 (> 60)
[2019-03-30 07:41] VITALS: BP 157/72
[2019-03-30] MEDS: Finasteride 5 MG TABLET PO SCH (07:48)
[2019-03-30] MEDS ORDERED: Aspirin Enteric Coated 81 MG Tablet PO SCH (09:00)
--- NOTE | 2019-03-30 11:03 | Discharge Summary ---
Date of Encounter: 03/30/19 Time of Encounter: 10:57 - Discharge Diagnosis (1) GI bleed Priority: Primary Status: Acute Assessment and Plan: (1) bradycardia with intermittent tachyarrythemia : could be sick sinus syndrome Current Visit: Yes Status: Acute Assessment and Plan: now HR in range of 56-65, irregular on sotalol 40 mg bid order EKG consult grade teacher and spoke with grade teacher with recommend outpatient follow up given patient is asymptomatic and not in complete heart block on telemetry keel serum K above 4 and serum Mg above 2 check TSH patient was a [facility] but interested to explore Rx options of cardiac arrhythmia (3) GI bleed Current Visit: Yes Status: Acute Assessment and Plan: Hg stable denies any further episodes status post EGD which was unrevealing with the exception of chronic gastritis, colonoscopy which revealed diverticulosis in the sigmoid colon, transverse colon and ascending colon. He denies any more episodes of hematochezia. Given the extensiveness of his diverticulosis this is most likely diverticular bleed,. He denies any straining with bowel movement. on MiraLAX daily, says this is his first occurrence he is antiplatelet therapy my needs to be readdressed if this becomes a frequent occurrence providers a stable hemoglobin is stable at 12.4 (4) Chronic respiratory failure with hypoxia Current Visit: Yes Status: Chronic Assessment and Plan: Stable O2 sat 98% at 2 L (5) Paroxysmal atrial fibrillation Current Visit: Yes Status: Acute Assessment and Plan: Patient atrial fibrillation with rapid ventricular response see plan as above (6) Chronic silicosis Current Visit: No Status: Chronic Assessment and Plan: Stable on chronic able to wean off oxygen therapy (7) Coronary artery disease Current Visit: Yes Status: Acute Assessment and Plan: Plavix restarted. his hemoglobin is stable and he has no more episode of hematochezia. Would discontinue aspirin as his longer considered ideal candidate for dual antiplatelet therapy due to his severe diverticulosis. Qualifiers: GI bleed type/associated pathology: anorectal hemorrhage Qualified Code(s): K62.5 - Hemorrhage of anus and rectum Hospital course: Mr. Fatima is a 88 year old male with history of atrial fibrillation not on oral anticoagulation history of chronic respiratory failure secondary to COPD history of hypertension and history of coronary artery disease on aspirin and Plavix, patient was admitted because of rectal bleeding, underwent EGD which was unrevealing with the exception of chronic gastritis also underwent colonoscopy which revealed diverticulosis in the sigmoid colon and transverse colon and ascending colon. Hemoglobin stable at time of discharge on patient denied further episode of rectal bleeding. Recommend to continue on aspirin and hold Plavix., I discussed with grade teacher Also the patient developed A. fib with RVR during hospitalist stay alternating with sinus bradycardia, grade teacher was consulted who recommended starting on metoprolol 25 mg twice a day and discontinue sotalol due to recurrence of the A. fib and the patient not on anticoagulation because of the high risk. Also recommend follow up as outpatient with the grade teacher for possible watchman device placement for LLA closure follow up with PCP in 1 week discussed with patient and his son in details - Time Spent with Patient Total time spent providing and/or coordinating discharge services: 35 min - Discharge Medications Prescriptions: New Metoprolol [Lopressor] 25 mg PO BID #60 tablet Continued Aspirin [Lo-Dose Aspirin EC] 81 mg PO HS Acetaminophen [Non-Aspirin] 650 mg PO Q6H PRN PRN Reason: Pain Memantine HCl 10 mg PO BID Tiotropium [Spiriva] 1 puff PO DAILY Ipratropium [ATROVENT Inhaler] 1 puff PO QID amLODIPine [Norvasc] 5 mg PO DAILY Potassium Chloride [K-Tab ER] 10 meq PO DAILY Mirtazapine [Remeron] 15 mg PO HS Furosemide [Lasix] 20 mg PO DAILY clonazePAM [Clonazepam] 0.5 mg PO HS PRN PRN Reason: Anxiety Tamsulosin [Flomax] 0.4 mg PO DAILY Finasteride [Proscar] 5 mg PO DAILY Discontinued Amoxicillin [Amoxil] 500 mg PO BID Clopidogrel [Plavix] 75 mg PO DAILY Sotalol [Betapace] 40 mg PO Q12HR Home Medications: Aspirin [Lo-Dose Aspirin EC] 81 mg PO HS 08/05/18 [History] clonazePAM [Clonazepam] 0.5 mg PO HS PRN 10/24/18 [History] Finasteride [Proscar] 5 mg PO DAILY 11/24/18 [History] Tamsulosin [Flomax] 0.4 mg PO DAILY 11/24/18 [History] Acetaminophen [Non-Aspirin] 650 mg PO Q6H PRN 01/18/19 [History] Ipratropium [ATROVENT Inhaler] 1 puff PO QID 01/18/19 [History] Memantine HCl 10 mg PO BID 01/18/19 [History] Tiotropium [Spiriva] 1 puff PO DAILY 01/18/19 [History] Furosemide [Lasix] 20 mg PO DAILY 03/28/19 [History] Mirtazapine [Remeron] 15 mg PO HS 03/28/19 [History] Potassium Chloride [K-Tab ER] 10 meq PO DAILY 03/28/19 [History] amLODIPine [Norvasc] 5 mg PO DAILY 03/28/19 [History] Metoprolol [Lopressor] 25 mg PO BID #60 tablet 03/30/19 [Rx] Allergies/Adverse Reactions: Allergy/AdvReac Type Severity Reaction Status Date / Time azithromycin [From Zithromax] Allergy Mild Hives Verified 01/18/19 08:06 fluticasone [From Flonase] AdvReac See Verified 01/18/19 08:06 Comments gabapentin AdvReac Headache Verified 01/18/19 08:06 Date of admission: 03/25/19 13:55 Primary care physician: Kiran Jacobo MD Consults: 03/25/19 13:43 Consult to Surgery [CONS] Stat Consulting Provider: Devin Morillo Reason for Consult: GI bleed-endoscopy Time Notified: 13:43 Call Completed: Yes 03/26/19 09:16 Consult to Occupational Therapy [CONS] Routine Comment: Evaluate, develop and implement POC Reason for Consult: limited mobility Does patient have active BEDREST order?: No Is patient medically & hemodynamically stable?: Yes Consult to Physical Therapy [CONS] Routine Comment: Evaluate, develop and implement POC Reason for Consult: limited mobility Does patient have active BEDREST order?: No Is patient medically & hemodynamically stable?: Yes 03/29/19 13:39 Consult to Cardiology [CONS] Routine Comment: Consulting Provider: Bernardo Musa Reason for Consult: tachuarryhthemia Call Completed: Yes - Constitutional Vitals: Temp Pulse Resp BP Pulse Ox 98.3 F 67 15 157/72 97 03/30/19 07:40 03/30/19 07:40 03/30/19 07:40 03/30/19 07:40 03/30/19 07:40 General appearance: Present: A&O X 3 Exam: GEN: NAD, Alert and awake , Pleasant and conversant SKIN: [place] warm acyanotic not jaundice, thin dry fragile HEART: Irregularly irregular rate and rhythm, no murmurs LUNGS: Somewhat diminished but appears CTA no wheeze or crackles, overall non labored ABDOMEN; Soft, non tender or distended, BS x 4 normactive EXT: No LE edema, Pedal pulses 1+, radial pulses 2+ PSYCH: Mood and affect is appropriate - Patient Status Disposition: Home Health Service Condition: Fair - Discharge Instructions Instructions: Atrial Fibrillation (DC) Follow Up With: Kiran Jacobo MD [Primary Care Provider] - Additional Instructions: follow up with grade teacher in 1-2 weeks
--- NOTE | 2019-03-30 13:19 | Physician Discharge Referral ---
Home Health/Hosp Referral Info Transfer to: Home Health Provider in Charge Post Discharge: PCP - Diagnosis (1) Paroxysmal atrial fibrillation Priority: Primary Status: Chronic - Respiratory Orders Smoking Cessation: Smoking cessation has been advised. For more information, call the [place] Tobacco Quit Line at 1-621-WMDY-NOW. - Diet/Nutrition Diet/Nutrition Orders: Cardiac Diet/Nutrition: List: as tolerated - Activity Activity: List: as tolerated Other Treatments: hold metoprolol for HR less than 55 - Transfer Medications Prescriptions: Metoprolol [Lopressor] 25 mg PO BID #60 tablet Home Medications: Aspirin [Lo-Dose Aspirin EC] 81 mg PO HS 08/05/18 [History] clonazePAM [Clonazepam] 0.5 mg PO HS PRN 10/24/18 [History] Finasteride [Proscar] 5 mg PO DAILY 11/24/18 [History] Tamsulosin [Flomax] 0.4 mg PO DAILY 11/24/18 [History] Acetaminophen [Non-Aspirin] 650 mg PO Q6H PRN 01/18/19 [History] Ipratropium [ATROVENT Inhaler] 1 puff PO QID 01/18/19 [History] Memantine HCl 10 mg PO BID 01/18/19 [History] Tiotropium [Spiriva] 1 puff PO DAILY 01/18/19 [History] Furosemide [Lasix] 20 mg PO DAILY 03/28/19 [History] Mirtazapine [Remeron] 15 mg PO HS 03/28/19 [History] Potassium Chloride [K-Tab ER] 10 meq PO DAILY 03/28/19 [History] amLODIPine [Norvasc] 5 mg PO DAILY 03/28/19 [History] Metoprolol [Lopressor] 25 mg PO BID #60 tablet 03/30/19 [Rx] Allergies/Adverse Reactions: Allergy/AdvReac Type Severity Reaction Status Date / Time azithromycin [From Zithromax] Allergy Mild Hives Verified 01/18/19 08:06 fluticasone [From Flonase] AdvReac See Verified 01/18/19 08:06 Comments gabapentin AdvReac Headache Verified 01/18/19 08:06 Certification: Further, I certify that my clinical findings support that this patient is homebound (i.e. absences from home require considerable and taxing effort and are for medical reasons or shinto services or infrequently or short duration when for other reasons) because: Homebound Reason: Patient requires assistance of a person or device to safely leave home Attestation: My signature below is to certify that this patient is under my care and that I, or nurse practitioner, or a physician's assistant front end manager working with me, has a [id number] encounter with this patient.
== END 2019-03-30 15:28 | disposition home health service (06) | DRG 378 ==
LOC: EMEROOARM 11:51 → ICNU 13:55 → 2NENU 03-29 05:27
PROVIDERS: ADMIT Student in an Organized Health Care Education/Training Program; ATTEND Student in an Organized Health Care Education/Training Program